=== PATIENT | female | born 1935 | race Caucasian/White ===

== ENCOUNTER 2016-10-21 21:25 | Emergency (ER) | payer MEDICARE, OTHER ==
[~2016-10-21] VITALS: Ht 162.6 cm; Wt 136.1 kg
[~2016-10-21 21:25] MED LIST: ASP81TEC PO; ATEN25TA PO; CALC-80 PO; HYDR1TAB71 PO; MTF500T PO; MULT-608 PO; OMEG1CAP51 PO; SERT50TA PO; SMV10T PO
[2016-10-21] MEDS ORDERED: LOSA50TA36 (21:48)
[2016-10-21] MEDS ORDERED: HYDR-3816 PO (21:48)
[2016-10-21] MEDS ORDERED: APIX5TAB PO (21:48)
[2016-10-21] MEDS ORDERED: AMLO5TAB2 PO (21:48)
[2016-10-21] MEDS ORDERED: DULO60CA58 (21:48)
[2016-10-21] MEDS ORDERED: ATEN50TA (21:48)
--- NOTE | 2016-10-21 21:52 | ED Fall/Injury ---
General Chief Complaint: Trauma-Non Activation Stated Complaint: FALL/RIGHT HIP PAIN Nursing Triage Note: FALL TO FLOOR IN BATHROOM TURNING WITH HER WALKER AND LEGS GAVE OUT. NO LOC. Source: patient, RN notes reviewed, EMS notes reviewed Exam Limitations: no limitations History of Present Illness Time seen by provider: 21:51 Initial Comments Patient presents via EMS p/ apparently falling while attempting to sit down on the commode. History of frequent falls c/ last being a week ago @ which time she sustain a laceration b/w her right 4th and 5th toes. Actually sounds like her little toe was probably dislocated and the patient relocated it herself. Did not seek treatment for that fall. Admits that once she is down, she can't get back up on her own and needs assistance which it sounds like why EMS was originally called [facility]. Patient apparently mentioned her right hip hurt a little and that is why she was ultimately brought in. Denying any hip pain or any other problems @ present. States she didn't hit her head and denies any LOC. Location Injury Occurred: HOME Occurred: just prior to arrival Injuries/Pain Location: no injury Context: lost balance Loss of Consciousness: no loss of consciousness Modifying Factors: Improves With Other (none) Associated Symptoms (Fall): Denies Symptoms Allergies and Home Medications Allergies Coded Allergies: No Known Drug Allergies (Unverified , 02/14/10) Home Medications Amlodipine Besylate 5 Mg Tablet, #30 (Reported) Apixaban 5 Mg Tablet, #180 (Reported) Aspirin 81 Mg Tabec, 81 MG PO DAILY, (Reported) Atenolol 50 Mg Tablet, #90 (Reported) Calcium Carbonate/Vitamin D3 1 Each Tablet, 1 EACH PO BID, (Reported) Duloxetine HCl 60 Mg Capsule.dr, #30 (Reported) Hydrocodone/Acetaminophen 1 Each Tablet, #60 (Reported) Losartan Potassium 50 Mg Tablet, #90 (Reported) Metformin Hcl 500 Mg Tablet, 1 EACH PO BID WITH MEALS, (Reported) Multivitamins 1 Tab Tablet, 1 TAB PO DAILY, (Reported) Mupirocin Calcium 15 Gm Cream..g., 1 APPLIC TP BID, #22 Ref 0 Prescribed by: VIJAY OSUNA on 10/21/163 [place]-3 Fatty Acids/Fish Oil 1 Each Capsule, 1 EACH PO DAILY, (Reported) Sertraline Hcl 50 Mg Tablet, 25 MG PO DAILY, (Reported) Simvastatin 10 Mg Tab, 10 MG PO DAILY, (Reported) Constitutional: see HPI : No All Other Systems Reviewed Negative Unless Noted: Yes (Negative excepted noted.) Past Qdhqlyy-Kzpatk-Ebnxev Hx Patient Social History Alcohol Use: Denies Use Recreational Drug Use: No Smoking Status: Former Smoker Type Used: Cigarettes Recent Foreign Travel: No Contact w/Someone Who Travel: No Recent Infectious Disease Expo: No Recent Hopitalizations: No Seasonal Allergies Seasonal Allergies: No Surgeries HX Surgeries: Yes Surgeries: Appendectomy, Bowel Surgery Respiratory Hx Respiratory Disorders: No Cardiovascular Hx Cardiac Disorders: Yes Cardiac Disorders: High Cholesterol, Hypertension Neurological Hx Neurological Disorders: No Reproductive System Hx Reproductive Disorders: No Sexually Transmitted Disease: No Genitourinary Hx Genitourinary Disorders: No Gastrointestinal Hx Gastrointestinal Disorders: Yes (DIVERTICULITIS) Musculoskeletal Hx Musculoskeletal Disorders: Yes (ARTHRITIS) Musculoskeletal Disorders: Arthritis Endocrine Hx Endocrine Disorders: Yes Endocrine Disorders: Diabetes, Non-Insulin dep HEENT HX ENT Disorders: No HEENT Disorders: Cataract Cancer Hx Cancer: No Psychosocial Hx Psychiatric Problems: Yes Behavioral Health Disorders: Depression Integumentary HX Skin/Integumentary Disorder: No Blood Transfusions Hx Blood Disorders: No Physical Exam Vital Signs Vital Sign - Last 12Hours 10/21/16 21:25 Temp 97.2 Pulse 108 Resp 20 B/P (MAP) 104/53 Pulse Ox 93 O2 Delivery Room Air Capillary Refill : Less Than 3 Seconds General Appearance: WD/WN, no apparent distress, obese HEENT: normal ENT inspection Neck: normal inspection Cardiovascular: regular rate, rhythm Respiratory: no respiratory distress Gastrointestinal: soft, other (obese) Rectal: deferred Back: normal inspection Extremities: normal inspection Neurologic/Psychiatric: no motor/sensory deficits, alert, oriented x 3 Skin: warm/dry, other (clotted blood over laceration b/w her right 4th and 5th toes. Doesn't appear infected, but is overly moist appearing.) Megan Coma Score Best Eye Response: (4) Open Spontaneously Best Verbal Response: (5) Oriented Best Motor Response: (6) Obeys Commands Megan Total: 15 Progress/Results/Core Measures Results/Orders My Orders Orders - VIJAY OSUNA DO Pelvis (10/21/16 21:53) Hip, Right, 2 Views (10/21/16 21:53) Vital Signs/I&O Vital Sign - Last 12Hours 10/21/16 10/21/16 10/21/16 21:25 23:06 23:06 Temp 97.2 97.2 97.2 Pulse 108 93 93 Resp 20 20 20 B/P (MAP) 104/53 116/62 (80) Pulse Ox 93 97 97 O2 Delivery Room Air Room Air Blood Pressure Mean: 70 Progress Note : Progress Note Told the patient to quick soaking her foot/laceration in H2O@ & H2O. To let the wound dry out some. Will have her place some Bactroban on it BID (Rx given) . Diagnostic Imaging Diagonstic Imaging: Xray Plain Films/CT/US/NM/MRI: pelvis, hip Reviewed: Reviewed by Me (nothing acute) Departure Impression Impression: Primary Impression: Fall Additional Impressions: Contusion of right hip region Laceration of foot Disposition: HOME, SELF-CARE Condition: Stable Departure-Patient Inst. Decision time for Depature: 22:41 Referrals: JEFFERSON VILLAGOMEZ DO (PCP/Family) Primary Care Physician Patient Instructions: Wound Care (DC) Scripts Mupirocin Calcium (Bactroban) 15 Gm Cream..g. 1 APPLIC TP BID, #22 TUBE 0 Refills Prov: VIJAY OSUNA DO 10/21/16 VIJAY OSUNA DO Oct 21, 2016 21:52
[2016-10-21] MEDS ORDERED: MUPI15CR TP (22:42)
[2016-10-21 23:06] VITALS: BP 116/62
--- NOTE | 2016-10-22 07:36 | Diagnostic Imaging Report ---
INDICATION: Pain. FINDINGS: There are degenerative changes in the lumbar spine. Bony pelvis is intact. There is no fracture or dislocation. Soft tissues are unremarkable. IMPRESSION: Degenerative change in the lumbar spine. No acute fracture or dislocation. Dictated by: Dictated on workstation # [id number]
--- NOTE | 2016-10-22 07:37 | Diagnostic Imaging Report ---
INDICATION: Back pain. 2 views were obtained. FINDINGS: The alignment is normal. There are mild degenerative changes. There is no fracture or dislocation. Soft tissues are unremarkable. IMPRESSION: Mild degenerative changes in the right hip, otherwise unremarkable. Dictated by: Dictated on workstation # [id number]
--- OUTSIDE RECORDS SUMMARY | 2016-10-24 10:46 | XMS REPORT | Clinical Summary ---
Author Author User, [employer] Organization [facility]ly [facility], [facility] Physician [place] Address Unknown Phone Unavailable Allergies, Adverse Reactions, Alerts Allergy Name Reaction Description Start Date Severity Status Provider No Known Allergies Shakila Wheatley Conditions or Problems Problem Name Problem Code Onset Date Status Entry Date Provider Comment Standard Description Annotate HYPERTENSION 401.1 Active Gita Helton Benign essential hypertension HYPERCHOLESTEROLEMIA 272.0 Active Gita Helton Pure hypercholesterolemia EDEMA LEG 782.3 Active Gita Helton Edema DIVERTICULOSIS, COLON 562.10 Resolved Gita Helton Diverticulosis of colon (without mention of hemorrhage) KNEE PAIN 719.46 Resolved Gita Helton Pain in joint involving lower leg WEIGHT GAIN, ABNORMAL 783.1 Active Gita Helton Abnormal weight gain WHEEZING 786.07 Resolved Gita Helton Wheezing COUGH 786.2 Resolved Gita Helton Cough SINUS CONGESTION 478.1 Resolved Gita Helton Other diseases of nasal cavity and sinuses GRIEF REACTION, ACUTE 309.0 Resolved Gita Helton Adjustment disorder with depressed mood DERMATITIS 692.9 Resolved Gita Helton Contact dermatitis and other eczema, unspecified cause SCREENING MAMMOGRAM NEC V76.12 Resolved Gita Helton Other screening mammogram BREAST MASS, RIGHT 611.72 Resolved Gita Helton Lump or mass in breast SCREENING FOR OSTEOPOROSIS V82.81 Resolved Gita Helton Screening for osteoporosis HYPERGLYCEMIA, MILD 790.6 Resolved Gita Helton Other abnormal blood chemistry ANKLE PAIN, LEFT 719.47 Resolved Gita Helton Pain in joint involving ankle and foot VERTIGO 780.4 Resolved Gita Helton Dizziness and giddiness DVT 453.40 Resolved Gita Helton Acute venous embolism and thrombosis of unspecified deep vessels of lower extremity OSTEOARTHRITIS 715.90 Active Gita Helton Osteoarthrosis, unspecified whether generalized or localized, involving unspecified site MAMMOGRAM, ABNORMAL, RIGHT 793.81 Resolved Gita Helton Mammographic microcalcification 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 Gita Helton Displacement of lumbar intervertebral disc without myelopathy ANXIETY 300.00 Active Gita Helton Anxiety state, unspecified CHEST PAIN, ATYPICAL 786.59 Resolved Gita Helton Other chest pain KNEE PAIN 719.46 Resolved Gita Helton Pain in joint involving lower leg CHEST PAIN, ATYPICAL 786.59 Resolved Gita Helton Other chest pain DIABETES MELLITUS, NONINSULIN DEPENDENT (NIDDM) 250.02 Active Gita Helton Diabetes mellitus without mention of complication, type II or unspecified type, uncontrolled URTICARIA, ACUTE 708.9 Resolved Gita Helton Unspecified urticaria ACNE ROSACEA 695.3 Active Gita Helton Rosacea ABDOMINAL MASS 789.30 Resolved Gita Helton Abdominal or pelvic swelling, mass, or lump, unspecified site KNEE PAIN 719.46 Active Gita Helton Pain in joint involving lower leg ATRIAL FIBRILLATION 427.31 Active Gita Helton Atrial fibrillation Medication List Medication Instructions Start Date Stop Date Generic Name ND Status Provider Patient Instruction AMBIEN 10 MG TAB 1 PO QHS prn ZOLPIDEM TARTRATE 64070392217 Active Gita Helton LASIX 20 MG TAB 1 PO QD prn for swelling FUROSEMIDE 59428571338 No Longer Active Gita Helton VITAMIN D3 5000 UNIT CAPS 1 PO daily CHOLECALCIFEROL 34408140295 Active Gita Helton NAPROXEN 500 MG TAB 1 PO BID NAPROXEN 71493942492 No Longer Active Gitanaseem Helton AMBIEN 10 MG TAB 1 PO QHS prn ZOLPIDEM TARTRATE 66244359587 No Longer Active Gita Helton ATENOLOL 50 MG TABS 1 PO daily ATENOLOL 81127654628 Active Gita Helton COZAAR 50 MG TAB 1 PO daily LOSARTAN POTASSIUM 24459795826 Active Gita Helton ELIQUIS 5 MG TABS 1 PO BID APIXABAN 64264158371 Active Gita Helton HYDROCODONE-ACETAMINOPHEN 7.5-325 MG TABS 1 PO BID prn HYDROCODONE- ACETAMINOPHEN 72467262247 Active Gita Helton TUSSIONEX PENNKINETIC ER 10-8 MG/5ML LQCR 1 tsp PO BID prn HYDROCOD POLST-CHLORPHEN POLST 79519994578 Active Val Luis FLEXERIL 10 MG TAB 1 PO TID prn CYCLOBENZAPRINE HCL 86497165376 No Longer Active Gita Helton ATROVENT 0.06 % SOLN 2 puffs each nostril QHS. IPRATROPIUM BROMIDE 33392450339 No Longer Active Gita Haleigh Helton MOTRIN 600 MG TAB 1 po q 8 hrs prn IBUPROFEN 00917528517 No Longer Active Gita Haleigh Helton TRIAMCINOLONE ACETONIDE 0.1 % CREA apply BID prn TRIAMCINOLONE ACETONIDE (TOP) 39349788235 No Longer Active Gita Haleigh Helton MECLIZINE HCL 25 MG TABS 1 PO Q6hrs prn dizziness MECLIZINE HCL 36890863519 No Longer Active Gita Haleigh Helton TUSSIONEX PENNKINETIC ER 8-10 MG/5ML LQCR 1 tsp BID prn cough CHLORPHENIRAMINE-HYDROCODONE 31184536695 No Longer Active Gitanaseem Helton OSTEO COMPLEX CAPS DIRECTED BID MULTIPLE VITAMINS-MINERALS 79939706364 No Longer Active Gita Haleigh Helton MICHELE 180 MG TABS 1 PO BID for 7 days FEXOFENADINE HCL No Longer Active Gitanaseem Helton PREDNISONE 20 MG TAB 3 pills daily at once for 2 days, 2 pills daily at once for 5 days, 1 once daily for 3 days PREDNISONE 87368035773 No Longer Active Gita Helton NORVASC 5 MG TAB 1 PO QD AMLODIPINE BESYLATE 17564572329 Active Lei De Leon METROGEL 1 % GEL apply daily to affected areas on nose and cheeks METRONIDAZOLE 54678557716 No Longer Active Gitanaseem Helton AURALGAN SOLN 2 drops left ear QID prn ANTIPYRINE- BENZOCAINE-POLYCOS 92417497893 No Longer Active Val Luis PERCOCET 5-325 MG TAB 1 PO Q 6 hours PRN alternating with hydrocodon PRN 2008 OXYCODONE-ACETAMINOPHEN 80276294277 No Longer Active Gita Haleigh Helton XANAX 0.25 MG TABS 1 PO BID prn ALPRAZOLAM 34630336761 Active Samira Casey PREDNISONE 20 MG TAB 3 pills daily at once for 2 days, 2 pills daily at once for 2 days, 1 once daily for 2 days PREDNISONE 09868663639 No Longer Active Gita Haleigh Helton LORTAB 5 5-500 MG TABS 1 to 2 PO Q6hrs prn ACETAMINOPHEN-HYDROCODONE 55457031227 No Longer Active Gita Haleigh Helton XANAX 0.25 MG TABS 1 Po Q6hrs prn ALPRAZOLAM 18629399278 No Longer Active Gita Haleigh Helton AMBIEN 5 MG TABS 1 PO AT HS PRN ZOLPIDEM TARTRATE 77749827556 No Longer Active Gita Haleigh Helton ZOLOFT 50 MG TAB 1 PO Daily SERTRALINE HCL 44598576100 Active Val Luis FISH OIL 1000 MG CAPS 1 PO daily [place]-3 FATTY ACIDS 52297341174 Active Gita Haleigh Helton CALTRATE 600 PLUS-VIT D 600-200 MG-IU TABS 1 PO BID CALCIUM-VITAMIN D 95387542267 Active Gita Haleigh Helton AMBIEN 10 MG TAB 1/2 to 1 po daily at HS prn ZOLPIDEM TARTRATE 26440371316 No Longer Active Gitanaseem Helton CYMBALTA 20 MG CPEP 1 po daily DULOXETINE HCL 89237108868 No Longer Active Harish Cook HISTINEX HC 5-2-2.5 MG/5ML SYRP 5 cc PO Q6hrs. PRN cough [id number] 17290451083 No Longer Active Gita Haleigh Helton METFORMIN HCL 500 MG TABS 1 po BID METFORMIN HCL 67374174921 Active Val Luis NAPROXEN 500 MG TAB 1 PO BID for 7 days NAPROXEN 45866619496 No Longer Active Maura Chong DARVOCET-N 100 100-650 MG TAB 1 PO Q6hrs prn shoulder pain PROPOXYPHENE N-APAP 60281565772 No Longer Active Gita Haleigh Helton GLUCOPHAGE 500 MG TAB 1 PO BID METFORMIN HCL 18182034462 No Longer Active Gita Haleigh Helton CLARINEX 5 MG TABS 1 PO daily DESLORATADINE 68140590030 No Longer Active Gita Haleigh Helton ZOCOR 10 MG TABS 1 PO daily for cholesterol SIMVASTATIN 95559942260 Active Val Lius METFORMIN HCL 500 MG TABS 1 PO BID METFORMIN HCL 79564433087 No Longer Active Gita Haleigh Helton AMBIEN 10 MG TABS 1 PO QHS prn insomnia ZOLPIDEM TARTRATE 48390783776 No Longer Active Gita Haleigh Helton ASPIRIN 81 MG TAB 1 PO daily ASPIRIN 97518140006 Active Gita Haleigh Helton CLARINEX 5 MG TABS 1 po daily DESLORATADINE 96324644143 No Longer Active Gita Haleigh Helton MOBIC 7.5 MG TABS 1 PO BID for knee pain MELOXICAM 56697544518 No Longer Active Gita Haleigh Helton K-DUR 10 MEQ TAB CR 1 PO daily POTASSIUM CHLORIDE 87893468196 No Longer Active Gita Haleigh Helton LASIX 40 MG TABS 1 PO daily prn FUROSEMIDE 50099635664 No Longer Active Gita Haleigh Helton LUNESTA 2 MG TABS 1 PO QHS prn ESZOPICLONE 64046584567 No Longer Active Gita Haleigh Helton VIACTIV 500-100-40 CHEW 1 PO BID CALCIUM-VITAMIN D-VITAMIN K 61858465595 No Longer Active Gita Haleigh Helton HISTINEX HC 5-2-2.5 MG/5ML SYRP 1 tsp PO Q6hrs prn [id number] 48543842137 No Longer Active Gita Haleigh Helton KENALOG 0.1 % CREA Apply to arms daily prn TRIAMCINOLONE ACETONIDE 31857907132 No Longer Active Gita Haleigh Helton PREDNISONE 20 MG TABS 2 PO daily for 2 days and then 1 PO daily for 3 days PREDNISONE 30276083946 No Longer Active Gita Haleigh Helton AMBIEN 10 MG TABS 1/2 to 1 po daily at HS prn ZOLPIDEM TARTRATE 97697624020 No Longer Active Gita Haleigh Helton PREDNISONE 20 MG TAB 1 PO QD for 3 days PREDNISONE 15868589747 No Longer Active Crystal LaGalle NAPROXEN 500 MG TAB 1 PO BID for 7 days NAPROXEN 48578545140 No Longer Active Crystal LaGalle CALTRATE 600 PLUS-VIT D 600-200 MG-IU TABS 1 PO QD CALCIUM- VITAMIN D 17757614220 No Longer Active Gitanaseem Helton ADVAIR DISKUS 100-50 MCG/DOSE MISC 1 puff BID FLUTICASONE-SALMETEROL 66640582061 No Longer Active Gita Haleigh Helton MUCINEX DM 30-600 MG TB12 1 PO Q12 hrs prn cough DEXTROMETHORPHAN-GUAIFENESIN 83583652835 No Longer Active Gita Haleigh Helton NAPROXEN 500 MG TAB 1 PO BID for 5 days NAPROXEN 29476673864 No Longer Active Gita Haleigh Helton PREDNISONE 20 MG TABS 1 PO BID for 3 days PREDNISONE 50686982976 No Longer Active Gita Haleigh Helton ZOLOFT 50 MG TABS 1 po daily SERTRALINE HCL 67726859423 No Longer Active Gita Haleigh Sunitha Immunizations Vaccine Administration Date Value Standard Description Influenza vaccine given declines influenza virus vaccine, unspecified formulation pneumococcal immunization administered declines pneumococcal polysaccharide vaccine, 23 valent Vital Signs Date Name Value Unit Range Description blood pressure, diastolic - 8462-4 88 mm[Hg] BP herrera blood pressure, systolic - 8480-6 130 mm[Hg] BP sys pulse rate E&M - 8867-4 80 /min Heart rate respiratory rate E&M - 9279-1 14 /min Resp rate weight E&M - 3141-9 304 [lb_av] Weight Measured blood pressure, diastolic - 8462-4 80 mm[Hg] BP herrera blood pressure, systolic - 8480-6 143 mm[Hg] BP sys pulse rate E&M - 8867-4 72 /min Heart rate respiratory rate E&M - 9279-1 14 /min Resp rate temperature E&M 98.6 [degF] Body temperature weight E&M - 3141-9 305 [lb_av] Weight Measured blood pressure, diastolic - 8462-4 72 mm[Hg] BP herrera blood pressure, systolic - 8480-6 144 mm[Hg] BP sys pulse rate E&M - 8867-4 76 /min Heart rate respiratory rate E&M - 9279-1 14 /min Resp rate weight E&M - 3141-9 323 [lb_av] Weight Measured Diagnostic Results Date Name Value Unit Range Description Clinical Lists Update: CBC,CMP,FLP,HgA1c - Chemistry Estimated Glomerular Filtration Rate (calc) >60 mL/min/1.73m2 glucose, plasma fasting 104 mg/dL very low density lipoproteins 30 mg/dL sodium, serum 142 mmol/L triglyceride, serum, fasting 152 mg/dL bilirubin, serum, total 0.7 mg/dL alanine aminotransferase (SGPT), serum 26 U/L aspartate aminotransferase (SGOT), serum 27 U/L protein, total, serum 7.3 g/dL potassium, serum 4.0 mmol/L LDL cholesterol, serum 87 mg/dL hemoglobin A1C, blood, as % of total hemoglobin 5.9 % HDL cholesterol, serum 83 mg/dL creatinine, serum 0.72 mg/dL carbon dioxide, venous blood 21 mmol/L cholesterol, serum 195 mg/dL chloride, serum 108 mmol/L calcium, serum 9.3 mg/dL urea nitrogen, blood 10 mg/dL alkaline phosphatase, serum 52 U/L albumin, serum 4.0 g/dL Clinical Lists Update: CBC,CMP,FLP,HgA1c - Hematology erythrocyte (RBC) count 4.59 10*6/mm3 red blood cell distribution width 14.1 % hematocrit, blood 42 % mean corpuscular volume, RBC 92 fL platelet count 241 10*3/mm3 leukocyte count, blood 6.6 10*3/mm3 hemoglobin, blood 14.1 g/dL Clinical Lists Update: CMP,Chol,Trig,HgA1c - Chemistry aspartate aminotransferase (SGOT), serum 23 U/L alanine aminotransferase (SGPT), serum 22 U/L bilirubin, serum, total 0.7 mg/dL triglyceride, serum, fasting 134 mg/dL sodium, serum 140 mmol/L glucose, plasma fasting 106 mg/dL Estimated Glomerular Filtration Rate (calc) >60 mL/min/1.73m2 creatinine, serum 0.72 mg/dL albumin, serum 4.1 g/dL alkaline phosphatase, serum 44 U/L urea nitrogen, blood 13 mg/dL calcium, serum 9.4 mg/dL chloride, serum 105 mmol/L cholesterol, serum 184 mg/dL carbon dioxide, venous blood 23 mmol/L hemoglobin A1C, blood, as % of total hemoglobin 6.1 % potassium, serum 4.0 mmol/L protein, total, serum 7.2 g/dL Clinical Lists Update: CMP,FLP - Chemistry carbon dioxide, venous blood 24 mmol/L aspartate aminotransferase (SGOT), serum 17 U/L cholesterol, serum 179 mg/dL triglyceride, serum, fasting 133 mg/dL chloride, serum 106 mmol/L sodium, serum 142 mmol/L calcium, serum 9.9 mg/dL very low density lipoproteins 27 mg/dL urea nitrogen, blood 14 mg/dL glucose, plasma fasting 98 mg/dL alanine aminotransferase (SGPT), serum 14 U/L creatinine, serum 0.79 mg/dL bilirubin, serum, total 0.8 mg/dL HDL cholesterol, serum 78 mg/dL albumin, serum 4.2 g/dL LDL cholesterol, serum 81 mg/dL potassium, serum 4.0 mmol/L Estimated Glomerular Filtration Rate (calc) >60 mL/min/1.73m2 protein, total, serum 7.1 g/dL alkaline phosphatase, serum 48 U/L Clinical Lists Update: Microalbumin - Urinalysis microalbumin, urine, semiquantitative 35.3 mg/dL Encounters Code Encounter Date Provider Facility CPT-22122 Ofc Vst, Est Level IV 15:18:02 UMA Helton DO, FAC CPT-26578 Ofc Vst, Est Level IV 17:35:51 CDT Gita Haleigh Weems Helton, DO, FACP CPT-15797 Ofc Vst, Est Level III 12:34:20 CDT Gita Haleigh Weems Helton, DO, FACP CPT-57747 Ofc Vst, Est Level III 20:55:26 CDT Gita Haleigh Weems Helton, DO, FACP CPT-85144 Ofc Vst, Est Level IV 10:29:22 CDT Gita Haleigh Weems Helton, DO, FACP CPT-20198 Ofc Vst, Est Level IV 11:05:40 CDT Gita Haleigh Weems Sunitha, DO, FACP CPT-69272 Ofc Vst, Est Level III 11:28:59 CDT Gita Haleigh Weems Sunitha, DO, FACP CPT-10611 Ofc Vst, Est Level IV 11:27:36 CDT Gita Haleigh Weems Sunitha, DO, FACP CPT-66322 Ofc Vst, Est Level IV 10:53:32 [employer] Gita Weems Sunitha, DO, FACP CPT-45657 Ofc Vst, Est Level IV 15:49:54 CDT Gita Haleigh Weems Sunitha, DO, FACP CPT-06963 Ofc Vst, Est Level IV 11:28:10 [employer] Gitanaseem Weems Sunitha, DO, FACP CPT-98323 Ofc Vst, Est Level IV 11:56:10 CDT Gita Haleigh Weems Sunitha, DO, FACP CPT-75223 Ofc Vst, Est Level IV 12:04:06 CDT Gita Haleigh Weems Sunitha, DO, FACP CPT-47214 Ofc Vst, Est Level V 11:23:16 CDT Gita Weems Helton, DO, FACP CPT-94971 Ofc Vst, Est Level IV 11:47:17 [employer] Gita Weems Helton, DO, FACP CPT-33558 Ofc Vst, Est Level V 10:02:16 CDT Gita Weems Helton, DO, FACP CPT-45696 Ofc Vst, Est Level IV 08:43:25 CDT Val Weems Helton, DO, FACP CPT-89076 Ofc Vst, Est Level IV 10:39:12 [employer] Gita Haleigh Weems Helton, DO, FACP CPT-29713 Ofc Vst, Est Level IV 10:59:49 [employer] Gita Weems Sunitha, DO, FACP CPT-27578 Ofc Vst, Est Level V 10:46:55 [employer] Gita Weems Helton, DO, FACP CPT-40998 Ofc Vst, Est Level IV 12:04:42 CDT Gita Weems Helton, DO, FACP CPT-27596 Ofc Vst, Est Level IV 11:14:36 [employer] Gita Weems Sunitha, DO, FACP CPT-46336 Ofc Vst, Est Level IV 10:18:40 CDT Gitanaseem Weems Helton, DO, FACP CPT-36356 Ofc Vst, Est Level IV 16:46:18 CDT Gita Haleigh Weems Sunitha, DO, FACP CPT-61476 Ofc Vst, Est Level III 11:32:07 [employer] Gita Haleigh Sunitha [employer] CPT-27960 Ofc Vst, Est Level IV 14:09:38 [employer] Gita Helton [employer] CPT-52400 Ofc Vst, Est Level IV 10:03:11 [employer] Gita Helton [employer] CPT-44724 Ofc Vst, Est Level IV 12:03:11 CDT Gita Haleighanshu Helton [employer] CPT-37911 Ofc Vst, Est Level III 09:48:20 CDT Gita Haleigh Helton [facility] [employer] CPT-58065 Ofc Vst, Est Level III 16:19:43 CDT Gita Haleihg Helton [employer] CPT-50772 Ofc Vst, Est Level IV 11:04:51 [employer] Gita Helton [employer] CPT-43380 Ofc Vst, Est Level III 10:47:19 [employer] Gita Helton [facility] [employer] CPT-04899 Ofc Vst, Est Level III 14:33:20 [employer] Gita Helton [facility] [employer] CPT-85535 Ofc Vst, New Level III 14:54:02 [employer] Gita Helton [employer] Procedures Code Procedure Name Date Entry Date Standard Description CPT-G0439 Medicare Annual Wellness Visit 16:35:13 CDT CPT-G8445 E-Prescribing Not sent due to no medication given 20:31: 07 [employer] CPT-G0439 Medicare Annual Wellness Visit 20:31:07 [employer] CPT-G8446 E-Prescribing not done due to controlled substance 12:34 :20 CDT CPT-G8443 E-Prescribing Medication Sent 20:55:26 CDT CPT-G8446 E-Prescribing not done due to controlled substance 17:19 :30 [employer] CPT-G0438 Medicare Annual Wellness Visit Initial 17:19:30 [employer] MAN
--- OUTSIDE RECORDS SUMMARY | 2016-10-24 10:47 | XMS REPORT | Clinical Summary ---
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 Active iGta [place] Diabetes mellitus without mention of complication, [...] Generic Name ND Status Provider Patient Instruction NAPROXEN 500 MG TAB 1 PO BID NAPROXEN [id number] No Longer Active Gita Helton AMBIEN 10 MG TAB 1 PO QHS prn ZOLPIDEM TARTRATE 69184784158 No Longer Active Gita Helton ATENOLOL 50 MG TABS 1 PO daily ATENOLOL 92828813689 Active Gita Helton COZAAR 50 MG TAB 1 PO daily LOSARTAN POTASSIUM 00683728044 Active Gita Hleton ELIQUIS 5 MG TABS 1 PO BID APIXABAN 46967668801 Active Gita Helton HYDROCODONE-ACETAMINOPHEN 7.5-325 MG TABS 1 PO BID prn HYDROCODONE- ACETAMINOPHEN 29496655359 Active Val Luis TUSSIONEX PENNKINETIC ER 10-8 MG/5ML LQCR 1 tsp PO BID prn HYDROCOD POLST-CHLORPHEN POLST 25484683818 Active Val Luis FLEXERIL 10 MG TAB 1 PO TID prn CYCLOBENZAPRINE HCL 26349947772 No Longer Active Gita Helton ATROVENT 0.06 % SOLN 2 puffs each nostril QHS. IPRATROPIUM BROMIDE 83039605395 No Longer Active Gita Helton MOTRIN 600 MG TAB 1 po q 8 hrs prn IBUPROFEN 93324992450 No Longer Active Gita Helton TRIAMCINOLONE ACETONIDE 0.1 % CREA apply BID prn TRIAMCINOLONE ACETONIDE (TOP) 16146025588 No Longer Active Gita Helton MECLIZINE HCL 25 MG TABS 1 PO Q6hrs prn dizziness MECLIZINE HCL 27610924837 No Longer Active Gitanaseem Helton TUSSIONEX PENNKINETIC ER 8-10 MG/5ML LQCR 1 tsp BID prn cough CHLORPHENIRAMINE-HYDROCODONE 16688980066 No Longer Active Gitanaseem Helton OSTEO COMPLEX CAPS DIRECTED BID MULTIPLE VITAMINS-MINERALS 08492161470 No Longer Active Gitanaseem Helton MICHELE 180 MG TABS 1 PO BID for 7 days FEXOFENADINE HCL No Longer Active Gita Helton PREDNISONE 20 MG TAB 3 pills daily at once for 2 days, 2 pills daily at once for 5 days, 1 once daily for 3 days PREDNISONE 22151655474 No Longer Active Gita Helton NORVASC 5 MG TAB 1 PO QD AMLODIPINE BESYLATE 38035706206 Active Lei Jacksonnes VITAMIN D 1000 UNIT TABS 1 PO Daily CHOLECALCIFEROL 05741152095 Active Gita Helton METROGEL 1 % GEL apply daily to affected areas on nose and cheeks METRONIDAZOLE 57445552087 No Longer Active Gita Helton AURALGAN SOLN 2 drops left ear QID prn ANTIPYRINE- BENZOCAINE-POLYCOS 68652891159 No Longer Active Val [place] PERCOCET 5-325 MG TAB 1 PO Q 6 hours PRN alternating with hydrocodon PRN 2008 OXYCODONE-ACETAMINOPHEN 61883822234 No Longer Active Gitanaseem Helton XANAX 0.25 MG TABS 1 PO BID prn ALPRAZOLAM 94832704893 Active Samira Casey PREDNISONE 20 MG TAB 3 pills daily at once for 2 days, 2 pills daily at once for 2 days, 1 once daily for 2 days PREDNISONE 49023599052 No Longer Active Gita Haleigh [place] LORTAB 5 5-500 MG TABS 1 to 2 PO Q6hrs prn ACETAMINOPHEN-HYDROCODONE 77447475429 No Longer Active Gita Haleigh [place] XANAX 0.25 MG TABS 1 Po Q6hrs prn ALPRAZOLAM 19937185376 No Longer Active Gita Haleigh [place] AMBIEN 5 MG TABS 1 PO AT HS PRN ZOLPIDEM TARTRATE 19338946711 No Longer Active Gita Haleigh [place] ZOLOFT 50 MG TAB 1 PO Daily SERTRALINE HCL 47013342215 Active Val Luis FISH OIL 1000 MG CAPS 1 PO daily OMEGA-3 FATTY ACIDS 22447861923 Active Gita Haleigh [place] CALTRATE 600 PLUS-VIT D 600-200 MG-IU TABS 1 PO BID CALCIUM-VITAMIN D 36584783850 Active Gita Haleigh [place] AMBIEN 10 MG TAB 1/2 to 1 po daily at HS prn ZOLPIDEM TARTRATE 21019235288 No Longer Active Gitanaseem [place]ton CYMBALTA 20 MG CPEP 1 po daily DULOXETINE HCL 29143249090 No Longer Active Harish Cook HISTINEX HC 5-2-2.5 MG/5ML SYRP 5 cc PO Q6hrs. PRN cough MHZOXLOID-AMYXZEGYH-VEHBPRYG 27106738660 No Longer Active Gita Haleigh [place] METFORMIN HCL 500 MG TABS 1 po BID METFORMIN HCL 77196292009 Active Val Luis NAPROXEN 500 MG TAB 1 PO BID for 7 days NAPROXEN 20562690664 No Longer Active Maura Chong DARVOCET-N 100 100-650 MG TAB 1 PO Q6hrs prn shoulder pain PROPOXYPHENE N-APAP 39304626281 No Longer Active Gita Haleigh [place] LASIX 20 MG TAB 1 PO QD prn for swelling FUROSEMIDE 82088510277 Active Val Luis GLUCOPHAGE 500 MG TAB 1 PO BID METFORMIN HCL 48842192616 No Longer Active Gita Haleigh [place] CLARINEX 5 MG TABS 1 PO daily DESLORATADINE 89968915333 No Longer Active Gita Haleigh [place] ZOCOR 10 MG TABS 1 PO daily for cholesterol SIMVASTATIN 51676262738 Active Val Luis METFORMIN HCL 500 MG TABS 1 PO BID METFORMIN HCL 21396016574 No Longer Active Gita Haleigh [place] AMBIEN 10 MG TABS 1 PO QHS prn insomnia ZOLPIDEM TARTRATE 39317826118 No Longer Active Gita Haleigh [place] ASPIRIN 81 MG TAB 1 PO daily ASPIRIN 94493481223 Active Gita Haleigh [place] CLARINEX 5 MG TABS 1 po daily DESLORATADINE 07279827534 No Longer Active Gita Haleigh [place] MOBIC 7.5 MG TABS 1 PO BID for knee pain MELOXICAM 44885023187 No Longer Active Gita Haleigh [place] K-DUR 10 MEQ TAB CR 1 PO daily POTASSIUM CHLORIDE 04391254581 No Longer Active Gita Haleigh [place] LASIX 40 MG TABS 1 PO daily prn FUROSEMIDE 35779971141 No Longer Active Gita Haleigh [place] LUNESTA 2 MG TABS 1 PO QHS prn ESZOPICLONE 42069131113 No Longer Active Gita Haleigh [place] VIACTIV 500-100-40 CHEW 1 PO BID CALCIUM-VITAMIN D-VITAMIN K 29603869436 No Longer Active Gita Haleigh [place] HISTINEX HC 5-2-2.5 MG/5ML SYRP 1 tsp PO Q6hrs prn PPXEJNCVG-IQCXSRONY-SIDGSBLX 83809539599 No Longer Active Gita Haleigh [place] KENALOG 0.1 % CREA Apply to arms daily prn TRIAMCINOLONE ACETONIDE 54676678706 No Longer Active Gita Haleigh [place] PREDNISONE 20 MG TABS 2 PO daily for 2 days and then 1 PO daily for 3 days PREDNISONE 96398290659 No Longer Active Gita Haleigh [place] AMBIEN 10 MG TABS 1/2 to 1 po daily at HS prn ZOLPIDEM TARTRATE 47636914995 No Longer Active Gita Haleigh [place] PREDNISONE 20 MG TAB 1 PO QD for 3 days PREDNISONE 40868296839 No Longer Active Crystal LaGalle NAPROXEN 500 MG TAB 1 PO BID for 7 days NAPROXEN 12211204836 No Longer Active Crystal LaGalle CALTRATE 600 PLUS-VIT D 600-200 MG-IU TABS 1 PO QD CALCIUM- VITAMIN D 18755594611 No Longer Active Gita Haleigh [place] ADVAIR DISKUS 100-50 MCG/DOSE MISC 1 puff BID FLUTICASONE-SALMETEROL 09977565761 No Longer Active Gita Haleigh [place] MUCINEX DM 30-600 MG TB12 1 PO Q12 hrs prn cough DEXTROMETHORPHAN-GUAIFENESIN 54977009258 No Longer Active Gitanaseem Helton NAPROXEN 500 MG TAB 1 PO BID for 5 days NAPROXEN 93862649448 No Longer Active Gita Haleigh [place] PREDNISONE 20 MG TABS 1 PO BID for 3 days PREDNISONE 00930049097 No Longer Active Gita Haleigh [place] ZOLOFT 50 MG TABS 1 po daily SERTRALINE HCL 94546231225 No Longer Active Gita Haleigh [place] Immunizations Vaccine Administration Date Value Standard Description Influenza vaccine given declines influenza virus vaccine, unspecified formulation pneumococcal immunization administered declines pneumococcal polysaccharide vaccine, 23 valent Vital Signs Date Name Value Unit Range Description blood pressure, diastolic - 8462-4 80 mm[Hg] [...] mg/dL Encounters Code Encounter Date Provider Facility CPT-54632 Ofc Vst, Est Level IV 15:18:02 LEATH[facility] CUTTER Gita Helton DO, FACP CPT-42568 Ofc Vst, Est Level IV 17:35:51 CDT Gita Helton DO, FACP CPT-57081 Ofc Vst, Est Level III 12:34:20 CDT Gita [place] DO, FACP CPT-88919 Ofc Vst, Est Level III 20:55:26 CDT Gita [place] DO, FACP CPT-75255 Ofc Vst, Est Level IV 10:29:22 CDT Gita Haleigh [place] Gita S [place], DO, FACP CPT-30743 Ofc Vst, Est Level IV 11:05:40 CDT Gitanaseem Weems [place], DO, FACP CPT-05173 Ofc Vst, Est Level III 11:28:59 CDT Gita Weems [place], DO, FACP CPT-19325 Ofc Vst, Est Level IV 11:27:36 CDT Gita Haleigh Weems [place], DO, FACP CPT-06051 Ofc Vst, Est Level IV 10:53:32 [facility] Gita Weems [place], DO, FACP CPT-04449 Ofc Vst, Est Level IV 15:49:54 CDT Gita Weems [place], DO, FACP CPT-12091 Ofc Vst, Est Level IV 11:28:10 [facility] C[facility] Gita Weems [place], DO, FACP CPT-03767 Ofc Vst, Est Level IV 11:56:10 CDT Gitanaseem Weems [place], DO, FACP CPT-33473 Ofc Vst, Est Level IV 12:04:06 CDT Gita Weems [place], DO, FACP CPT-93199 Ofc Vst, Est Level V 11:23:16 CDT Gitanaseem Weems [place], DO, FACP CPT-58432 Ofc Vst, Est Level IV 11:47:17 [facility] C[facility] Gita Weems [place], DO, FACP CPT-74540 Ofc Vst, Est Level V 10:02:16 CDT Gita Weems [place], DO, FACP CPT-43020 Ofc Vst, Est Level IV 08:43:25 CDT Val Luis Gita Weems Sunitha, DO, FACP CPT-73591 Ofc Vst, Est Level IV 10:39:12 [facility] C[employer] Gita Haleigh Sunitha Gita S Sunitha, DO, FACP CPT-78279 Ofc Vst, Est Level IV 10:59:49 [facility] C[facility] Gita Haleigh Sunitha Gita S [place], DO, FACP CPT-43919 Ofc Vst, Est Level V 10:46:55 [facility] C[facility] Gita Haleigh Sunitha Humphreyi S [place], DO, FACP CPT-75438 Ofc Vst, Est Level IV 12:04:42 CDT Gita Haleigh Sunitha Gita S Sunitha, DO, FACP CPT-39379 Ofc Vst, Est Level IV 11:14:36 [facility] C[facility]TER Gita Haleigh Sunitha Humphreyi S Sunitha, DO, FACP CPT-84721 Ofc Vst, Est Level IV 10:18:40 CDT Gita Haleighanshu Humphreyi S Sunitha, DO, FACP CPT-87638 Ofc Vst, Est Level IV 16:46:18 CDT Gita Haleigh Sunitha Gita S Sunitha, DO, FACP CPT-98923 Ofc Vst, Est Level III 11:32:07 [facility] CUTTER Gita Hel[facility] [place] CPT-39418 Ofc Vst, Est Level IV 14:09:38 [facility] Gita Helton [facility] [place] CPT-24285 Ofc Vst, Est Level IV 10:03:11 [facility] Gita Helton [facility] [place] CPT-99404 Ofc Vst, Est Level IV 12:03:11 CDT Gita Helton [facility] [place] CPT-05772 Ofc Vst, Est Level III 09:48:20 CDT Gita Haleigh [facility] [place] CPT-80258 Ofc Vst, Est Level III 16:19:43 CDT Gita Hel[facility] [place] CPT-34997 Ofc Vst, Est Level IV 11:04:51 [facility] [employer] Gita Helton [facility] [place] CPT-37197 Ofc Vst, Est Level III 10:47:19 [facility] C[employer]TER Gita Helton [facility] [place] CPT-51786 Ofc Vst, Est Level III 14:33:20 [facility] C[employer]TER Gita Helton [facility] [place] CPT-31588 Ofc Vst, New Level III 14:54:02 [facility] C[employer]TER Gita Helton [facility] [place] Procedures Code Procedure Name Date Entry Date Standard Description CPT-G8445 E-Prescribing Not sent due to no medication given 20:31: 07 [facility] C[facility] CPT-G0439 Medicare Annual Wellness Visit 20:31:07 [facility] C[facility] CPT-G8446 E-Prescribing not done due to controlled substance 12:34 :20 CDT CPT-G8443 E-Prescribing Medication Sent 20:55:26 CDT CPT-G8446 E-Prescribing not done due to controlled substance 17:19 :30 [facility]ATH[facility] C[facility]TER CPT-G0438 Medicare Annual Wellness Visit Initial 17:19:30 [facility]TER
--- OUTSIDE RECORDS SUMMARY | 2016-10-24 10:48 | XMS REPORT | Continuity of Care Document ---
Author Author [facility] Organization [facility] Address Unknown Phone Unavailable Allergies Active Description Code Type Severity Reaction Onset Reported/Identified Relationship to Patient Clinical Status Yes No Known Drug Allergies [id number] Drug Allergy Unknown N/ A 02/14/2010 Medications Problems Date Dx Coded Attending Type Code Diagnosis Diagnosed By 09/22/2009 Ot 272.4 09/22/2009 Ot 401.9 09/22/2009 Ot 786.09 09/22/2009 Ot 786.50 09/22/2009 Ot 794.30 02/14/2010 Ot 250.00 02/14/2010 Ot 716.16 02/14/2010 Ot 717.3 02/14/2010 Ot 717.40 02/14/2010 Ot 727.00 02/14/2010 Ot V57.1 02/14/2010 Ot V58.69 06/13/2010 Ot 250.00 06/13/2010 Ot 311 06/13/2010 Ot 401.9 06/13/2010 Ot 719.46 06/13/2010 Ot V57.1 06/13/2010 Ot V58.43 07/14/2010 Ot 250.00 07/14/2010 Ot 311 07/14/2010 Ot 401.9 07/14/2010 Ot 719.46 07/14/2010 Ot V57.1 07/14/2010 Ot V58.43 04/01/2014 TL JC MD Ot 250.00 DIAB JESUS WO COMPL, TYPE II OR UNSPEC TY 04/01/2014 TL JC MD Ot 272.4 HYPERLIPIDEMIA NEC/NOS 04/01/2014 TL JC MD Ot 401.9 HYPERTENSION NOS 04/01/2014 TL JC MD Ot 414.00 CORON ATHEROSCLER NOS TYPE VESSEL, NATIV 04/04/2014 JEFFERSON VILLAGOMEZ DO Ot 250.02 04/04/2014 JEFFERSON VILLAGOMEZ DO Ot 272.0 04/04/2014 JEFFERSON VILLAGOMEZ DO Ot 401.1 04/04/2014 VILLAGOMEZ DO, JEFFERSON Ot V58.69 04/22/2014 VILLAGOMEZ DO, JEFFERSON Ot 250.02 04/22/2014 VILLAGOMEZ DO, JEFFERSON Ot 272.0 04/22/2014 VILLAGOMEZ DO, JEFFERSON Ot 401.1 04/22/2014 VILLAGOMEZ DO, JEFFERSON Ot V58.69 10/08/2014 VILLAGOMEZ DO, JEFFERSON Ot 250.02 10/08/2014 VILLAGOMEZ DO, JEFFERSON Ot 272.0 10/08/2014 VILLAGOMEZ DO, JEFFERSON Ot 401.1 10/08/2014 VILLAGOMEZ DO, JEFFERSON Ot 427.31 10/08/2014 VILLAGOMEZ DO, JEFFERSON Ot V58.69 10/08/2014 VILLAGOMEZ DO, JEFFERSON Ot V70.0 01/22/2015 Ot 272.0 01/22/2015 Ot 285.9 01/22/2015 Ot 401.1 01/22/2015 Ot 780.79 01/22/2015 Ot 790.6 01/22/2015 Ot 793.80 01/22/2015 Ot 786.09 01/22/2015 Ot 786.50 01/22/2015 Ot 786.09 01/22/2015 Ot 786.50 01/22/2015 Ot 272.4 01/22/2015 Ot 401.9 01/22/2015 Ot 786.50 01/22/2015 Ot 794.39 01/22/2015 Ot V72.63 01/22/2015 Ot V72.81 01/22/2015 Ot V74.8 01/22/2015 Ot 272.0 01/22/2015 Ot 401.1 01/22/2015 Ot 782.3 01/22/2015 Ot 783.1 01/22/2015 Ot 786.59 01/22/2015 Ot 790.29 01/22/2015 Ot 716.16 01/22/2015 Ot 717.3 01/22/2015 Ot V72.83 01/22/2015 Ot V74.8 01/22/2015 Ot 272.0 01/22/2015 Ot 401.1 01/22/2015 Ot 782.3 01/22/2015 Ot 783.1 01/22/2015 Ot 786.59 01/22/2015 Ot 790.29 01/22/2015 Ot 611.89 01/22/2015 Ot V67.9 01/22/2015 Ot 272.0 01/22/2015 Ot 401.1 01/22/2015 Ot 786.59 01/22/2015 Ot 790.29 01/22/2015 Ot 272.0 01/22/2015 Ot 401.1 01/22/2015 Ot 733.90 01/22/2015 Ot 790.29 01/22/2015 Ot 250.02 01/22/2015 Ot 272.0 01/22/2015 Ot 401.1 01/22/2015 Ot V76.12 01/22/2015 Ot 250.00 01/22/2015 Ot 272.0 01/22/2015 Ot 401.1 01/22/2015 Ot 250.00 01/22/2015 Ot 272.0 01/22/2015 ABEBE QUINTANILLA AIRLINE COUNTER AGENT Ot 272.4 01/22/2015 ABEBE QUINTANILLA AIRLINE COUNTER AGENT Ot 401.9 01/22/2015 VILLAGOMEZ DO, JEFFERSON Ot 250.02 01/22/2015 VILLAGOMEZ DO, JEFFERSON Ot 300.00 01/22/2015 VILLAGOMEZ DO, JEFFERSON Ot 695.3 01/22/2015 VILLAGOMEZ DO, JEFFERSON Ot 708.9 01/22/2015 VILLAGOMEZ DO, JEFFERSON Ot 719.46 01/22/2015 VILLAGOMEZ DO, JEFFERSON Ot 722.10 01/22/2015 VILLAGOMEZ DO, JEFFERSON Ot 786.59 01/22/2015 VILLAGOMEZ DO, JEFFERSON Ot 793.81 01/22/2015 VILLAGOMEZ DO, JEFFERSON Ot V72.62 01/22/2015 VILLAGOMEZ DO, JEFFERSON Ot V76.12 01/22/2015 ABEBE QUINTANILLA AIRLINE COUNTER AGENT Ot 397.0 01/22/2015 ABEBE QUINTANILLA AIRLINE COUNTER AGENT Ot 401.9 01/22/2015 ABEBE QUINTANILLA AIRLINE COUNTER AGENT Ot 424.0 01/22/2015 ABEBE QUINTANILLA AIRLINE COUNTER AGENT Ot 428.30 01/22/2015 ABEBE QUINTANILLA AIRLINE COUNTER AGENT Ot 429.3 01/22/2015 VILLAGOMEZ DO, JEFFERSON Ot 250.02 01/22/2015 VILLAGOMEZ DO, JEFFERSON Ot 272.0 01/22/2015 VILLAGOMEZ DO, JEFFERSON Ot 300.00 01/22/2015 VILLAGOMEZ DO, JEFFERSON Ot 401.1 01/22/2015 VILLAGOMEZ DO, JEFFERSON Ot 695.3 01/22/2015 VILLAGOMEZ DO, JEFFERSON Ot 782.3 01/22/2015 VILLAGOMEZ DO, JEFFERSON Ot 783.1 01/22/2015 VILLAGOMEZ DO, JEFFERSON Ot 250.02 01/22/2015 VILLAGOMEZ DO, JEFFERSON Ot 268.9 01/22/2015 VILALGOMEZ DO, JEFFERSON Ot 272.0 01/22/2015 VILLAGOMEZ DO, JEFFERSON Ot 300.00 01/22/2015 VILLAGOMEZ DO, JEFFERSON Ot 401.1 01/22/2015 VILLAGOMEZ DO, JEFFERSON Ot 695.3 01/22/2015 VILLAGOMEZ DO, JEFFERSON Ot 782.3 01/22/2015 VILLAGOMEZ DO, JEFFERSON Ot 783.1 01/22/2015 VILLAGOMEZ DO, JEFFERSON Ot 250.02 01/22/2015 VILLAGOMEZ DO, JEFFERSON Ot 272.0 01/22/2015 VILLAGOMEZ DO, JEFFERSON Ot 401.1 01/22/2015 VILLAGOMEZ DO, JEFFERSON Ot 783.1 01/22/2015 VILLAGOMEZ DO, JEFFERSON Ot V58.69 01/22/2015 VILLAGOMEZ DO, JEFFERSON Ot 250.02 01/22/2015 VILLAGOMEZ DO, JEFFERSON Ot 268.9 01/22/2015 VILLAGOMEZ DO, JEFFERSON Ot 272.0 01/22/2015 VILLAGOMEZ DO, JEFFERSON Ot 401.1 01/22/2015 VILLAGOMEZ DO, JEFFERSON Ot V58.69 01/22/2015 VILLAGOMEZ DO, JEFFERSON Ot V76.12 01/22/2015 VILLAGOMEZ DO, JEFFERSON Ot 250.02 01/22/2015 VILLAGOMEZ DO, JEFFERSON Ot 272.0 01/22/2015 VILLAGOMEZ DO, JEFFERSON Ot 401.1 01/22/2015 VILLAGOMEZ DO, JEFFERSON Ot V58.69 01/22/2015 HOSEA CHAVEZ, TL Mary Ot 250.00 01/22/2015 HOSEA CHAVEZ, TL Mary Ot 272.4 01/22/2015 HOSEA CHAVEZ, TL Mary Ot 401.9 01/22/2015 HOSEA CHAVEZ, TL Mary Ot 414.00 01/22/2015 VILLAGOMEZ DO, JEFFERSON Ot 250.02 01/22/2015 VILLAGOMEZ DO, JEFFERSON Ot 272.0 01/22/2015 VILLAGOMEZ DO, JEFFERSON Ot 401.1 01/22/2015 VILLAGOMEZ DO, JEFFERSON Ot 427.31 01/22/2015 VILLAGOMEZ DO, JEFFERSON Ot V58.69 01/22/2015 VILLAGOMEZ DO, JEFFERSON Ot V70.0 02/11/2015 VILLAGOMEZ DO, JEFFERSON Ot Z12.31 03/24/2015 Ot E11.65 03/24/2015 Ot E55.9 03/24/2015 Ot E78.0 03/24/2015 Ot E78.1 03/24/2015 Ot Z00.00 04/15/2015 TRISH COLLINS Ot E78.5 04/15/2015 TRISH COLLINS Ot I10 04/15/2015 TRISH COLLINS Ot I25.10 04/15/2015 TRISH COLLINS Ot I48.91 04/22/2015 СВЕТЛАНА ROMAN MD Ot S05.12XA CONTUSION OF EYEBALL AND ORBITAL TISSUES 04/22/2015 СВЕТЛАНА ROMAN MD Ot S80.02XA CONTUSION OF LEFT KNEE, INITIAL ENCOUNTE 04/22/2015 СВЕТЛАНА ROMAN MD Ot W01.0XXA FALL SAME LEV FROM SLIP/TRIP W/O STRIKE 04/22/2015 СВЕТЛАНА ROMAN MD Ot Y92.[address] [facility] 04/22/2015 СВЕТЛАНА ROMAN MD Ot Y99.8 OTHER EXTERNAL CAUSE STATUS 04/28/2015 TRISH COLLINS Ot E78.5 04/28/2015 TRISH COLLINS Ot I10 04/28/2015 TRISH COLLINS Ot I25.10 04/28/2015 TRISH COLLINS Ot I48.91 03/17/2016 Ot 272.0 PURE HYPERCHOLESTEROLEM 03/17/2016 Ot 401.1 BENIGN HYPERTENSION 03/17/2016 Ot 786.59 CHEST PAIN NEC 03/17/2016 Ot 790.29 OTHER ABNORMAL GLUCOSE 03/17/2016 Ot 272.0 PURE HYPERCHOLESTEROLEM 03/17/2016 Ot 401.1 BENIGN HYPERTENSION 03/17/2016 Ot 733.90 BONE CARTILAGE DIS NOS 03/17/2016 Ot 790.29 OTHER ABNORMAL GLUCOSE 03/17/2016 Ot 250.02 DIAB JESUS WO COMPL, TYPE II OR UNSPEC TY 03/17/2016 Ot 272.0 PURE HYPERCHOLESTEROLEM 03/17/2016 Ot 401.1 BENIGN HYPERTENSION 03/17/2016 Ot V76.12 OTH SCREEN MAMMO-MALIGN NEOPLASM OF [place] 03/17/2016 Ot 250.00 DIAB JESUS WO COMPL, TYPE II OR UNSPEC TY 03/17/2016 Ot 272.0 PURE HYPERCHOLESTEROLEM 03/17/2016 Ot 401.1 BENIGN HYPERTENSION 03/17/2016 Ot 250.00 DIAB JESUS WO COMPL, TYPE II OR UNSPEC TY 03/17/2016 Ot 272.0 PURE HYPERCHOLESTEROLEM 03/17/2016 QUINTANILLAABEBE COOL AIRLINE COUNTER AGENT Ot 272.4 HYPERLIPIDEMIA NEC/NOS 03/17/2016 QUINTANILLAABEBE COOL AIRLINE COUNTER AGENT Ot 401.9 HYPERTENSION NOS 03/17/2016 DAHLIA MARES JEFFERSON Ot 250.02 DIAB JESUS WO COMPL, TYPE II OR UNSPEC TY 03/17/2016 EFRA VILLAGOMEZ DOI Ot 300.00 ANXIETY STATE NOS 03/17/2016 DAHLIA MARES JEFFERSON Ot 695.3 ROSACEA 03/17/2016 DAHLIA MARES JEFFERSON Ot 708.9 URTICARIA NOS 03/17/2016 DAHLIA MARES JEFFERSON Ot 719.46 JOINT PAIN-L/LEG 03/17/2016 DAHLIA MARES JEFFERSON Ot 722.10 LUMBAR DISC DISPLACEMENT 03/17/2016 DAHLIA MARES JEFFERSON Ot 786.59 CHEST PAIN NEC 03/17/2016 DAHLIA MARES JEFFERSON Ot 793.81 MAMMOGRAPHIC MICROCLACIFICATION 03/17/2016 JEFFERSON VILLAGOMEZ DO Ot V72.62 LAB EXAM ORDERED PART OF A ROUTINE GE 03/17/2016 EFRA VILLAGOMEZ DOI Ot V76.12 OTH SCREEN MAMMO-MALIGN NEOPLASM OF [place] 03/17/2016 QUINTANILLAABEBE COOL AIRLINE COUNTER AGENT Ot 397.0 TRICUSPID VALVE DISEASE 03/17/2016 QUINTANILLAABEBE COOL AIRLINE COUNTER AGENT Ot 401.9 HYPERTENSION NOS 03/17/2016 ABEBE QUINTANILLA AIRLINE COUNTER AGENT Ot 424.0 MITRAL VALVE DISORDER 03/17/2016 QUINTANILLAABEBE COOL AIRLINE COUNTER AGENT Ot 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 03/17/2016 QUINTANILLAABEBE COOL AIRLINE COUNTER AGENT Ot 429.3 CARDIOMEGALY 03/17/2016 VILLAGOMEZ DO, JEFFERSON Ot 250.02 DIAB JESUS WO COMPL, TYPE II OR UNSPEC TY 03/17/2016 VILLAGOMEZ DO, JEFFERSON Ot 272.0 PURE HYPERCHOLESTEROLEM 03/17/2016 VILLAGOMEZ DO, JEFFERSON Ot 300.00 ANXIETY STATE NOS 03/17/2016 VILLAGOMEZ DO, JEFFERSON Ot 401.1 BENIGN HYPERTENSION 03/17/2016 VILLAGOMEZ DO, JEFFERSON Ot 695.3 ROSACEA 03/17/2016 VILLAGOMEZ DO, JEFFERSON Ot 782.3 EDEMA 03/17/2016 VILLAGOMEZ DO, JEFFERSON Ot 783.1 ABNORMAL WEIGHT GAIN 03/17/2016 VILLAGOMEZ DO, JEFFERSON Ot 250.02 DIAB JESUS WO COMPL, TYPE II OR UNSPEC TY 03/17/2016 VILLAGOMEZ DO, JEFFERSON Ot 268.9 VITAMIN D DEFICIENCY NOS 03/17/2016 VILLAGOMEZ DO, JEFFERSON Ot 272.0 PURE HYPERCHOLESTEROLEM 03/17/2016 VILLAGOMEZ DO, JEFFERSON Ot 300.00 ANXIETY STATE NOS 03/17/2016 VILLAGOMEZ DO, JEFFERSON Ot 401.1 BENIGN HYPERTENSION 03/17/2016 VILLAGOMEZ DO, JEFFERSON Ot 695.3 ROSACEA 03/17/2016 VILLAGOMEZ DO, JEFFERSON Ot 782.3 EDEMA 03/17/2016 VILLAGOMEZ DO, JEFFERSON Ot 783.1 ABNORMAL WEIGHT GAIN 03/17/2016 VILLAGOMEZ DO, JEFFERSON Ot 250.02 DIAB JESUS WO COMPL, TYPE II OR UNSPEC TY 03/17/2016 VILLAGOMEZ DO, JEFFERSON Ot 272.0 PURE HYPERCHOLESTEROLEM 03/17/2016 VILLAGOMEZ DO, JEFFERSON Ot 401.1 BENIGN HYPERTENSION 03/17/2016 VILLAGOMEZ DO, JEFFERSON Ot 783.1 ABNORMAL WEIGHT GAIN 03/17/2016 VILLAGOMEZ DO, JEFFERSON Ot V58.69 OTH MED,LT,CURRENT USE 03/17/2016 VILLAGOMEZ DO, JEFFERSON Ot 250.02 DIAB JESUS WO COMPL, TYPE II OR UNSPEC TY 03/17/2016 VILLAGOMEZ DO, JEFFERSON Ot 268.9 VITAMIN D DEFICIENCY NOS 03/17/2016 VILLAGOMEZ DO, JEFFERSON Ot 272.0 PURE HYPERCHOLESTEROLEM 03/17/2016 VILLAGOMEZ DO, JEFFERSON Ot 401.1 BENIGN HYPERTENSION 03/17/2016 VILLAGOMEZ DO, JEFFERSON Ot V58.69 OTH MED,LT,CURRENT USE 03/17/2016 VILLAGOMEZ DO, JEFFERSON Ot V76.12 OTH SCREEN MAMMO-MALIGN NEOPLASM OF [place] 03/17/2016 DAHLIA MARES JEFFERSON Ot 250.02 DIAB JESUS WO COMPL, TYPE II OR UNSPEC TY 03/17/2016 DAHLIA MARES JEFFERSON Ot 272.0 PURE HYPERCHOLESTEROLEM 03/17/2016 DAHLIA DO JEFFERSON Ot 401.1 BENIGN HYPERTENSION 03/17/2016 DAHILA MARES JEFFERSON Ot V58.69 OTH MED,LT,CURRENT USE 03/17/2016 TL JC MD Ot 250.00 DIAB JESUS WO COMPL, TYPE II OR UNSPEC TY 03/17/2016 TL JC MD Ot 272.4 HYPERLIPIDEMIA NEC/NOS 03/17/2016 TL JC MD Ot 401.9 HYPERTENSION NOS 03/17/2016 TL JC MD Ot 414.00 CORON ATHEROSCLER NOS TYPE VESSEL, NATIV 03/17/2016 TRISH COLLINS Ot E78.5 HYPERLIPIDEMIA, UNSPECIFIED 03/17/2016 TRISH COLLINS Ot I10 ESSENTIAL (PRIMARY) HYPERTENSION 03/17/2016 TRISH COLLINS Ot I25.10 ATHSCL HEART DISEASE OF [place] CORONARY 03/17/2016 TRISH COLLINS Ot I48.91 UNSPECIFIED ATRIAL FIBRILLATION 03/17/2016 JEFFERSON VILLAGOMEZ DO Ot 250.02 DIAB JESUS WO COMPL, TYPE II OR UNSPEC TY 03/17/2016 JEFFERSON VILLAGOMEZ DO Ot 272.0 PURE HYPERCHOLESTEROLEM 03/17/2016 JEFFERSON VILLAGOMEZ DO Ot 401.1 BENIGN HYPERTENSION 03/17/2016 JEFFERSON VILLAGOMEZ DO Ot 427.31 ATRIAL FIBRILLATION 03/17/2016 JEFFERSON VILLAGOMEZ DO Ot V58.69 OTH MED,LT,CURRENT USE 03/17/2016 EFRA VILLAGOMEZ DOI Ot V70.0 ROUTINE MEDICAL EXAM 03/17/2016 JEFFERSON VILLAGOMEZ DO Ot Z12.31 ENCNTR SCREEN MAMMOGRAM FOR MALIGNANT NE 03/17/2016 Ot E11.65 TYPE 2 DIABETES MELLITUS WITH HYPERGLYCE 03/17/2016 Ot E55.9 VITAMIN D DEFICIENCY, UNSPECIFIED 03/17/2016 Ot E78.0 PURE HYPERCHOLESTEROLEMIA 03/17/2016 Ot E78.1 PURE HYPERGLYCERIDEMIA 03/17/2016 Ot Z00.00 ENCNTR FOR GENERAL ADULT MEDICAL EXAM W/ 03/17/2016 DAHLIA MARES JEFFERSON Ot 250.02 DIAB JESUS WO COMPL, TYPE II OR UNSPEC TY 03/17/2016 DAHLIA MARES JEFFERSON Ot 272.0 PURE HYPERCHOLESTEROLEM 03/17/2016 DAHLIA DO JEFFERSON Ot 401.1 BENIGN HYPERTENSION 03/17/2016 DAHLIA MARES JEFFERSON Ot V58.69 OT MED,LT,CURRENT USE 03/17/2016 TL JC MD Ot 250.00 DIAB JESUS WO COMPL, TYPE II OR UNSPEC TY 03/17/2016 TL JC MD Ot 272.4 HYPERLIPIDEMIA NEC/NOS 03/17/2016 TL JC MD Ot 401.9 HYPERTENSION NOS 03/17/2016 TL JC MD Ot 414.00 CORON ATHEROSCLER NOS TYPE VESSEL, NATIV 03/17/2016 TRISH COLLINS Ot E78.5 HYPERLIPIDEMIA, UNSPECIFIED 03/17/2016 TRISH COLLINS Ot I10 ESSENTIAL (PRIMARY) HYPERTENSION 03/17/2016 TRISH COLLINS Ot I25.10 ATHSCL HEART DISEASE OF [place] CORONARY 03/17/2016 TRISH COLLINS Ot I48.91 UNSPECIFIED ATRIAL FIBRILLATION 03/17/2016 JEFFERSON VILLAGOMEZ DO Ot 250.02 DIAB JESUS WO COMPL, TYPE II OR UNSPEC TY 03/17/2016 EFRA VILLAGOMEZ DOI Ot 272.0 PURE HYPERCHOLESTEROLEM 03/17/2016 DAHLIA MARES JEFFERSON Ot 401.1 BENIGN HYPERTENSION 03/17/2016 JEFFERSON VILLAGOMEZ DO Ot 427.31 ATRIAL FIBRILLATION 03/17/2016 JEFFERSON VILLAGOMEZ DO Ot V58.69 OT MED,LT,CURRENT USE 03/17/2016 EFRA VILLAGOMEZ DOI Ot V70.0 ROUTINE MEDICAL EXAM 03/17/2016 JEFFERSON VILLAGOMEZ DO Ot Z12.31 ENCNTR SCREEN MAMMOGRAM FOR MALIGNANT NE 03/17/2016 Ot E11.65 TYPE 2 DIABETES MELLITUS WITH HYPERGLYCE 03/17/2016 Ot E55.9 VITAMIN D DEFICIENCY, UNSPECIFIED 03/17/2016 Ot E78.0 PURE HYPERCHOLESTEROLEMIA 03/17/2016 Ot E78.1 PURE HYPERGLYCERIDEMIA 03/17/2016 Ot Z00.00 ENCNTR FOR GENERAL ADULT MEDICAL EXAM W/ 03/17/2016 СВЕТЛАНА ROMAN MD Ot E11.9 TYPE 2 DIABETES MELLITUS WITHOUT COMPLIC 03/17/2016 СВЕТЛАНА ROMAN MD Ot I10 ESSENTIAL (PRIMARY) HYPERTENSION 03/17/2016 СВЕТЛАНА ROMAN MD Ot S40.011A CONTUSION OF RIGHT SHOULDER, INITIAL ENC 03/17/2016 СВЕТЛАНА ROMAN MD Ot S49.91XA UNSP INJURY OF RIGHT SHOULDER AND UPPER 03/17/2016 СВЕТЛАНА ROMAN MD Ot W07.XXXA FALL FROM CHAIR, INITIAL ENCOUNTER 03/17/2016 СВЕТЛАНА ROMAN MD Ot Y92.[address] 03/17/2016 СВЕТЛАНА ROMAN MD Ot Y93.89 ACTIVITY, OTHER SPECIFIED 03/17/2016 СВЕТЛАНА ROMAN MD Ot Y99.8 OTHER EXTERNAL CAUSE STATUS 03/17/2016 СВЕТЛАНА ROMAN MD Ot Z79.82 ASSISTED (CURRENT) USE OF ASPIRIN 03/17/2016 СВЕТЛАНА ROMAN MD Ot Z79.84 INDUSTRIAL ROOFER (CURRENT) USE OF ORAL HYPOGLYC 03/17/2016 СВЕТЛАНА ROMAN MD Ot Z79.899 OTHER ASSISTED (CURRENT) DRUG THERAPY Procedures Results Encounters ACCT No. Visit Date/Time Discharge Status Pt. Type Provider Facility Loc./Unit Complaint [id number] 10/21/2016 21:26:00 2016 23:06:00 DIS Emergency VIJAY OSUNA DO [facility] ER FALL/RIGHT HIP PAIN [id number] 03/17/2016 09:34:00 2015 11:39:00 DIS Emergency СВЕТЛАНА ROMAN MD [facility] ER FALL/RT SHOULDER PAIN [id number] 04/22/2015 08:34:00 2015 10:29:00 DIS Emergency СВЕТЛАНА ROMAN MD [facility] ER FALL/HEAD INJURY [id number] 03/04/2015 12:56:00 2014 23:59:59 CLS Outpatient TRISH COLLINS [facility] CARD AFIB,CAD,HTN,HLP [id number] 01/22/2015 10:17:00 2014 23:59:59 CLS Outpatient VILLAGOMEZ DO, JEFFERSON [facility] RAD SCREENING [id number] 09/08/2014 08:17:00 2014 23:59:59 CLS Outpatient VILLAGOMEZ DO, JEFFERSON [facility] LAB A-FIB,NIDDM,HTN,HYPERCHOLESTEROLEMIA [id number] 04/02/2014 09:00:00 2013 23:59:59 CLS Preadmit TL JC MD [facility] CARD CAD,HTN, [id number] 04/01/2014 07:41:00 2013 23:59:59 CLS Outpatient VILLAGOMEZ DO, JEFFERSON [facility] LAB DM,HTN,HLP [id number] 01/01/2014 08:51:00 2013 00:01:00 DIS Outpatient TL JC MD [facility] CARD CAD,HTN, [id number] 12/09/2013 08:19:00 2013 23:59:59 CLS Outpatient VILLAGOMEZ DO, JEFFERSON [facility] RAD SCREENING,MED MONITORING,VIT D DEF,WT GAIN,EDEMA,H [id number] 06/10/2013 08:35:00 2013 23:59:59 CLS Outpatient VILLAGOMEZ DO, JEFFERSON [facility] LAB DIABETES ,HTN,EDEMA,MED WT GAIN [id number] 12/11/2012 09:16:00 2012 23:59:59 CLS Outpatient VILLAGOMEZ DO, JEFFERSON [facility] LAB HYPERTENSION,HYPERCHOLESTEROL,EDEMA, OSTEOARTHRITIS [id number] 12/10/2012 16:23:00 2012 23:59:59 CLS Outpatient VILLAGOMEZ DO, JEFFERSON [facility] LAB DIABETES MELLITIS NON INSULIN DEPEND, ANXIETY [id number] 08/30/2012 09:32:00 2012 23:59:59 CLS Outpatient ABEBE QUINTANILLA [facility] CARD LVF, HTN [id number] 08/21/2012 11:22:00 2012 23:59:59 CLS Outpatient EFRA VILLAGOMEZ DOI [facility] RAD SCREENING [id number] 08/09/2012 09:25:00 2012 23:59:59 CLS Outpatient DAHLIA DO JEFFERSON [facility] LAB HEALTH SCREENING,MEDICATION MONITORING [id number] 08/09/2012 09:17:00 2012 23:59:59 CLS Outpatient DWIGHTFANYEY Teofilo GERONIMO [facility] LAB HYPERTENSION [id number] 03/04/2015 08:31:00 Document Registration [id number] 01/22/2015 10:18:00 Document Registration [id number] 01/22/2015 10:18:00 Document Registration [id number] 01/22/2015 10:18:00 Document Registration [id number] 01/22/2015 10:18:00 Document Registration [id number] 01/22/2015 10:18:00 Document Registration [id number] 01/22/2015 10:18:00 Document Registration [id number] 01/22/2015 10:18:00 Document Registration [id number] 07/07/2011 08:52:00 Document Registration [id number] 02/27/2011 08:22:00 Document Registration [id number] 10/21/2010 09:14:00 Document Registration [id number] 05/27/2010 08:55:00 Document Registration [id number] 05/03/2010 13:00:00 Document Registration [id number] 02/14/2010 05:46:00 Document Registration [id number] 02/10/2010 09:32:00 Document Registration [id number] 01/18/2010 09:47:00 Document Registration [id number] 09/22/2009 05:35:00 Document Registration [id number] 09/21/2009 07:51:00 Document Registration [id number] 09/06/2009 10:00:00 Document Registration [id number] 08/31/2009 09:20:00 Document Registration
== END 2016-10-21 23:06 | disposition home or self-care (01) ==
LOC: EDUNIT# 21:25 → ER 21:26
DX: M19.90 Unspecified osteoarthritis, unspecified site; E11.9 Type 2 diabetes mellitus without complications; S70.01XA Contusion of right hip, initial encounter; E78.00 Pure hypercholesterolemia, unspecified; Z79.82 Long term (current) use of aspirin; Z90.49 Acquired absence of other specified parts of digestive tract; Z79.84 Long term (current) use of oral hypoglycemic drugs; S91.311A Laceration without foreign body, right foot, initial encounter; W18.30XA Fall on same level, unspecified, initial encounter; F32.9 Major depressive disorder, single episode, unspecified; I10 Essential (primary) hypertension
CPT/HCPCS: 72170; 73502; 99283

== ENCOUNTER 2017-01-05 11:43 | Inpatient (IN) | payer MEDICARE, OTHER ==
[~2017-01-05] VITALS: Ht 162.6 cm; Wt 142.2 kg
[2017-01-05] VITALS (7 sets, daily range): BP systolic 90–134; BP diastolic 57–95
[~2017-01-05 11:43] MED LIST changes: +AMLO5TAB2 PO; +APIX5TAB PO; +ATEN50TA; +DULO60CA58; +HYDR-3816 PO; +LOSA50TA36; +MUPI15CR TP
[2017-01-05] MEDS ORDERED: ONDANSETRON 4 MG/2 ML (SDV) Z0FRAN IVP PRN (12:00)
[2017-01-05] MEDS ORDERED: fentaNYL INJECTION 100 MCG/2 ML AMP IVP PRN (12:00)
--- OUTSIDE RECORDS SUMMARY | 2017-01-05 13:15 | XMS REPORT | Continuity of Care Document ---
Author Author [facility] Organization [facility] Address Unknown Phone Unavailable Allergies Active Description Code Type Severity Reaction Onset Reported/Identified Relationship to Patient Clinical Status Yes No Known Drug Allergies [id number] Drug Allergy Unknown N/ A 02/14/2010 Medications [...] 04/04/2014 JEFFERSON VILLAGOMEZ DO Ot 272.0 04/04/2014 VILLAGOMEZ DO, JEFFERSON Ot 401.1 04/04/2014 VILLAGOMEZ DO, JEFFERSON Ot [...] 250.00 01/22/2015 Ot 272.0 01/22/2015 ABEBE QUINTANILLA RUSSIAN LANGUAGE INSTRUCTOR Ot 272.4 01/22/2015 ABEBE QUINTANILLA RUSSIAN LANGUAGE INSTRUCTOR Ot 401.9 01/22/2015 VILLAGOMEZ DO, JEFFERSON Ot [...] DO, JEFFERSON Ot V76.12 01/22/2015 ABEBE QUINTANILLA RUSSIAN LANGUAGE INSTRUCTOR Ot 397.0 01/22/2015 ABEBE QUINTANILLA RUSSIAN LANGUAGE INSTRUCTOR Ot 401.9 01/22/2015 ABEBE QUINTANILLA RUSSIAN LANGUAGE INSTRUCTOR Ot 424.0 01/22/2015 ABEBE QUINTANILLA RUSSIAN LANGUAGE INSTRUCTOR Ot 428.30 01/22/2015 ABEBE QUINTANILLA RUSSIAN LANGUAGE INSTRUCTOR Ot 429.3 01/22/2015 VILLAGOMEZ DO, JEFFERSON Ot [...] HOSEA CHAVEZ, TL Mary Ot 414.00 01/22/2015 VILLAGOEMZ DO, JEFFERSON Ot 250.02 01/22/2015 VILLAGOMEZ DO, [...] E78.5 04/15/2015 TRISH COLLINS Ot I10 04/15/2015 TIRSH COLLINS Ot I25.10 04/15/2015 TRISH COLLINS Ot I48.91 04/22/2015 СВЕТЛАНА ROMAN MD Ot S05.12XA CONTUSION OF EYEBALL AND ORBITAL TISSUES 04/22/2015 СВЕТЛАНА ROMAN MD Ot S80.02XA CONTUSION OF LEFT KNEE, INITIAL ENCOUNTE 04/22/2015 СВЕТЛАНА ROMAN MD Ot W01.0XXA FALL SAME LEV FROM SLIP/TRIP W/O STRIKE 04/22/2015 СВЕТЛАНА ROMAN MD Ot Y92.[address] [facility] 04/22/2015 СВЕТЛАНА ROMAN MD [...] Ot 272.0 PURE HYPERCHOLESTEROLEM 03/17/2016 QUINTANILLAABEBE COOL RUSSIAN LANGUAGE INSTRUCTOR Ot 272.4 HYPERLIPIDEMIA NEC/NOS 03/17/2016 QUINTANILLAABEBE COOL RUSSIAN LANGUAGE INSTRUCTOR Ot 401.9 HYPERTENSION NOS 03/17/2016 DAHLIA MARES JEFFERSON Ot 250.02 DIAB JESUS WO COMPL, TYPE II OR UNSPEC TY 03/17/2016 DAHLIA MARES JEFFERSON Ot 300.00 ANXIETY STATE NOS 03/17/2016 DAHLIA [...] MAMMO-MALIGN NEOPLASM OF [place] 03/17/2016 QUINTANILLAABEBE COOL RUSSIAN LANGUAGE INSTRUCTOR Ot 397.0 TRICUSPID VALVE DISEASE 03/17/2016 QUINTANILLAABEBE COOL RUSSIAN LANGUAGE INSTRUCTOR Ot 401.9 HYPERTENSION NOS 03/17/2016 ABEBE QUINTANILLA RUSSIAN LANGUAGE INSTRUCTOR Ot 424.0 MITRAL VALVE DISORDER 03/17/2016 QUINTANILLAABEBE COOL RUSSIAN LANGUAGE INSTRUCTOR Ot 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 03/17/2016 QUINTANILLAABEBE COOL RUSSIAN LANGUAGE INSTRUCTOR Ot 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.3 CARDIOMEGALY 03/17/2016 VILLAGOMEZ DO, JEFFERSON [...] HYPERTENSION 03/17/2016 DAHLIA MARES JEFFERSON Ot V58.69 OTH MED,LT,CURRENT USE [...] COLLINS Ot I25.10 ATHSCL HEART DISEASE OF [place] CORONARY 03/17/2016 TRISH COLLINS Ot I48.91 UNSPECIFIED [...] FOR GENERAL ADULT MEDICAL EXAM W/ 03/17/2016 EFRA VILLAGOMEZ DOI Ot 250.02 DIAB JESUS WO COMPL, TYPE II OR UNSPEC TY 03/17/2016 DAHLIA MARES JEFFERSON Ot 272.0 PURE HYPERCHOLESTEROLEM 03/17/2016 DAHLIA MARES JEFFERSON Ot 401.1 BENIGN HYPERTENSION 03/17/2016 EFRA VILLAGOMEZ DOI Ot V58.69 OT MED,LT,CURRENT USE 03/17/2016 TL JC MD Ot 250.00 DIAB JESUS WO COMPL, TYPE II OR UNSPEC TY 03/17/2016 LT JC MD Ot 272.4 HYPERLIPIDEMIA NEC/NOS 03/17/2016 TL JC MD Ot 401.9 HYPERTENSION NOS 03/17/2016 TL JC MD Ot 414.00 CORON ATHEROSCLER NOS TYPE VESSEL, NATIV 03/17/2016 TRISH COLLINS Ot E78.5 HYPERLIPIDEMIA, UNSPECIFIED 03/17/2016 TRISH COLLINS Ot I10 ESSENTIAL (PRIMARY) HYPERTENSION 03/17/2016 TRISH COLLINS Ot I25.10 ATHSCL HEART DISEASE OF [place] CORONARY 03/17/2016 TRISH COLLINS Ot I48.91 UNSPECIFIED ATRIAL FIBRILLATION 03/17/2016 JEFFERSON VILLAGOMEZ DO Ot 250.02 DIAB JESUS WO COMPL, TYPE II OR UNSPEC TY 03/17/2016 JEFFERSON VILLAGOMEZ DO Ot 272.0 PURE HYPERCHOLESTEROLEM 03/17/2016 EFRA VILLAGOMEZ DOI Ot 401.1 BENIGN HYPERTENSION 03/17/2016 JEFFERSON VILLAGOMEZ DO Ot 427.31 ATRIAL FIBRILLATION 03/17/2016 JEFFERSON VILLAGOMEZ DO Ot V58.69 OT MED,LT,CURRENT USE 03/17/2016 JEFFERSON VILLAGOMEZ DO Ot V70.0 ROUTINE MEDICAL EXAM 03/17/2016 JEFFERSON VILLAGOMEZ DO Ot Z12.31 ENCNTR SCREEN MAMMOGRAM FOR MALIGNANT NE 03/17/2016 Ot E11.65 TYPE 2 DIABETES MELLITUS WITH HYPERGLYCE 03/17/2016 Ot E55.9 VITAMIN D DEFICIENCY, UNSPECIFIED 03/17/2016 Ot E78.0 PURE HYPERCHOLESTEROLEMIA 03/17/2016 Ot E78.1 PURE HYPERGLYCERIDEMIA 03/17/2016 Ot Z00.00 ENCNTR FOR GENERAL ADULT MEDICAL EXAM W/ 03/17/2016 СВЕТЛАНА ROMAN MD, Ot E11.9 TYPE 2 DIABETES MELLITUS WITHOUT COMPLIC 03/17/2016 СВЕТЛАНА ROMAN MD, Ot I10 ESSENTIAL (PRIMARY) HYPERTENSION 03/17/2016 СВЕТЛАНА ROMAN MD, Ot S40.011A CONTUSION OF RIGHT SHOULDER, INITIAL ENC 03/17/2016 СВЕТЛАНА ROMAN MD, Ot S49.91XA UNSP INJURY OF RIGHT SHOULDER AND UPPER 03/17/2016 СВЕТЛАНА ROMAN MD, Ot W07.XXXA FALL FROM CHAIR, INITIAL ENCOUNTER 03/17/2016 СВЕТЛАНА ROMAN MD, Ot Y92.[address] 03/17/2016 СВЕТЛАНА ROMAN MD, Ot Y93.89 ACTIVITY, OTHER SPECIFIED 03/17/2016 СВЕТЛАНА ROMAN MD, Ot Y99.8 OTHER EXTERNAL CAUSE STATUS 03/17/2016 СВЕТЛАНА ROMAN MD, Ot Z79.82 USP (CURRENT) USE OF ASPIRIN 03/17/2016 СВЕТЛАНА ROMAN MD, Ot Z79.84 USP (CURRENT) USE OF ORAL HYPOGLYC 03/17/2016 СВЕТЛАНА ROMAN MD, Ot Z79.899 OTHER USP (CURRENT) DRUG THERAPY 10/21/2016 VIJAY OSUNA DO, Ot E11.9 TYPE 2 DIABETES MELLITUS WITHOUT COMPLIC 10/21/2016 VIJAY OSUNA DO, Ot E78.00 PURE HYPERCHOLESTEROLEMIA, UNSPECIFIED 10/21/2016 VIJAY OSUNA DO, Ot F32.9 MAJOR DEPRESSIVE DISORDER, SINGLE EPISOD 10/21/2016 VIJAY OSUNA DO, Ot I10 ESSENTIAL (PRIMARY) HYPERTENSION 10/21/2016 VIJAY OSUNA DO, Ot M19.90 UNSPECIFIED OSTEOARTHRITIS, UNSPECIFIED 10/21/2016 VIJAY OSUNA DO, Ot M25.551 PAIN IN RIGHT HIP 10/21/2016 VIJAY OSUNA DO, Ot S70.01XA CONTUSION OF RIGHT HIP, INITIAL ENCOUNTE 10/21/2016 VIJAY OSUNA DO, Ot S91.311A LACERATION WITHOUT FOREIGN BODY, RIGHT F 10/21/2016 VIJAY OSUNA DO, Ot W18.30XA FALL ON SAME LEVEL, UNSPECIFIED, INITIAL 10/21/2016 VIJAY OSUNA DO, Ot Z79.82 USP (CURRENT) USE OF ASPIRIN 10/21/2016 VIJAY OSUNA DO Ot Z79.84 SET UP MECHANIC STAMPING MACHINES (CURRENT) USE OF ORAL HYPOGLYC 10/21/2016 VIJAY OSUNA DO Ot Z90.49 ACQUIRED ABSENCE OF OTHER SPECIFIED PART 10/22/2016 EFRA VILLAGOMEZ DOI Ot 250.02 DIAB JESUS WO COMPL, TYPE II OR UNSPEC TY 10/22/2016 DAHLIA MARES JEFFERSON Ot 272.0 PURE HYPERCHOLESTEROLEM 10/22/2016 EFRA VILLAGOMEZ DOI Ot 401.1 BENIGN HYPERTENSION 10/22/2016 JEFFERSON VILLAGOMEZ DO Ot V58.69 OT MED,LT,CURRENT USE 10/22/2016 TL JC MD Ot 250.00 DIAB JESUS WO COMPL, TYPE II OR UNSPEC TY 10/22/2016 TL JC MD Ot 272.4 HYPERLIPIDEMIA NEC/NOS 10/22/2016 TL JC MD Ot 401.9 HYPERTENSION NOS 10/22/2016 TL JC MD Ot 414.00 CORON ATHEROSCLER NOS TYPE VESSEL, NATIV 10/22/2016 TRISH COLLINS Ot E78.5 HYPERLIPIDEMIA, UNSPECIFIED 10/22/2016 TRISH COLLINS Ot I10 ESSENTIAL (PRIMARY) HYPERTENSION 10/22/2016 TRISH COLLINS Ot I25.10 ATHSCL HEART DISEASE OF [place] CORONARY 10/22/2016 TRISH COLLINS Ot I48.91 UNSPECIFIED ATRIAL FIBRILLATION 10/22/2016 JEFFERSON VILLAGOMEZ DO Ot 250.02 DIAB JESUS WO COMPL, TYPE II OR UNSPEC TY 10/22/2016 JEFFERSON VILLAGOMEZ DO Ot 272.0 PURE HYPERCHOLESTEROLEM 10/22/2016 DAHLIA MARES JEFFERSON Ot 401.1 BENIGN HYPERTENSION 10/22/2016 JEFFERSON VILLAGOMEZ DO Ot 427.31 ATRIAL FIBRILLATION 10/22/2016 JEFFERSON VILLAGOMEZ DO Ot V58.69 OTH MED,LT,CURRENT USE 10/22/2016 JEFFERSON VILLAGOMEZ DO Ot V70.0 ROUTINE MEDICAL EXAM 10/22/2016 JEFFERSON VILLAGOMEZ DO Ot Z12.31 ENCNTR SCREEN MAMMOGRAM FOR MALIGNANT NE 10/22/2016 Ot E11.65 TYPE 2 DIABETES MELLITUS WITH HYPERGLYCE 10/22/2016 Ot E55.9 VITAMIN D DEFICIENCY, UNSPECIFIED 10/22/2016 Ot E78.0 PURE HYPERCHOLESTEROLEMIA 10/22/2016 Ot E78.1 PURE HYPERGLYCERIDEMIA 10/22/2016 Ot Z00.00 ENCNTR FOR GENERAL ADULT MEDICAL EXAM W/ Procedures Results Encounters ACCT No. Visit Date/Time Discharge Status Pt. Type Provider Facility Loc./Unit Complaint [id number] 10/21/2016 21:26:00 2016 23:06:00 DIS Emergency VIJAY OSUNA DO [facility] ER FALL/RIGHT HIP PAIN [id number] 03/17/2016 09:34:00 2015 11:39:00 DIS Emergency СВЕТЛАНА ROMAN MD [facility] ER FALL/RT SHOULDER PAIN [id number] 04/22/2015 08:34:00 2015 10:29:00 DIS Emergency СВЕТЛАНА ROMAN MD [facility] ER FALL/HEAD INJURY [id number] 03/04/2015 12:56:00 2014 23:59:59 CLS Outpatient TRISH COLLINS Via [facility] CARD AFIB,CAD,HTN,HLP [id number] 01/22/2015 10:17:00 2014 23:59:59 CLS Outpatient JEFFERSON VILLAGOMEZ DO [facility] RAD SCREENING [id number] 09/08/2014 08:17:00 2014 23:59:59 CLS Outpatient JEFFERSON VILLAGOMEZ DO [facility] LAB A-FIB,NIDDM,HTN,HYPERCHOLESTEROLEMIA [id number] 04/02/2014 09:00:00 2013 23:59:59 CLS Preadmit TL JC MD [facility] CARD CAD,HTN, [id number] 04/01/2014 07:41:00 2013 23:59:59 CLS Outpatient JEFFERSON VILLAGOMEZ DO [facility] LAB DM,HTN,HLP [id number] 01/01/2014 08:51:00 2013 00:01:00 DIS Outpatient TL JC MD [facility] CARD CAD,HTN, [id number] 12/09/2013 08:19:00 2013 23:59:59 CLS Outpatient VILLAGOMEZ DO, JEFFERSON [facility] RAD SCREENING,MED MONITORING,VIT D DEF,WT GAIN,EDEMA,H [id number] 06/10/2013 08:35:00 2013 23:59:59 CLS Outpatient VILLAGOMEZ DO, JEFFERSON [facility] LAB DIABETES ,HTN,EDEMA,MED WT GAIN [id number] 12/11/2012 09:16:00 2012 23:59:59 CLS Outpatient VILLAGOMEZ DO, JEFFERSON [facility] LAB HYPERTENSION,HYPERCHOLESTEROL,EDEMA, OSTEOARTHRITIS [id number] 12/10/2012 16:23:00 2012 23:59:59 CLS Outpatient VILLAGOMEZ DO, JEFFERSON [facility] LAB DIABETES MELLITIS NON INSULIN DEPEND, ANXIETY [id number] 08/30/2012 09:32:00 2012 23:59:59 CLS Outpatient ABEBE QUINTANILLAP [facility] CARD LVF, HTN [id number] 08/21/2012 11:22:00 2012 23:59:59 CLS Outpatient VILLAGOMEZ DO, JEFFERSON [facility] RAD SCREENING [id number] 08/09/2012 09:25:00 2012 23:59:59 CLS Outpatient VILLAGOMEZ DO, JEFFERSON [facility] LAB HEALTH SCREENING,MEDICATION MONITORING [id number] 08/09/2012 09:17:00 2012 23:59:59 CLS Outpatient ABEBE QUINTANILLAP [facility] LAB HYPERTENSION [id number] 01/02/2017 15:24:00 LILLIAN JC MD, TL Mary [facility] CARD AFIB I48.0 [id number] 03/04/2015 08:31:00 Document Registration [id number] 01/22/2015 10:18:00 Document Registration [id number] 01/22/2015 10:18:00 Document Registration [id number] 01/22/2015 10:18:00 Document Registration [id number] 01/22/2015 10:18:00 Document Registration [id number] 01/22/2015 10:18:00 Document Registration [id number] 01/22/2015 10:18:00 Document Registration [id number] 01/22/2015 10:18:00 Document Registration [id number] 07/07/2011 08:52:00 Document Registration [id number] 02/27/2011 08:22:00 Document Registration [id number] 10/21/2010 09:14:00 Document Registration [id number] 05/27/2010 08:55:00 Document Registration [id number] 05/03/2010 13:00:00 Document Registration [id number] 02/14/2010 05:46:00 Document Registration [id number] 02/10/2010 09:32:00 Document Registration [id number] 01/18/2010 09:47:00 Document Registration [id number] 09/22/2009 05:35:00 Document Registration [id number] 09/21/2009 07:51:00 Document Registration [id number] 09/06/2009 10:00:00 Document Registration [id number] 08/31/2009 09:20:00 Document Registration
--- NOTE | 2017-01-05 13:47 | History & Physical-Hospitalist ---
HPI History of Present Illness: HPI/Chief Complaint CC: Weakness HPI: Pt is an 81yoCF with a PMH of A-fib on anticoagulation, HTN, Depression, Anxiety who presented as a direct admit from her [facility] with dark stools and presumed GI Bleed. She has been feeling very weak and tired for the past couple of days. Yesterday morning she had a black stool and has continued to have multiple black loose stools throughout yesterday and this morning. Her PCP Dr. Helton was notified and labs were ordered as outpatient and her eliquis was stopped yesterday. Her FOBT was positive her hemoglobin had dropped from her baseline of ~13 ro 8 this morning. She denies any abd pain, CP, palpitations, lightheadedness, or current SOB but has had MULLEN. She denies any history of GI bleed but does have a history of diverticulosis. Source: patient, RN/MD Date Seen 01/05/17 Time Seen by Provider: 13:15 Attending Physician Lesia Pereira MD PCP Gita Helton DO Referring Physician Date of Admission Jan 05, 2017 at 12:45 Home Medications & Allergies Home Medications Reviewed patient Home Medication Reconciliation Form Allergies Allergies Coded Allergies No Known Drug Allergies (Ysvturuxtl95/1/10) Past Jxkbqnr-Fsauau-Kjbeci Hx Patient Social History Marrital Status: Employed/Student: retired Alcohol Use: Denies Use Smoking Status: Former Smoker Former Smoker, Quit: Apr 16, 1986 Type Used: Cigarettes Recent Hopitalizations: No Seasonal Allergies Seasonal Allergies: No Surgeries Yes (BOWEL SURGERY FOR DIVERTICULITIS) Appendectomy, Bowel Surgery (partial colectomy), Orthopedic Respiratory No Cardiovascular Yes High Cholesterol, Hypertension Neurological No Reproductive System Hx Reproductive Disorders: No Sexually Transmitted Disease: No Genitourinary No Gastrointestinal Yes (DIVERTICULITIS) Abdominal Hernia, Diverticulosis Musculoskeletal Yes Arthritis Endocrine History of Endocrine Disorders: Yes (MORBID OBESITY) Endocrine Disorders: Diabetes, Non-Insulin dep HEENT History of HEENT Disorders: Yes (HAD CORRECTIVE CATARACT SURGERY) HEENT Disorders: Cataract Cancer No Psychosocial History of Psychiatric Problem: Yes Behavioral Health Disorders: Depression Integumentary History of Skin or Integumenta: No Blood Transfusions History of Blood Disorders: No Family Medical History Significant Family History: No Pertinent Family Hx Review of Systems Constitutional: No chills, No dizziness, No fever, weakness EENTM: No blurred vision, No double vision Respiratory: No cough, dyspnea on exertion, No short of breath Cardiovascular: No chest pain, No edema, No palpitations Gastrointestinal: No abdominal pain, No constipation, No diarrhea, melena, No nausea, No vomiting Genitourinary: No dysuria, No frequency, nocturia Musculoskeletal: No joint pain, No muscle pain Skin: No lesions, No rash Psychiatric/Neurological: Denies Headache, Denies Numbness, Denies Tingling Physical Exam Physical Exam Vital Signs Capillary Refill : General Appearance: No Apparent Distress, WD/WN HEENT: PERRL/EOMI, Moist Mucous Membranes Neck: Non Tender, Supple Respiratory: Lungs Clear, Normal Breath Sounds, No Accessory Muscle Use, No Respiratory Distress Cardiovascular: No Murmur, Irregularly Irregular Gastrointestinal: Normal Bowel Sounds, Non Tender, Soft Extremity: Normal Capillary Refill, Pedal Edema (bilateral, nonpitting) Neurologic/Psychiatric: Alert, Oriented x3, Other (tearful) Skin: Warm/Dry, Pallor Assessment/Plan Admission Diagnosis GI Bleed Diagnosis/Problems Diagnosis/Problems (1) GI (gastrointestinal hemorrhage) Status: Acute Assessment & Plan: Surgery consulted, appreciate recs NPO T&S ordered Await CBC, INR, and lactic acid here IVF @ 125ml/hr Attempt to obtain 2 large bore IVs, if not made to obtain more definitive access (2) Essential (primary) hypertension Status: Chronic Assessment & Plan: BP soft currently, hold antihypertensives (3) Chronic a-fib Assessment & Plan: taken off eliquis yesterday and ASA on 01/02 Rate controlled currently Cards consulted, appreciate recs (4) Prediabetes Status: Chronic Assessment & Plan: Hold Metformin while inpatient Will add SSI A if needed (5) Depression Assessment & Plan: Hold home meds while NPO (6) Prophylactic measure Assessment & Plan: SCDs only due to acute GI bleed NS at 125ml/hr NPO Clinical Quality Measures DVT/VTE Risk/Contraindication: Contraindications-Pharm: Other *list below* Other: GIB DVT/VTE Prophylaxis Comfirm.Dx Pharmacological not ordered: Other (GIB) LESIA PEREIRA MD Jan 05, 2017 13:47
[2017-01-05 14:27] LABS: BASOPHILS % (AUTO) 1 % (0-10); EOSINOPHILS # (AUTO) 0.1 10^3/uL (0.0-0.3); EOSINOPHILS % (AUTO) 2 % (0-10); LYMPHOCYTES % (AUTO) 36 % (12-44); MEAN CORPUSCULAR HEMOGLOBIN 28 PG (25-34); MEAN CORPUSCULAR HGB CONC 31 G/DL (32-36); MEAN CORPUSCULAR VOLUME 92 FL (80-99); MEAN PLATELET VOLUME 10.6 FL (7.4-10.4); MONOCYTES # (AUTO) 1.1 X 10^3 (0.0-1.0); MONOCYTES % (AUTO) 13 % (0-12); NEUTROPHILS # (AUTO) 4.1 X 10^3 (1.8-7.8); NEUTROPHILS % (AUTO) 49 % (42-75); PLATELET COUNT 298 10^3/uL (130-400); RED CELL DISTRIBUTION WIDTH 15.7 % (10.0-14.5); WHITE BLOOD COUNT 8.3 10^3/uL (4.3-11.0)
[2017-01-05 14:38] LABS: INR 1.1 (0.8-1.4); PROTHROMBIN TIME PATIENT 13.9 SEC (12.2-14.7)
[2017-01-05] MEDS: PANTOPRAZOLE 40 MG/10 ML (PROTONIX) VIAL IV SCH ×2 (14:43→21:42)
[2017-01-05] MEDS: NS IV 1000 ML 1,000 ML IV SCH ×2 (14:43→19:45)
[2017-01-05 14:47] LABS: ALANINE AMINOTRANSFERASE 15 U/L (0-55); ALBUMIN 3.6 GM/DL (3.2-4.5); ANION GAP 9 MMOL/L (5-14); ASPARTATE AMINO TRANSFERASE 15 U/L (5-34); BILIRUBIN,TOTAL 0.4 MG/DL (0.1-1.0); BLOOD UREA NITROGEN 22 MG/DL (7-18); BUN/CREATININE RATIO 27; CARBON DIOXIDE 26 MMOL/L (21-32); CHLORIDE 104 MMOL/L (98-107); CREATININE SERUM 0.81 MG/DL (0.60-1.30); GFR ESTIMATED > 60; GLUCOSE 104 MG/DL (70-105); SODIUM 139 MMOL/L (135-145); TOTAL PROTEIN 6.2 GM/DL (6.4-8.2)
[2017-01-05] MEDS ORDERED: SIMV10TA3 PO (14:48)
[2017-01-05] MEDS ORDERED: PHEN-826 PO (14:48)
[2017-01-05] MEDS ORDERED: TR1C15 TOP (14:48)
[2017-01-05] MEDS ORDERED: METF500T4 PO (14:48)
[2017-01-05] MEDS ORDERED: MELA3TAB PO (14:48)
[2017-01-05] MEDS ORDERED: RIVA1PAT11 TOP (14:48)
[2017-01-05] MEDS ORDERED: DULO30CA48 PO (14:48)
[2017-01-05] MEDS ORDERED: CHOL5000 PO (14:48)
[2017-01-05] MEDS ORDERED: TOLT2TAB5 PO (14:48)
[2017-01-05] MEDS ORDERED: CALC500T34 PO (14:48)
[2017-01-05] MEDS ORDERED: FA/M1TAB28 PO (14:48)
[2017-01-05] MEDS ORDERED: LOSA100T28 PO (14:48)
[2017-01-05] MEDS ORDERED: POLY255P PO (14:48)
[2017-01-05 14:53] LABS: TROPONIN I < 0.30 NG/ML (<0.30)
[2017-01-05] MEDS ORDERED: TRAZ-28 PO (14:58)
[2017-01-05] MEDS ORDERED: OMEG-77 PO (14:58)
[2017-01-05] MEDS ORDERED: HYDR-3816 PO (14:58)
[2017-01-05] MEDS ORDERED: MUPI22OI2 TP (14:58)
[2017-01-05] MEDS ORDERED: IBUP-1773 PO (14:58)
[2017-01-05] MEDS ORDERED: ATEN50TA PO (14:58)
--- NOTE | 2017-01-05 15:06 | Diagnostic Imaging Report ---
INDICATION: Shortness of air, gastrointestinal bleed. TECHNIQUE: Single view chest at 1:21 PM. CORRELATION STUDY: 09/21/2009. FINDINGS: The heart size is enlarged and the mediastinum is prominent. The findings appear to be relatively stable. The vasculature overall is generally stable. Increased density at the right lung base may be owing to an area of atelectasis, particularly over the right middle lobe. A ha infiltrate does not appear to be present. IMPRESSION: 1. Overall relatively stable cardiac enlargement with evidence for overt failure. The mediastinum is prominent and widened. This appears to be unchanged given differences in imaging technique. 2. Likely atelectasis about the right lung base. Dictated by: Dictated on workstation # [id number]
[2017-01-05 15:24] LABS: BILIRUBIN,URINE NEGATIVE (NEGATIVE); KETONES,URINE NEGATIVE (NEGATIVE); LEUKOCYTE ESTERASE ,URINE NEGATIVE (NEGATIVE); NITRITE,URINE POSITIVE (NEGATIVE); PH,URINE 7 (5-9); PROTEIN,URINE NEGATIVE (NEGATIVE); UROBILINOGEN,URINE NORMAL (NORMAL)
[2017-01-05 15:48] LABS: WBC,URINE 0-2 /HPF
[2017-01-05] MEDS: SUCRALFATE 1 GM (CARAFATE) TAB PO SCH ×2 (16:00→21:42)
--- NOTE | 2017-01-05 16:36 | Diagnostic Imaging Report ---
INDICATION: Line placement. TECHNIQUE: Single view chest 4:23 p.m. CORRELATION STUDY: 01/05/2017. FINDINGS: Since prior imaging, right-sided central line has been placed. Tip projects over the expected location of the cavoatrial junction. Remainder of the examination is generally stable. Density of the right lung base may be reflective of atelectasis or infiltrate in the region of the right middle lobe. Vasculature overall is slightly prominent. IMPRESSION: Right-sided central line has been places with tip projected over the cavoatrial junction. Dictated by: Dictated on workstation # [id number]
--- NOTE | 2017-01-05 16:56 | CONSULTATION REPORT ---
DATE OF SERVICE: 01/05/17 Consulting physician: Jah Emerson MD ATTENDING PRIMARY CARE PHYSICIAN: Dr. Paige Helton. The patient is an 81-year-old female who is a [facility] She reports noticing dark stools starting yesterday, as well as feeling weak, lightheaded, as well as short of breath. She had notified her physician and underwent laboratory work and instructed to stop her Eliquis, which was stopped yesterday. Her blood showed a hemoglobin around 8 and her baseline is around 13. She reported that she had another episode of dark stools this morning. She states that she did have a colonoscopy approximately what she believes to be 5-6 years ago. This was done in [place], [place], where her family is from. She states that she has lived in this area for the past 10 years. She reports that the colonoscopy that was done was normal and that she does not remember any abnormalities. She also does not report any family history of colon cancer. She does state that she has had some issues with acid indigestion as well as gastroesophageal reflux disease. She also states that she drinks orange juice every morning. She does not drink alcohol or smoke cigarettes. PAST MEDICAL HISTORY: Hypertension, hypercholesterolemia, diverticulosis, yav-vkedfuv-mlnoswrzz diabetes, cataracts, and depression. PAST SURGICAL HISTORY: Appendectomy, partial colectomy, knee arthroscopy, cataract surgery. ALLERGIES: No known drug allergies. MEDICATIONS: Amlodipine 5 mg daily, Eliquis 5 mg daily, atenolol 5 mg daily, duloxetine 60 mg daily, hydrocodone 1 tab each day at bedtime, losartan 50 mg daily, metformin 500 mg b.i.d., fish oil daily, sertraline 50 mg daily, simvastatin 10 mg daily. SOCIAL HISTORY: Negative smoke, negative alcohol. FAMILY HISTORY: Noncontributory. VITAL SIGNS: Stable. Systolic blood pressure in the 120s. REVIEW OF SYSTEMS: This is a well-nourished female currently in no acute distress. She answers all questions appropriately. She is not experiencing shortness of breath at rest, however, does upon exertion. No cough or sputum production. No chest pain, palpitations, diaphoresis. No nausea, vomiting. No hematemesis or coffee-ground emesis. Dark tarry stools for the past 2 days with approximately 3 total episodes. No red blood per rectum. No fever, chills. No recent inadvertent weight loss. All other review of systems negative. PHYSICAL EXAMINATION: CHEST: A few scattered rales bilaterally. Good breath sounds bilaterally. HEART: Regular. No murmurs. EXTREMITIES: +2/3 bilateral lower extremity edema. Negative Homans sign. HEENT: No scleral icterus. No cervical lymphadenopathy. ABDOMEN: Soft, nontender, nondistended. SKIN: Warm and dry. ASSESSMENT AND PLAN: An 81-year-old female with dark tarry stools as well as exertional shortness of breath, weakness, fatigue, consistent with blood loss anemia from an upper gastrointestinal source. We will proceed with resuscitation with IV fluids as well as possible blood products, hold the Eliquis. Once adequately resuscitated, we will then proceed with a diagnostic, as well as possible therapeutic EGD, as well as biopsies appropriate for possible H. pylori. She will also be on Protonix 40 mg IV b.i.d. as well. Job ID: [id number] DocumentID: [id number] Dictated Date: 01/05/2017 14:50:21 Heel Layer Date: 01/05/2017 16:55:40 Dictated By: Jah Emerson MD [facility] SYSTEM[facility]rist[facility]
[2017-01-05] MEDS ORDERED: NS IV 500 ML 500 ML IV ONE (17:00)
[2017-01-05] MEDS: ACETAMINOPHEN 500 MG TAB (TYLENOL) PO PRN (21:42)
[2017-01-06] VITALS (8 sets, daily range): BP systolic 125–169; BP diastolic 65–98
[2017-01-06] MEDS: NS IV 1000 ML 1,000 ML IV SCH (03:11)
[2017-01-06] MEDS ORDERED: RT-ALBUTEROL SULF 2.5 MG/3 ML PRE-MIX VIAL IH PRN (03:30)
[2017-01-06 05:22] LABS: BASOPHILS % (AUTO) 0 % (0-10); EOSINOPHILS # (AUTO) 0.1 10^3/uL (0.0-0.3); EOSINOPHILS % (AUTO) 2 % (0-10); LYMPHOCYTES # (AUTO) 2.1 X 10^3 (1.0-4.0); LYMPHOCYTES % (AUTO) 32 % (12-44); MEAN CORPUSCULAR HEMOGLOBIN 28 PG (25-34); MEAN CORPUSCULAR HGB CONC 31 G/DL (32-36); MEAN CORPUSCULAR VOLUME 92 FL (80-99); MEAN PLATELET VOLUME 10.3 FL (7.4-10.4); MONOCYTES # (AUTO) 0.9 X 10^3 (0.0-1.0); MONOCYTES % (AUTO) 14 % (0-12); NEUTROPHILS # (AUTO) 3.3 X 10^3 (1.8-7.8); NEUTROPHILS % (AUTO) 52 % (42-75); PLATELET COUNT 273 10^3/uL (130-400); RED BLOOD COUNT 2.69 10^6/uL (4.35-5.85); RED CELL DISTRIBUTION WIDTH 15.8 % (10.0-14.5); WHITE BLOOD COUNT 6.5 10^3/uL (4.3-11.0)
[2017-01-06 05:40] LABS: ALANINE AMINOTRANSFERASE 14 U/L (0-55); ALBUMIN 3.3 GM/DL (3.2-4.5); ANION GAP 7 MMOL/L (5-14); ASPARTATE AMINO TRANSFERASE 17 U/L (5-34); BILIRUBIN,TOTAL 0.5 MG/DL (0.1-1.0); BLOOD UREA NITROGEN 17 MG/DL (7-18); BUN/CREATININE RATIO 23; CALCIUM 8.1 MG/DL (8.5-10.1); CARBON DIOXIDE 26 MMOL/L (21-32); CHLORIDE 109 MMOL/L (98-107); CREATININE SERUM 0.74 MG/DL (0.60-1.30); GFR ESTIMATED > 60; GLUCOSE 102 MG/DL (70-105); POTASSIUM 3.7 MMOL/L (3.6-5.0); SODIUM 142 MMOL/L (135-145); TOTAL PROTEIN 5.8 GM/DL (6.4-8.2)
[2017-01-06] MEDS: SUCRALFATE 1 GM (CARAFATE) TAB PO SCH ×4 (07:29→21:33)
--- NOTE | 2017-01-06 08:41 | Progress Note-Hospitalist ---
Subjective HPI/CC On Admission Date Seen by Provider: Jan 06, 2017 Time Seen by Provider: 07:40 CC: Weakness HPI: Pt is an 81yoCF with a PMH of A-fib on anticoagulation, HTN, Depression, Anxiety who presented as a direct admit from her [facility] with dark stools and presumed GI Bleed. She has been feeling very weak and tired for the past couple of days. Yesterday morning she had a black stool and has continued to have multiple black loose stools throughout yesterday and this morning. Her PCP Dr. Helton was notified and labs were ordered as outpatient and her eliquis was stopped yesterday. Her FOBT was positive her hemoglobin had dropped from her baseline of ~13 ro 8 this morning. She denies any abd pain, CP, palpitations, lightheadedness, or current SOB but has had MULLEN. She denies any history of GI bleed but does have a history of diverticulosis. Subjective/Events-last exam Reports feeling slightly better than yesterday. She reports sleeping poorly due to frequent urination. She denies any further stools since admission. Objective Exam Vital Signs Vital Sign - Last 12Hours 01/05/17 01/06/17 12:30 03:20 Temp 97.8 Pulse 75 Resp 16 B/P (MAP) 90/57 Pulse Ox 92 O2 Delivery Room Air FiO2 21 Capillary Refill : General Appearance: No Apparent Distress, WD/WN Respiratory: Lungs Clear, No Respiratory Distress Cardiovascular: No Murmur, Irregularly Irregular Gastrointestinal: Normal Bowel Sounds, Non Tender, Soft Extremity: Non Tender, No Calf Tenderness Neurologic/Psychiatric: Alert, Oriented x3 Skin: Pallor Results/Procedures Lab Laboratory Tests 01/05/17 14:10 01/05/17 19:30 01/06/17 05:15 Assessment/Plan Assessment and Plan Assess & Plan/Chief Complaint GI Bleed Diagnosis/Problems Diagnosis/Problems (1) GI (gastrointestinal hemorrhage) Status: Acute Assessment & Plan: Surgery consulted, appreciate recs Plan for EGD tomorrow AM CLD IV Protonix Hemoglobin up this AM without intervention Hold transfusion at this time Will start iron infusion with QOD Venofer given large iron deficit (2) Essential (primary) hypertension Status: Chronic Assessment & Plan: Improved this AM with fluids Will hold home antihypertensives as goal for age (3) Chronic a-fib Assessment & Plan: taken off eliquis 01/04 and ASA on 01/02 Rate controlled currently Cards consulted, appreciate recs (4) Prediabetes Status: Chronic Assessment & Plan: Hold Metformin while inpatient Will add SSI A if needed (5) Depression Assessment & Plan: Hold home meds while NPO (6) Insomnia Status: Chronic Assessment & Plan: Resumed trazodone if needed tonight (7) Prophylactic measure Assessment & Plan: SCDs only due to GI bleed 1/2 NS at 100ml/hr CLD, NPO after midnight LESIA MOLINA MD Jan 06, 2017 08:41
[2017-01-06] MEDS: CATHETER FLUSH 10 ML SYR IV PRN ×2 (08:43→12:51)
[2017-01-06] MEDS: PANTOPRAZOLE 40 MG/10 ML (PROTONIX) VIAL IV SCH ×2 (08:43→21:32)
[2017-01-06] MEDS ORDERED: traZODone 50 MG (DESYREL) TAB PO PRN (08:45)
[2017-01-06] MEDS: 1/2 NS IV SOLUTION 1,000 ML IV SCH ×3 (09:18→21:31)
[2017-01-06] MEDS: RT-ALBUTEROL SULF 2.5 MG/3 ML PRE-MIX VIAL IH SCH ×3 (10:18→19:30)
--- NOTE | 2017-01-06 10:34 | Progress Note-Pre Operative ---
Pre-Operative Progress Note H&P Reviewed The H&P was reviewed, patient examined and no changes noted. Date Seen by Provider: Jan 06, 2017 Time Seen by Provider: 10:30 Date H&P Reviewed: Jan 06, 2017 Time H&P Reviewed: :30 Pre-Operative Diagnosis: upper GI bleed DUSTIN MENDEZ MD Jan 06, 2017 10:34
--- NOTE | 2017-01-06 10:37 | Progress Note (SOAP) ---
Subjective Date Seen by Provider: Jan 06, 2017 Time Seen by Provider: 10:34 Subjective/Events-last exam doing better. no signs of clinical bleed. tolerating clears. no abdominal pain. positive UTI. Objective Exam Vital Signs Date Time Temp Pulse Resp B/P (MAP) Pulse Ox O2 Delivery O2 Flow Rate FiO2 01/06/17 10:24 95 Room Air 01/06/17 09:00 Room Air 01/06/17 08:00 96 Room Air 01/06/17 08:00 96.2 71 20 133/68 97 Room Air 01/06/17 07:00 75 01/06/17 04:00 97.5 71 15 125/78 96 Room Air 01/06/17 04:00 95 Room Air 01/06/17 03:20 85 95 21 01/06/17 01:00 85 01/06/17 00:00 98.7 70 15 133/85 96 Room Air 01/06/17 00:00 95 Room Air 01/05/17 21:00 Room Air 01/05/17 20:00 95 Room Air 01/05/17 20:00 98.7 70 17 134/78 96 Room Air 01/05/17 19:00 85 01/05/17 16:00 95 Room Air 01/05/17 16:00 97.0 68 17 107/82 98 Room Air 01/05/17 13:30 68 15 123/67 94 Room Air 01/05/17 13:15 71 18 106/95 92 Room Air 01/05/17 13:00 Room Air 01/05/17 13:00 71 18 103/59 92 Room Air 01/05/17 12:45 80 18 105/60 94 Room Air 01/05/17 12:30 97.8 75 16 90/57 92 Room Air I & O 01/07/17 07:00 Intake Total 600 ml Balance 600 ml Capillary Refill : General Appearance: No Apparent Distress HEENT: PERRL/EOMI Neck: Full Range of Motion Respiratory: Normal Breath Sounds, Rales Cardiovascular: Regular Rate, Rhythm Gastrointestinal: normal bowel sounds, non tender, soft Extremity: Normal Capillary Refill Neurologic/Psychiatric: Alert, Oriented x3 Skin: Normal Color Lymphatic: No Adenopathy Results Lab Laboratory Tests 01/05/17 14:10: White Blood Count 8.3, Red Blood Count 2.90L, Hemoglobin 8.2L, Hematocrit 27L, Mean Corpuscular Volume 92, Mean Corpuscular Hemoglobin 28, Mean Corpuscular Hemoglobin Concent 31L, Red Cell Distribution Width 15.7H, Platelet Count 298, Mean Platelet Volume 10.6H, Neutrophils (%) (Auto) 49, Lymphocytes (%) (Auto) 36 , Monocytes (%) (Auto) 13H, Eosinophils (%) (Auto) 2, Basophils (%) (Auto) 1, Neutrophils # (Auto) 4.1, Lymphocytes # (Auto) 3.0, Monocytes # (Auto) 1.1H, Eosinophils # (Auto) 0.1, Basophils # (Auto) 0.0, Prothrombin Time 13.9, INR Comment 1.1, Sodium Level 139, Potassium Level 4.0, Chloride Level 104, Carbon Dioxide Level 26, Anion Gap 9, Blood Urea Nitrogen 22H, Creatinine 0.81, Estimat Glomerular Filtration Rate > 60, BUN/Creatinine Ratio 27, Glucose Level 104, Lactic Acid Level 2.26*H, Calcium Level 9.0, Total Bilirubin 0.4, Aspartate Amino Transf (AST/SGOT) 15, Alanine Aminotransferase (ALT/SGPT) 15, Alkaline Phosphatase 43, Troponin I < 0.30, B-Type Natriuretic Peptide 251.2H, Total Protein 6.2L, Albumin 3.6 01/05/17 15:00: Urine Color YELLOW, Urine Clarity CLEAR, Urine pH 7, Urine Specific [place] 1.010L, Urine Protein NEGATIVE, Urine Glucose (UA) NEGATIVE, Urine Ketones NEGATIVE, Urine Nitrite POSITIVEH, Urine Bilirubin NEGATIVE, Urine Urobilinogen NORMAL, Urine Leukocyte Esterase NEGATIVE, Urine RBC (Auto) 1+H, Urine RBC NONE , Urine WBC 0-2, Urine Squamous Epithelial Cells 5-10, Urine Crystals PRESENTH, Urine Amorphous Sediment MOD DIAZ PHOSPHATEH, Urine Bacteria FEWH, Urine Casts NONE, Urine Mucus NEGATIVE, Urine Culture Indicated YES 01/05/17 17:20: Lactic Acid Level 1.15 01/05/17 19:30: Hemoglobin 6.9*L 01/06/17 05:15: White Blood Count 6.5, Red Blood Count 2.69L, Hemoglobin 7.6L, Hematocrit 25L, Mean Corpuscular Volume 92, Mean Corpuscular Hemoglobin 28, Mean Corpuscular Hemoglobin Concent 31L, Red Cell Distribution Width 15.8H, Platelet Count 273, Mean Platelet Volume 10.3, Neutrophils (%) (Auto) 52, Lymphocytes (%) (Auto) 32 , Monocytes (%) (Auto) 14H, Eosinophils (%) (Auto) 2, Basophils (%) (Auto) 0, Neutrophils # (Auto) 3.3, Lymphocytes # (Auto) 2.1, Monocytes # (Auto) 0.9, Eosinophils # (Auto) 0.1, Basophils # (Auto) 0.0, Sodium Level 142, Potassium Level 3.7, Chloride Level 109H, Carbon Dioxide Level 26, Anion Gap 7, Blood Urea Nitrogen 17, Creatinine 0.74, Estimat Glomerular Filtration Rate > 60, BUN/ Creatinine Ratio 23, Glucose Level 102, Calcium Level 8.1L, Total Bilirubin 0.5 , Aspartate Amino Transf (AST/SGOT) 17, Alanine Aminotransferase (ALT/SGPT) 14, Alkaline Phosphatase 45, Total Protein 5.8L, Albumin 3.3 Microbiology 01/05/17 Urine Culture - Preliminary, Resulted Gram Negative Thomas Assessment/Plan Assessment/Plan Assess & Plan/Chief Complaint Upper GI bleed most likely secondary PUD combined with anticoagulation. stable. hx PUD and GERD. on protonix BID and cararfate. will plan for EGD and bx to r/o h. pylori in am. Clinical Quality Measures DVT/VTE Risk/Contraindication: Risk Factor Score Per Nursin RFS Level Per Nursing on Admit: 4+=Very High Contraindications-Pharm: Other *list below* Other: GIB DVT/VTE Prophylaxis Comfirm.Dx Pharmacological not ordered: Other (GIB) DUSTIN MENDEZ MD Jan 06, 2017 10:37
--- NOTE | 2017-01-06 12:22 | Consultation-Cardiology ---
HPI-Cardiology Cardiology Consultation: Date of Consultation 01/06/17 Date of Admission Attending Physician Madeleine Pereira MD Admitting Physician Gita Helton DO Consulting Physician Betty EVERETT MD HPI: Time Seen by Provider: 12:20 Chief Complaint: GI bleeding this is a 81-year-old lady with history of chronic atrial fibrillation, hypertension. She was on rate control and oral anticoagulation. She presented with tarry black stools and significant drop in hemoglobin. No significant other cardiac symptoms. Eliquis has been stopped. Review of Systems-Cardiology Review of Systems Constitutional: No As described under HPI, No no symptoms reported, No chills, No fever, No lightheadedness, No malaise, No tiredness, No weight loss, No weight gain, No other Eyes: No As described under HPI, No no symptoms reported, No blindness, No blurred vision, No contact lenses, No drainage, No decreased acuity, No foreign body sensation, No glasses, No inflammation, No pain, No photophobia, No previous injury, No shadows, No tunnel vision, No other, No vision change Ears/Nose/Throat: No As described under HPI, No no symptoms reported, No chronic hearing loss, No epistaxis, No ear discharge, No ear pain, No loose teeth, No mouth pain, No mouth swelling, No nasal drainage, No nose pain, No recent hearing loss, No throat pain, No throat swelling, No ulcerations, No other Respiratory: No no symptoms reported, No As described under HPI, No cough, No orthopnea, No shortness of breath, No SOB with excertion, No SOB at rest, No stridor, No wheezing, No other Cardiovascular: No no symptoms reported, No As described under HPI, No chest pain, No edema, No irregular heart rate, No lightheadedness, No palpitations, No syncope, No other Gastrointestinal: As described under HPI Genitourinary: No no symptoms reported, No As described under HPI, No burning, No dysuria, No discharge, No frequency, No flank pain, No hematuria, No incontinence, No pain, No urgency, No other, No urine frequency changes, No urine coloration changes Musculoskeletal: No no symptoms reported, No As describe under HPI, No back pain, No gout, No joint pain, No joint swelling, No muscle pain, No muscle stiffness, No neck pain, No other Skin: No no symptoms reported, No As described under HPI, No change in color, No change in hair/nails, No dryness, No lesions, No lumps, No rash, No other, No skin related problems, No ulcerations, No rash on exposed areas, No ulcerations on exposed areas Psychiatric/Neurological: No no symptoms reported, No As described under HPI, No anxiety, No depression, No emotional problems, No headache, No numbness, No pre-existing deficit, No seizure, No tingling, No tremors, No weakness, No other , No focal weakness, No syncope AHE-Kpohtx-Vfilpp Hx Patient Social History Marrital Status: Employed/Student: retired Alcohol Use: Denies Use Recreational Drug Use: No Smoking Status: Former Smoker Type Used: Cigarettes Recent Foreign Travel: No Recent Infectious Disease Expo: No Physical Abuse Screen: No Sexual Abuse: No Past Medical History PMH As described under Assessment. Allergies and Home Medications Allergies Coded Allergies: No Known Drug Allergies (Unverified , 02/14/10) Home Medications Amlodipine Besylate 5 Mg Tablet, 5 MG PO DAILY, (Reported) Apixaban 5 Mg Tablet, 5 MG PO BID, (Reported) Atenolol 50 Mg Tablet, 50 MG PO DAILY, (Reported) HOLD FOR SBP<120 Calcium Carbonate 500 Mg Tablet, 500 MG PO BID, (Reported) Cholecalciferol (Vitamin D3) 5,000 Unit Capsule, 5,000 UNITS PO DAILY, (Reported ) Duloxetine HCl 30 Mg Capsule.dr, 30 MG PO BID, (Reported) Hydrocodone/Acetaminophen 1 Each Tablet, 0.5 TAB PO HS, (Reported) Hydrocodone/Acetaminophen 1 Each Tablet, 1 TAB PO TID PRN for PAIN-MODERATE, ( Reported) Ibuprofen 600 Mg Tablet, 600 MG PO Q6H PRN for PAIN-MILD, (Reported) Losartan Potassium 100 Mg Tablet, 100 MG PO DAILY, (Reported) HOLD FOR SBP<120 Melatonin 3 Mg Tablet, 3 MG PO HS, (Reported) Metformin HCl 500 Mg Tablet, 500 MG PO BID, (Reported) Multivit-Min/FA/Lycopene/Lut 1 Each Tablet, 1 TAB PO DAILY, (Reported) Mupirocin 22 Gm Oint...g., TP BID, (Reported) APPLY SMALL AMOUNT TOPICALLY TO 4TH WEB SPACE OF RT FOOT [place]-3 Fatty Acids/Fish Oil 1 Each Capsule, 1,000 MG PO DAILY, (Reported) Phenazopyridine HCl 100 Mg Tablet, 100 MG PO HS, (Reported) Polyethylene Glycol 3350 255 Gm Powder, 17 GM PO DAILY PRN for CONSTIPATION-2ND LINE, (Reported) Rivastigmine 1 Each Patch.td24, 4.6 MG TOP DAILY, (Reported) Simvastatin 10 Mg Tablet, 10 MG PO 2000, (Reported) Tolterodine Tartrate 2 Mg Tablet, 2 MG PO BID, (Reported) Trazodone HCl 50 Mg Tablet, 50 MG PO HS PRN for INSOMNIA, (Reported) Triamcinolone Acet 15 Gm Cr, TOP BID, (Reported) Physical Exam-Cardiology Physical Exam Vital Signs/I&O Vital Sign - Last 12Hours 01/06/17 01/06/17 01/06/17 01/06/17 01:00 03:20 04:00 04:00 Temp 97.5 Pulse 85 85 71 Resp 15 B/P (MAP) 125/78 Pulse Ox 95 95 96 O2 Delivery Room Air Room Air FiO2 21 01/06/17 01/06/17 01/06/17 01/06/17 07:00 08:00 08:00 09:00 Temp 96.2 Pulse 75 71 Resp 20 B/P (MAP) 133/68 Pulse Ox 97 96 O2 Delivery Room Air Room Air Room Air 01/06/17 10:24 Pulse Ox 95 O2 Delivery Room Air Capillary Refill : Constitutional: No appears stated age, No AAO x 3, No apparent distress, No PERRL, No well-developed, No well-nourished, No other HEENT: No PERRL, No normal ENT inspection, No TMs normal, No pharynx normal, No scleral icterus (R), No scleral icterus (L), No pale conjunctivae (R), No pale conjunctivae (L), No photophobia, No TM abnormal (R), No TM abnormal (L), No pharyngeal erythema, No tonsillar exudate, No other, No discharge, No EOMI, No hearing is well preserved, No hard of hearing, No oral hygience is good, No ulceration, No xanthelasmas are seen Neck: No non-tender, No full range of motion, No supple, No normal inspection, No carotid bruit, No limited range of motion, No lymphadenopathy (R), No lymphadenopathy (L), No tender lateral, No tender midline, No thyromegaly, No other, No carotid pulses are 2 + bilaterally, No with good upstrokes Respiratory: No accessory muscle use, No respiratory distress, No chest tender , No chest expansion is symmetric, No chest is bilaterally symmetric, No lungs clear to percussion, No lungs clear to auscultation, No crackles, No rhonchi, No rales, No stridor, No wheezing, No pleural rub, No other Cardiovascular: irregularly irregular Gastrointestinal: No tender, No soft, No round, No distended, No pulsatile mass , No organomegaly, No guarding, No rebound, No tenderness, No hernia, No mass, No audible bowel sounds, No abnormal bowel sounds, No abdominal bruits, No spleenomegaly, No other Rectal: deferred Extremities: No normal range of motion, No non-tender, No normal inspection, No pedal edema, No calf tenderness, No normal capillary refill, No pelvis stable , No calf tenderness, No inflammation, No pedal edema, No slow capillary refill , No swelling, No other, No abrasion, No clubbing, No cyanosis, No ecchymosis, No laceration, No no lower extremity edema bilateral, No significant edema, No tenderness, No wound Neurologic/Psychiatric: No store standards associate II-XII nml as tested, No no motor/sensory deficits, No alert, No normal mood/affect, No oriented x 3, No abnormal cerebellar tests, No abnormal store standards associate II-XII, No abnormal gait, No aphasia, No EOM palsy, No facial droop, No motor weakness, No sensory deficit, No depressed affect, No disoriented x 3, No other, No grossly intact, No power is 5/5 both on sides Data Review Labs Laboratory Tests 01/05/17 14:10: White Blood Count 8.3, Red Blood Count 2.90L, Hemoglobin 8.2L, Hematocrit 27L, Mean Corpuscular Volume 92, Mean Corpuscular Hemoglobin 28, Mean Corpuscular Hemoglobin Concent 31L, Red Cell Distribution Width 15.7H, Platelet Count 298, Mean Platelet Volume 10.6H, Neutrophils (%) (Auto) 49, Lymphocytes (%) (Auto) 36 , Monocytes (%) (Auto) 13H, Eosinophils (%) (Auto) 2, Basophils (%) (Auto) 1, Neutrophils # (Auto) 4.1, Lymphocytes # (Auto) 3.0, Monocytes # (Auto) 1.1H, Eosinophils # (Auto) 0.1, Basophils # (Auto) 0.0, Prothrombin Time 13.9, INR Comment 1.1, Sodium Level 139, Potassium Level 4.0, Chloride Level 104, Carbon Dioxide Level 26, Anion Gap 9, Blood Urea Nitrogen 22H, Creatinine 0.81, Estimat Glomerular Filtration Rate > 60, BUN/Creatinine Ratio 27, Glucose Level 104, Lactic Acid Level 2.26*H, Calcium Level 9.0, Total Bilirubin 0.4, Aspartate Amino Transf (AST/SGOT) 15, Alanine Aminotransferase (ALT/SGPT) 15, Alkaline Phosphatase 43, Troponin I < 0.30, B-Type Natriuretic Peptide 251.2H, Total Protein 6.2L, Albumin 3.6 01/05/17 15:00: Urine Color YELLOW, Urine Clarity CLEAR, Urine pH 7, Urine Specific [place] 1.010L, Urine Protein NEGATIVE, Urine Glucose (UA) NEGATIVE, Urine Ketones NEGATIVE, Urine Nitrite POSITIVEH, Urine Bilirubin NEGATIVE, Urine Urobilinogen NORMAL, Urine Leukocyte Esterase NEGATIVE, Urine RBC (Auto) 1+H, Urine RBC NONE , Urine WBC 0-2, Urine Squamous Epithelial Cells 5-10, Urine Crystals PRESENTH, Urine Amorphous Sediment MOD DIAZ PHOSPHATEH, Urine Bacteria FEWH, Urine Casts NONE, Urine Mucus NEGATIVE, Urine Culture Indicated YES 01/05/17 17:20: Lactic Acid Level 1.15 01/05/17 19:30: Hemoglobin 6.9*L 01/06/17 05:15: White Blood Count 6.5, Red Blood Count 2.69L, Hemoglobin 7.6L, Hematocrit 25L, Mean Corpuscular Volume 92, Mean Corpuscular Hemoglobin 28, Mean Corpuscular Hemoglobin Concent 31L, Red Cell Distribution Width 15.8H, Platelet Count 273, Mean Platelet Volume 10.3, Neutrophils (%) (Auto) 52, Lymphocytes (%) (Auto) 32 , Monocytes (%) (Auto) 14H, Eosinophils (%) (Auto) 2, Basophils (%) (Auto) 0, Neutrophils # (Auto) 3.3, Lymphocytes # (Auto) 2.1, Monocytes # (Auto) 0.9, Eosinophils # (Auto) 0.1, Basophils # (Auto) 0.0, Sodium Level 142, Potassium Level 3.7, Chloride Level 109H, Carbon Dioxide Level 26, Anion Gap 7, Blood Urea Nitrogen 17, Creatinine 0.74, Estimat Glomerular Filtration Rate > 60, BUN/ Creatinine Ratio 23, Glucose Level 102, Calcium Level 8.1L, Total Bilirubin 0.5 , Aspartate Amino Transf (AST/SGOT) 17, Alanine Aminotransferase (ALT/SGPT) 14, Alkaline Phosphatase 45, Total Protein 5.8L, Albumin 3.3 Microbiology 01/05/17 Urine Culture - Preliminary, Resulted Gram Negative Thomas ECG Impression ECG Initial ECG Impression: Atrial Fibrillation A/P-Cardiology Assessment/Admission Diagnosis GI bleeding, Atrial fibrillation, Hypertension Plan deferred treatment of anemia and possible GI bleeding to the primary team and Dr. MENDEZ. Endoscopy scheduled tomorrow. No further oral anticoagulation. Continue rate control. Elevated blood pressure with systolic blood pressure of 160 mmHg. Will recommend gradually starting outpatient antihypertensives. Thank you for your consultation. Please call me if you have any questions. Sean Everett MD, FACP, FACC, FSCAI, FHRS, CCDS Interventional Cardiology Cardiac Electrophysiology Vascular Medicine and Endovascular Interventions Clinical Quality Measures DVT/VTE Risk/Contraindication: Risk Factor Score Per Nursin RFS Level Per Nursing on Admit: 4+=Very High Contraindications-Pharm: Other *list below* Other: GIB DVT/VTE Prophylaxis Comfirm.Dx Pharmacological not ordered: Other (GIB) Betty EVERETT MD Jan 06, 2017 12:22
[2017-01-06] MEDS: IRON SUCROSE INJECTION 300 MG in NS (IVPB) 250 ML IV SCH (12:51)
--- NOTE | 2017-01-06 18:52 | Conscious Sedation/ASA ---
Conscious Sedation Pre-Proced Time Reviewed: 10:30 ASA Class: 2 Airway Mallampati Classification: ([place] appropriate class) I. II. III, IV Lungs Heart ASA score ASA 1: a normal healthy patient ASA 2: a patient with a mild systemic disease (mid diabetes, controlled hypertension, obesity ASA 3: a patient with a severe systemic disease that limits activity (angina , COPD, prior Myocardial infarction) ASA 4: a patient with an incapacitating disease that is a constant threat to life (CHF, renal failure) ASA 5: a moribund patient not expected to survive 24 hrs. (ruptured aneurysm) ASA 6: a declared brain patient whose organs are being harvested. For emergent operations, add the letter E after the classification Grade 3 Sedation Plan: Analgesia, Amnesia, Plan communicated to team members, Discussed options with patient/fam, Discussed risks with patient/fam Note The patient is an appropriate candidate to undergo the planned procedure, sedation, and anesthesia. The patient immediately re-assessed prior to indication. DUSTIN MENDEZ MD Jan 06, 2017 6:52 pm
[2017-01-06] MEDS: CIPROFLOXACIN IV 400MG/200ML 200 ML IV SCH (21:31)
[2017-01-06] MEDS: ACETAMINOPHEN 500 MG TAB (TYLENOL) PO PRN (21:33)
[2017-01-07] VITALS (7 sets, daily range): BP systolic 121–178; BP diastolic 56–80
[2017-01-07] MEDS: RT-ALBUTEROL SULF 2.5 MG/3 ML PRE-MIX VIAL IH SCH ×4 (02:16→20:36)
[2017-01-07 04:31] LABS: BASOPHILS % (AUTO) 1 % (0-10); EOSINOPHILS # (AUTO) 0.1 10^3/uL (0.0-0.3); EOSINOPHILS % (AUTO) 2 % (0-10); LYMPHOCYTES # (AUTO) 1.5 X 10^3 (1.0-4.0); LYMPHOCYTES % (AUTO) 24 % (12-44); MEAN CORPUSCULAR HEMOGLOBIN 28 PG (25-34); MEAN CORPUSCULAR HGB CONC 31 G/DL (32-36); MEAN CORPUSCULAR VOLUME 91 FL (80-99); MEAN PLATELET VOLUME 10.3 FL (7.4-10.4); MONOCYTES # (AUTO) 0.8 X 10^3 (0.0-1.0); MONOCYTES % (AUTO) 13 % (0-12); NEUTROPHILS % (AUTO) 61 % (42-75); PLATELET COUNT 296 10^3/uL (130-400); RED BLOOD COUNT 2.78 10^6/uL (4.35-5.85); RED CELL DISTRIBUTION WIDTH 15.9 % (10.0-14.5); WHITE BLOOD COUNT 6.6 10^3/uL (4.3-11.0)
[2017-01-07 04:44] LABS: ANION GAP 11 MMOL/L (5-14); BLOOD UREA NITROGEN 10 MG/DL (7-18); BUN/CREATININE RATIO 14; CALCIUM 7.9 MG/DL (8.5-10.1); CARBON DIOXIDE 22 MMOL/L (21-32); CHLORIDE 110 MMOL/L (98-107); CREATININE SERUM 0.74 MG/DL (0.60-1.30); GFR ESTIMATED > 60; GLUCOSE 113 MG/DL (70-105); POTASSIUM 3.3 MMOL/L (3.6-5.0); SODIUM 143 MMOL/L (135-145)
[2017-01-07] MEDS: SUCRALFATE 1 GM (CARAFATE) TAB PO SCH ×4 (06:00→20:08)
[2017-01-07] MEDS: CIPROFLOXACIN IV 400MG/200ML 200 ML IV SCH (08:18)
[2017-01-07] MEDS: PANTOPRAZOLE 40 MG/10 ML (PROTONIX) VIAL IV SCH ×2 (08:18→20:08)
[2017-01-07] MEDS: 1/2 NS IV SOLUTION 1,000 ML IV SCH (08:18)
--- NOTE | 2017-01-07 09:35 | Progress Note-Hospitalist ---
Subjective HPI/CC On Admission Date Seen by Provider: Jan 07, 2017 Time Seen by Provider: 08:20 CC: Weakness HPI: Pt is an 81yoCF with a PMH of A-fib on anticoagulation, HTN, Depression, Anxiety who presented as a direct admit from her [facility] with dark stools and presumed GI Bleed. She has been feeling very weak and tired for the past couple of days. Yesterday morning she had a black stool and has continued to have multiple black loose stools throughout yesterday and this morning. Her PCP Dr. Helton was notified and labs were ordered as outpatient and her eliquis was stopped yesterday. Her FOBT was positive her hemoglobin had dropped from her baseline of ~13 ro 8 this morning. She denies any abd pain, CP, palpitations, lightheadedness, or current SOB but has had MULLEN. She denies any history of GI bleed but does have a history of diverticulosis. Subjective/Events-last exam Reports feeling about the same as last night. Ready for her EGD today. Objective Exam Vital Signs Vital Sign - Last 12Hours 01/05/17 01/06/17 12:30 03:20 Temp 97.8 Pulse 75 Resp 16 B/P (MAP) 90/57 Pulse Ox 92 O2 Delivery Room Air FiO2 21 Capillary Refill : General Appearance: No Apparent Distress, WD/WN Respiratory: Lungs Clear, No Respiratory Distress Cardiovascular: No Murmur, Irregularly Irregular Gastrointestinal: Normal Bowel Sounds, Non Tender, Soft Extremity: Non Tender, No Calf Tenderness, Pedal Edema Neurologic/Psychiatric: Alert, Oriented x3 Skin: Pallor Results/Procedures Lab Laboratory Tests 01/07/17 04:20 Assessment/Plan Assessment and Plan Assess & Plan/Chief Complaint GI Bleed Diagnosis/Problems Diagnosis/Problems (1) GI (gastrointestinal hemorrhage) Status: Acute Assessment & Plan: Surgery consulted, appreciate recs Plan for EGD this AM NPO IV Protonix, PO Carafate Hemoglobin up this AM, continue IV iron (2) Essential (primary) hypertension Status: Chronic Assessment & Plan: Relatively well controlled but trending up, will likely need to restart BP meds after scope (3) Chronic a-fib Assessment & Plan: taken off eliquis 01/04 and ASA on 01/02 Rate controlled Cards consulted, appreciate recs (4) Weakness generalized Assessment & Plan: PT/OT consulted Will consult Cm for discharge planning as well [place] (5) Prediabetes Status: Chronic Assessment & Plan: Hold Metformin while inpatient Will add SSI A if needed (6) Depression Assessment & Plan: Hold home meds while NPO (7) Insomnia Status: Chronic Assessment & Plan: trazodone (8) Prophylactic measure Assessment & Plan: SCDs only due to GI bleed 1/2 NS at 100ml/hr NPO for procedure transfer to floor after scope LESIA MOLINA MD Jan 07, 2017 09:34
[2017-01-07] MEDS ORDERED: MIDAZOLAM 2 MG/2 ML (VERSED) VIAL ONE (10:22)
[2017-01-07] MEDS: fentaNYL INJECTION 100 MCG/2 ML AMP IVP PRN ×2 (10:55→10:58)
[2017-01-07] MEDS: MIDAZOLAM 2 MG/2 ML (VERSED) VIAL IVP PRN ×2 (10:56→10:59)
[2017-01-07] MEDS ORDERED: HURRICAINE EXT TUBE (BENZOCAINE) XX ONE (12:00)
--- NOTE | 2017-01-07 12:15 | Progress Note-Post Operative ---
Post-Operative Progess Note Surgeon (s)/Rooming House Inspector (s) Surgeon DUSTIN MENDEZ MD Rooming House Inspector: none Pre-Operative Diagnosis upper GI bleed Post-Operative Diagnosis reflux esophagitis(class B), small HH(1cm), moderate gastritis with antral ulcer(1cm) with overlying fibrin clot. Procedure & Operative Findings Date of Procedure 01/07/17 Procedure Performed/Findings EGD with bx. Anesthesia Type CS Estimated Blood Loss Estimated blood loss (mL): minimal Specimens/Packing Specimens Removed antral ulcer, antrum, GE keithxDUSTIN Reyes MD Jan 07, 2017 12:15 pm
--- NOTE | 2017-01-07 12:19 | Cardiology Progress Note ---
Cardiology SOAP Progress Note Subjective: No cardiac symptoms Objective: I&O/Vital Signs Vital Sign - Last 12Hours 01/07/17 01/07/17 01/07/17 01/07/17 01:00 04:00 04:00 07:00 Temp 98.2 Pulse 67 79 100 Resp 15 B/P (MAP) 145/77 Pulse Ox 98 96 O2 Delivery Room Air Room Air 01/07/17 01/07/17 01/07/17 01/07/17 08:00 08:00 09:00 12:00 Temp 98.7 Pulse 80 Resp 15 B/P (MAP) 135/80 Pulse Ox 98 98 98 O2 Delivery Room Air Room Air Room Air Room Air Weight (Pounds): 311 Weight (Ounces): 7.0 Weight (Calculated Kilograms): 141.604323 Constitutional: No appears stated age, No AAO x 3, No apparent distress, No PERRL, No well-developed, No well-nourished, No other Respiratory: No accessory muscle use, No respiratory distress, No chest tender , No chest expansion is symmetric, No chest is bilaterally symmetric, No lungs clear to percussion, No lungs clear to auscultation, No crackles, No rhonchi, No rales, No stridor, No wheezing, No pleural rub, No other Cardiovascular: irregularly irregular Gastrointestional: No tender, No soft, No round, No distended, No pulsatile mass, No organomegaly, No guarding, No rebound, No tenderness, No hernia, No mass, No audible bowel sounds, No abnormal bowel sounds, No abdominal bruits, No spleenomegaly, No other Extremities: No normal range of motion, No non-tender, No normal inspection, No pedal edema, No calf tenderness, No normal capillary refill, No pelvis stable , No calf tenderness, No inflammation, No pedal edema, No slow capillary refill , No swelling, No other, No abrasion, No clubbing, No cyanosis, No ecchymosis, No laceration, No no lower extremity edema bilateral, No significant edema, No tenderness, No wound Neurologic/Psychiatric: No oxyacetylene welder II-XII nml as tested, No no motor/sensory deficits, No alert, No normal mood/affect, No oriented x 3, No abnormal cerebellar tests, No abnormal oxyacetylene welder II-XII, No abnormal gait, No aphasia, No EOM palsy, No facial droop, No motor weakness, No sensory deficit, No depressed affect, No disoriented x 3, No other, No grossly intact, No power is 5/5 both on sides Results/Procedures: Labs Laboratory Tests 01/07/17 04:20: White Blood Count 6.6, Red Blood Count 2.78L, Hemoglobin 7.8L, Hematocrit 25L, Mean Corpuscular Volume 91, Mean Corpuscular Hemoglobin 28, Mean Corpuscular Hemoglobin Concent 31L, Red Cell Distribution Width 15.9H, Platelet Count 296, Mean Platelet Volume 10.3, Neutrophils (%) (Auto) 61, Lymphocytes (%) (Auto) 24 , Monocytes (%) (Auto) 13H, Eosinophils (%) (Auto) 2, Basophils (%) (Auto) 1, Neutrophils # (Auto) 4.0, Lymphocytes # (Auto) 1.5, Monocytes # (Auto) 0.8, Eosinophils # (Auto) 0.1, Basophils # (Auto) 0.0, Sodium Level 143, Potassium Level 3.3L, Chloride Level 110H, Carbon Dioxide Level 22, Anion Gap 11, Blood Urea Nitrogen 10, Creatinine 0.74, Estimat Glomerular Filtration Rate > 60, BUN/ Creatinine Ratio 14, Glucose Level 113H, Calcium Level 7.9L Microbiology 01/05/17 Urine Culture - Final, Complete Escherichia Coli A/P: Assessment/Dx: GI bleeding, peptic ulcer disease Atrial fibrillation, Hypertension Plan: deferred treatment of anemia and possible GI bleeding to the primary team and Dr. MENDEZ. Endoscopy showed peptic ulcer disease. No further oral anticoagulation. Continue rate control. Hypertension: Continue home medications. Dr. Salas to follow from tomorrow. Thank you for your consultation. Please call me if you have any questions. Sean Everett MD, FACP, FACC, FSCAI, FHRS, CCDS Interventional Cardiology Cardiac Electrophysiology Vascular Medicine and Endovascular Interventions Diagnosis/Problems Diagnosis/Problems (1) GI (gastrointestinal hemorrhage) Status: Acute Assessment & Plan: Surgery consulted, appreciate recs Plan for EGD this AM NPO IV Protonix, PO Carafate Hemoglobin up this AM, continue IV iron (2) Essential (primary) hypertension Status: Chronic Assessment & Plan: Relatively well controlled but trending up, will likely need to restart BP meds after scope (3) Chronic a-fib Assessment & Plan: taken off eliquis 01/04 and ASA on 01/02 Rate controlled Cards consulted, appreciate recs (4) Weakness generalized Assessment & Plan: PT/OT consulted Will consult Cm for discharge planning as well Came from [facility] (5) Prediabetes Status: Chronic Assessment & Plan: Hold Metformin while inpatient Will add SSI A if needed (6) Depression Assessment & Plan: Hold home meds while NPO (7) Insomnia Status: Chronic Assessment & Plan: trazodone (8) Prophylactic measure Assessment & Plan: SCDs only due to GI bleed 1/2 NS at 100ml/hr NPO for procedure transfer to floor after scope Betty EVERETT MD Jan 07, 2017 12:19 pm
[2017-01-07] MEDS ORDERED: HURRICAINE EXT TUBE (BENZOCAINE) ONE (12:42)
[2017-01-07] MEDS: ATENOLOL 50 MG (TENORMIN) TAB PO SCH (18:16)
--- NOTE | 2017-01-07 22:02 | OPERATIVE REPORT ---
DATE OF SERVICE: 01/07/2017 ATTENDING PRIMARY CARE PHYSICIAN: Dr. Helton. PREOPERATIVE DIAGNOSIS: Dark tarry stools, exertional shortness of breath, anemia. POSTOPERATIVE DIAGNOSIS: Reflux esophagitis class B, moderate severity gastritis with a moderate sized antral ulcer with an overlying fibrin clot approximately 1 cm in size. No active bleeding. PROCEDURE: EGD with biopsy. SURGEON: Dr. Mendez. ANESTHESIA: Conscious sedation. ESTIMATED BLOOD LOSS: Minimal. FINDINGS: Reflux esophagitis class B, small hiatal hernia approximately 1 cm in size. There was a moderate severity gastritis with an ulcer identified at the antrum which appeared to be healing with an overlying fibrin clot. There were no identifiable masses. Pylorus and duodenum appeared normal. DISPOSITION: The patient tolerated the procedure well. INDICATIONS: The patient is an 81-year-old female, resident of [facility], [facility] She reports noticing dark stool starting the day before admission and then feeling weak and lightheaded as well as short of breath while upon exertion. She notified her physician and underwent laboratory work and was instructed to stop her Eliquis. Her hemoglobin was 8 and her baseline was around 13. She had also reported another episode of dark stools the morning of admission. She believes she had a colonoscopy approximately 5 to 6 years ago done in [facility] where her family is from. She thinks that this was normal and that there were no lesions identified. She does have a history of indigestion as well as gastroesophageal reflux disease. She also states drinking orange juice every morning. DESCRIPTION OF PROCEDURE: The patient remained in the ICU under monitor and after adequate IV pain and sedative medication were given, the mouthpiece was applied. Endoscope was placed in the mouth, visualizing the pharynx and hypopharyngeal region. Vocal cords, epiglottis and vallecula identified and appeared to be normal. The endoscope was then gently intubated to the esophageal opening and esophagus insufflated. The endoscope was then advanced through the first, second and third portions of the esophagus. At the level of the GE junction, a reflux esophagitis class B identified. There were no ulcers or strictures identified in this region. A biopsy was taken with forceps and electrocautery with visualization of good hemostasis. The endoscope was then easily advanced in the stomach and then endoscope retroflexed, visualizing a small hiatal hernia approximately 1 cm in size. There was a moderate severity gastritis noted, more focused towards the lower part of the stomach. At the antrum, an antral ulcer approximately 1 cm in size was identified. There was an overlying fibrin clot as well as heaped up edges. There were no neoplasms that were identified. A biopsy was taken of the ulcer edge using forceps and electrocautery with visualization of good hemostasis. A biopsy was taken of the antrum as well for H. pylori. The endoscope was then advanced to the pylorus and the first and second portions of the duodenum, which appeared normal with no distal obstructions. The endoscope was then slowly withdrawn while taking a second look and suctioning of residual air with no additional findings. The patient tolerated the procedure well. We will continue her on Protonix 40 mg IV b.i.d. as well as start Carafate 1 gram q.i.d. for the next two weeks and also on a p.r.n. basis. We will also await the biopsy results. We will also start a peptic ulcer disease bland diet and transfer her to the floor. Job ID: [id number] DocumentID: [id number] Dictated Date: 01/07/2017 12:22:24 Anesthesia Tech Date: 01/07/2017 22:01:41 Dictated By: DUSTIN MENDEZ MD
[2017-01-08 00:29] VITALS: BP 136/83
[2017-01-08] MEDS: RT-ALBUTEROL SULF 2.5 MG/3 ML PRE-MIX VIAL IH SCH ×4 (02:44→18:42)
[2017-01-08 04:25] VITALS: BP 133/77
[2017-01-08] MEDS: SUCRALFATE 1 GM (CARAFATE) TAB PO SCH ×4 (06:20→20:51)
[2017-01-08 08:25] VITALS: BP 122/69
[2017-01-08] MEDS: PANTOPRAZOLE 40 MG/10 ML (PROTONIX) VIAL IV SCH (08:45)
--- NOTE | 2017-01-08 09:23 | Cardiology Progress Note ---
Subjective Date Seen by Provider: Jan 08, 2017 Time Seen by Provider: 08:50 Subjective/Events-last exam Patient sitting up in chair, denies any CP or dyspnea. Review of Systems General: No Night Sweats, No Fatigue, No Malaise HEENT: No Visual Changes, No Dysphasia Pulmonary: No Dyspnea, No Cough Cardiovascular: No: Chest Pain, Palpitations, Orthopnea Gastrointestinal: No: Nausea, Vomiting, Abdominal Pain Genitourinary: No Dysuria, No Frequency Musculoskeletal: No: neck pain, back pain Neurological: No: Weakness, Numbness Objective-Cardiology Exam Last Set of Vital Signs Vital Signs 01/06/17 01/08/17 03:20 08:25 Temp 97.3 Pulse 97 Resp 20 B/P (MAP) 122/69 Pulse Ox 99 O2 Delivery Room Air FiO2 21 Capillary Refill : I&O Intake and Output 01/09/17 00:00 Intake Total 250 ml Output Total 275 ml Balance -25 ml Intake Oral 250 ml Output Urine Total 275 ml # Voids 1 General: Alert, Oriented X3, Cooperative HEENT: Atraumatic, PERRLA Neck: Supple, No JVD, No Thyromegaly Lungs: Clear to Auscultation, Normal Air Movement Heart: Normal S1, Normal S2, Other (irregularly irregular) Abdomen: Normal Bowel Sounds, Soft Skin: No Rashes, No Significant Lesion Neuro: Normal Gait, Normal Speech Psych/Mental Status: Mental Status NL, Mood NL A/P-Cardiology Admission Diagnosis GI Bleed Persistent atrial fibrillation HTN UTI Assessment/Plan GI Bleed, PUD- unable to tolerate OAC at this time. Continue Protonix and Carafate, continue to monitor. Paroxysmal atrial fibrillation, appear to be persistent at this time, rate is controlled. Maintained on beta jameel. Eliquis was discontinued secondary to GI bleed. Continue to monitor. [id number] score is 5, yearly risk of stroke without oral anticoagulation is 6.7 percent. Unable to tolerate OAC at this time. Will need to restart at a later time once she is able to tolerate it. UTI- management per hospitalist services. Chronic pedal edema, Venous study showed mild valvular insufficiency in the small saphenous vein on the left side. No other abnormality on the right side. Continue with compression therapy at this point. Hypertension, controlled, continue to monitor blood pressure. Hyperlipidemia, controlled, continue to monitor. Coronary artery disease, cardiac catheterization was carried out in September 2009 showing tortuous left anterior descending artery system with mainly nonobstructive disease and normal left ventricular function. Continue on current medications and monitor Diabetes mellitus, followed and managed by primary care physician. History of left ventricular hypertrophy with mild diastolic dysfunction, asymptomatic at this time, continue to monitor Depression, anxiety. Obesity, BMI is 53. We discussed weight loss and exercise program. History of hysterectomy, diverticular surgery Nonobstructive carotid artery stenosis-last carotid duplex July 2015. Continue to monitor. Clinical Quality Measures DVT/VTE Risk/Contraindication: Risk Factor Score Per Nursin RFS Level Per Nursing on Admit: 4+=Very High Contraindications-Pharm: Other *list below* Other: GIB DVT/VTE Prophylaxis Comfirm.Dx Pharmacological not ordered: Other (GIB) TRISH BRAMBILA Jan 08, 2017 09:23
[2017-01-08 09:45] LABS: MEAN PLATELET VOLUME 10.4 FL (7.4-10.4); RED BLOOD COUNT 3.03 10^6/uL (4.35-5.85); RED CELL DISTRIBUTION WIDTH 16.8 % (10.0-14.5); WHITE BLOOD COUNT 8.4 10^3/uL (4.3-11.0)
[2017-01-08] MEDS ORDERED: HYDROcodone/APAP 7.5 MG/325 MG (LORTAB, LORCET PLUS) TABLET PO PRN (10:00)
--- NOTE | 2017-01-08 10:00 | Progress Note-Hospitalist ---
Progress Note HPI/CC on Admission CC: Weakness HPI: Pt is an 81yoCF with a PMH of A-fib on anticoagulation, HTN, Depression, Anxiety who presented as a direct admit from her NURSING HOME with dark stools and presumed GI Bleed. She has been feeling very weak and tired for the past couple of days. Yesterday morning she had a black stool and has continued to have multiple black loose stools throughout yesterday and this morning. Her PCP Dr. Helton was notified and labs were ordered as outpatient and her eliquis was stopped yesterday. Her FOBT was positive her hemoglobin had dropped from her baseline of ~13 ro 8 this morning. She denies any abd pain, CP, palpitations, lightheadedness, or current SOB but has had MULLEN. She denies any history of GI bleed but does have a history of diverticulosis. Progress Notes/Assess & Plan Date Seen 01/08/17 Time Seen by Provider: 09:45 Diagonsis/Assessment & Plan Patient doing well overall Unmotivated to work with PT and this is a chronic issue Restarted all of her home meds today No BM x 3 days so ordered meds today Needs disposition option for DC tomorrow either back to [place] with PT or NHP AFVSS, Pleasant, flat affect Irr Irr, CTAB No edema Laboratory Tests 01/08/17 09:27 (1) GI (gastrointestinal hemorrhage) Status: Acute Assessment & Plan: Surgery appreciated s/p EGD yesterday which revealed ulcer as source of bleed on anti-coagulation Advance diet Protonix, PO Carafate Hemoglobin up this AM 8.4, continue IV iron (2) Essential (primary) hypertension Status: Chronic Assessment & Plan: Relatively well controlled but trending up so restarted BP meds today (3) Chronic a-fib Assessment & Plan: Taken off eliquis 01/04 and ASA on 01/02 and will continue to hold until f/u outpt but high risk for CVA from PAF Rate controlled Cards consulted, appreciate recs (4) Weakness generalized Assessment & Plan: PT/OT consulted Will consult for discharge planning as well Came from [facility] and possibly needs NHP? (5) Prediabetes Status: Chronic Assessment & Plan: Restart Metformin today Will add SSI A if needed (6) Depression Assessment & Plan: Restarted home meds today (7) Insomnia Status: Chronic Assessment & Plan: Trazodone (8) Prophylactic measure Assessment & Plan: SCDs only due to GI bleed Plan: PT/OT DC tomorrow to [place] or NHP Diagnosis/Problems Diagnosis/Problems (1) GI (gastrointestinal hemorrhage) Status: Acute Assessment & Plan: Surgery consulted, appreciate recs Plan for EGD this AM NPO IV Protonix, PO Carafate Hemoglobin up this AM, continue IV iron (2) Essential (primary) hypertension Status: Chronic Assessment & Plan: Relatively well controlled but trending up, will likely need to restart BP meds after scope (3) Chronic a-fib Assessment & Plan: taken off eliquis 01/04 and ASA on 01/02 Rate controlled Cards consulted, appreciate recs (4) Weakness generalized Assessment & Plan: PT/OT consulted Will consult Cm for discharge planning as well Came from [facility] (5) Prediabetes Status: Chronic Assessment & Plan: Hold Metformin while inpatient Will add SSI A if needed (6) Depression Assessment & Plan: Hold home meds while NPO (7) Insomnia Status: Chronic Assessment & Plan: trazodone (8) Prophylactic measure Assessment & Plan: SCDs only due to GI bleed 1/2 NS at 100ml/hr NPO for procedure transfer to floor after scope JEFFERSON HELTON DO Jan 08, 2017 10:00
[2017-01-08] MEDS ORDERED: POLYETHYLENE GLYCOL 17 GM (MIRALAX) PACK PO PRN (10:06)
--- NOTE | 2017-01-08 10:07 | Cardiology Progress Note ---
Subjective Date Seen by Provider: Jan 08, 2017 Time Seen by Provider: 08:20 Subjective/Events-last exam patient is sitting in a chair, apprehensive about her condition, denied any chest pain. No palpitation but feeling lightheaded and dizzy. No syncope Review of Systems General: No Chills, No Night Sweats, Fatigue, Malaise, No Appetite, No Other HEENT: No Head Aches, No Visual Changes, No Eye Pain, No Ear Pain, No Dysphasia , No Sinus Congestion, No Post Nasal Drip, No Sore Throat, No Other Pulmonary: No Dyspnea, No Cough, No Pleuritic Chest Pain, No Other Cardiovascular: Lt Headedness, No: Chest Pain, Palpitations, Orthopnea, Paroxysmal Noc. Dyspnea, Edema, Other Objective-Cardiology Exam Last Set of Vital Signs Vital Signs 01/06/17 01/08/17 01/08/17 03:20 08:25 09:00 Temp 97.3 Pulse 97 Resp 20 B/P (MAP) 122/69 Pulse Ox 99 O2 Delivery Room Air FiO2 21 Capillary Refill : I&O Intake and Output 01/09/17 00:00 Intake Total 250 ml Output Total 275 ml Balance -25 ml Intake Oral 250 ml Output Urine Total 275 ml # Voids 1 General: Alert, Oriented X3, Cooperative HEENT: Atraumatic, PERRLA Neck: Supple, No JVD, No Thyromegaly Lungs: Clear to Auscultation, Normal Air Movement Heart: Normal S1, Normal S2, Other (irregularly irregular) Abdomen: Normal Bowel Sounds, Soft Skin: No Rashes, No Significant Lesion Neuro: Normal Gait, Normal Speech Psych/Mental Status: Mental Status NL, Mood NL Results Lab Laboratory Tests 01/08/17 09:27 A/P-Cardiology Admission Diagnosis GI Bleed Persistent atrial fibrillation HTN UTI Assessment/Plan GI Bleed, PUD- unable to tolerate OAC at this time. Continue Protonix and Carafate, continue to monitor. Paroxysmal atrial fibrillation, appear to be persistent at this time, rate is controlled. Maintained on beta jameel. Eliquis was discontinued secondary to GI bleed. Continue to monitor. [id number] score is 5, yearly risk of stroke without oral anticoagulation is 6.7 percent. Unable to tolerate OAC at this time. Will need to restart at a later time once she is able to tolerate it. UTI- management per hospitalist services. Chronic pedal edema, Venous study showed mild valvular insufficiency in the small saphenous vein on the left side. No other abnormality on the right side. Continue with compression therapy at this point. Hypertension, controlled, continue to monitor blood pressure. Hyperlipidemia, controlled, continue to monitor. Coronary artery disease, cardiac catheterization was carried out in September 2009 showing tortuous left anterior descending artery system with mainly nonobstructive disease and normal left ventricular function. Continue on current medications and monitor Diabetes mellitus, followed and managed by primary care physician. History of left ventricular hypertrophy with mild diastolic dysfunction, asymptomatic at this time, continue to monitor Depression, anxiety. Obesity, BMI is 53. We discussed weight loss and exercise program. History of hysterectomy, diverticular surgery Nonobstructive carotid artery stenosis-last carotid duplex July 2015. Continue to monitor. Clinical Quality Measures DVT/VTE Risk/Contraindication: Risk Factor Score Per Nursin RFS Level Per Nursing on Admit: 4+=Very High Contraindications-Pharm: Other *list below* Other: GIB DVT/VTE Prophylaxis Comfirm.Dx Pharmacological not ordered: Other (GIB) TL JC MD Jan 08, 2017 10:07
[2017-01-08] MEDS: PANTOPRAZOLE 40 MG (PROTONIX) TAB PO SCH ×2 (10:11→20:51)
[2017-01-08 10:15] LABS: ALANINE AMINOTRANSFERASE 16 U/L (0-55); ALBUMIN 3.8 GM/DL (3.2-4.5); ANION GAP 9 MMOL/L (5-14); ASPARTATE AMINO TRANSFERASE 19 U/L (5-34); BILIRUBIN,TOTAL 0.5 MG/DL (0.1-1.0); BLOOD UREA NITROGEN 10 MG/DL (7-18); BUN/CREATININE RATIO 12; CALCIUM 8.2 MG/DL (8.5-10.1); CARBON DIOXIDE 24 MMOL/L (21-32); CHLORIDE 109 MMOL/L (98-107); CREATININE SERUM 0.82 MG/DL (0.60-1.30); GFR ESTIMATED > 60; GLUCOSE 186 MG/DL (70-105); POTASSIUM 3.1 MMOL/L (3.6-5.0); SODIUM 142 MMOL/L (135-145); TOTAL PROTEIN 6.6 GM/DL (6.4-8.2)
[2017-01-08] MEDS: OMEGA 3 (FISH OIL) 1000 MG CAP PO SCH (10:23)
[2017-01-08] MEDS: LACTULOSE SYRUP 10GM/15ML (ENULOSE) 30ML UDC PO SCH ×2 (10:24→20:50)
[2017-01-08] MEDS: RIVASTIGMINE 4.6 MG PATCH (EXELON) TD SCH (10:24)
[2017-01-08] MEDS: TOLTERODINE LA 2 MG (DETROL LA) CAP PO SCH (10:24)
[2017-01-08] MEDS: LOSARTAN 50 MG (COZAAR) TAB PO SCH (10:24)
[2017-01-08] MEDS: SENNA W/DOCUSATE (SENOKOT S) TABLET PO SCH ×2 (10:24→20:51)
[2017-01-08] MEDS: ATENOLOL 50 MG (TENORMIN) TAB PO SCH (10:28)
[2017-01-08] MEDS: TRIAMCINOLONE 0.1% CR (KENALOG) 15 GM TUBE TOP SCH ×2 (10:53→20:51)
[2017-01-08] MEDS: IRON SUCROSE INJECTION 300 MG in NS (IVPB) 250 ML IV SCH (10:54)
[2017-01-08] MEDS: MUPIROCIN 2% OINT 22 GM (BACTROBAN) TUBE TP SCH ×2 (10:54→20:52)
--- NOTE | 2017-01-08 11:29 | Physical Therapy Evaluation ---
PT Evaluation-General Medical Diagnosis Admission Date Jan 05, 2017 at 12:45 Medical Diagnosis: GI Bleed Onset Date: Jan 05, 2017 Therapy Diagnosis Therapy Diagnosis: generalized weakness/debility Height/Weight Height (Feet): 5 Height (Inches): 4.00 Weight (Pounds): 310 Weight (Ounces): 2.0 Precautions Precautions/Isolations: Fall Prevention, Standard Precautions Referral Physician: Randall Reason for Referral: Evaluation/Treatment Medical History Pertinent Medical History: Atrial Fib, DM, HTN Additional Medical History morbid obesity Current History very weak and tired Dark stool Reviewed History: Yes Social History Home: Assisted Living Prior/Core FIM Prior Level of Function Functional [place] Measure 0=Not Assessed/NA 4=Minimal Assistance 1=Total Assistance 5=Supervision or Setup 2=Maximal Assistance 6=Modified [place] 3=Moderate Assistance 7=Complete [place] Bed Mobility: 6 Transfers (B,C,W/C) (FIM): 6 Gait: 6 PT Evaluation-Current Subjective Patient agrees to PT. She states she is very tired. Pain Numeric Pain Scale: 0-No Pain Location: No Pain Reported Objective Patient Orientation: Normal For Age Problem Solving: Fair ROM/Strength ROM Lower Extremities bilateral LE WNL Strenght Lower Extremities 4/5 grossly bilateral LE Integumentary/Posture Integumentary refer to nursing notes Bowel Incontinence: No Bladder Incontinence: No Posture slight trunk flexed posture Neuromuscular (Tone, Coordination, Reflexes) grossly intact Sensory Vision: Functional Hearing: Functional Sensation Right Lower Extremit: Impaired Sensation Left Lower Extremity: Impaired Transfers Functional [place] Measure 0=Not Assessed/NA 4=Minimal Assistance 1=Total Assistance 5=Supervision or Setup 2=Maximal Assistance 6=Modified [place] 3=Moderate Assistance 7=Complete [place] Transfers (B, C, W/C) (FIM): 5 Scootin Rollin Supine to/from Sit: 5 Sit to/from Stand: 5 Gait Mode of Locomotion: Walk Anticipated Mode of Locomotion: Walk (5) Gait (FIM): 5 Distance (FIM): 3=150 ft Distance: 150' Gait Level of Assist: 5 Gait Persons Needed: 1 Gait Assistive Device: FWW Comments/Gait Description functional gait sequence/noted increase in SOA with minimal activity Balance Sitting Static: Normal Sitting Dynamic: Normal Standing Static: Normal Standing Dynamic: Normal Assessment/Needs 81 y.o. 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 Rehab Potential: Fair Post Rehab Potential-Barriers: compliance with exercise PT Long-Term Goals Long-Term Goals PT Labor Commissioner Goals Time Frame: Jan 12, 2017 Transfers (B,C,W/C) (FIM): 6 Gait (FIM): 6 Gait distance (FIM): 3=150 ft Gait Level of Assist: 6 Gait Assistive Device: FWW PT Plan Problem List Problem List: Activity Tolerance, Safety, Gait Treatment/Plan Treatment Plan: Continue Plan of Care Treatment Plan: Bed Mobility, Education, Functional Activity Maru, Functional Strength, Gait, Safety, Therapeutic Exercise, Transfers Treatment Duration: Jan 12, 2017 Frequency: 5 times per week Estimated Hrs Per Day: .25 hour per day Patient and/or Family Agrees t: Yes Safety Risks/Education Patient Education: Gait Training Teaching Recipient: Patient Teaching Methods: Demonstration, Discussion Response to Teaching: Return Demonstration, Reinforcement Needed Discharge Recommendations Therapy D/C Recommendations: Assisted Living, Physical Therapy Home Care Time/GCodes Time In: 1025 Time Out: 1040 Total Billed Treatment Time: 15 Total Billed Treatment 1 visit EVLowC 15 min G Codes Necessary: CORAL Sheehan PT Jan 08, 2017 11:29
[2017-01-08 12:00] VITALS: BP 104/64
--- NOTE | 2017-01-08 14:27 | Occupational Therapy Eval ---
OT Evaluation-General/PLF Medical Diagnosis Admission Date Jan 05, 2017 at 12:45 Medical Diagnosis: GI Bleed Onset Date: Jan 05, 2017 Therapy Diagnosis Therapy Diagnosis: decreased self care skills Height/Weight Height (Feet): 5 Height (Inches): 4.00 Weight (Pounds): 310 Weight (Ounces): 2.0 Precautions Precautions/Isolations: Fall Prevention, Standard Precautions Safety Interventions: None Referral Physician: Randall Medical History Pertinent Medical History: Atrial Fib, DM, HTN Additional Medical History depression, anxiety, partial colectomy, high cholesterol, diverticulitis, abdominal hernia, cataracts Reviewed History: Yes Social History Home: Assisted Living ADL-Prior Level of Function ADL PLOF Comments Pt states she receives assistance with bathing, but is able to complete other ADLs and transfers without assistance. Pt states she has been at [facility] for about 2 months. Ambulates with FWW. DME/Equipment: Grab Bars, Shower, Tall Toilet OT Current Status Subjective Pt sitting in chair, agrees to therapy. No c/o pain. Mental Status/Objective Patient Orientation: Person, Place Attachments: IV Current Glasses/Contacts: Yes Hearing Aids: No Dentures/Partials: Yes Hand Dominance: Left Upper Extremity ROM Grossly WFL Upper Extremity Coordination Intact Upper Extremity Strength Grossly 4/5 ADL-Treatment ADL-Current Pt participated in UE assessment while seated in chair. Assisted pt to don socks. Pt sit to stand with SBA. Pt demonstrates ability to perform transfers with CGA. Pt states she has been feeding self without difficulty and no assistance required. Pt declined grooming tasks, states she will complete at a later time. Pt sitting in chair with needs met and visitor present after session. Functional [place] Measure 0=Not Assessed/NA 4=Minimal Assistance 1=Total Assistance 5=Supervision or Setup 2=Maximal Assistance 6=Modified [place] 3=Moderate Assistance 7=Complete IndependenceIRFPAI Quality Coding Scale 6 Independent with activity with or without an assistive device 5 Patient requires set up or clean up by helper. Patient completes activity by themselves 4 Supervision or touching assist (CGA). [place] provide cues , steadying assist 3 The helper provides less than half the effort to complete the activity 2 The helper provides more than half the effort to complete the activity 1 Dependent. The helper does all the effort to complete an activity 7 Patient refused to complete or attempt activity 9 The patient did not perform the activity before the current illness or injury 88 Not attempted due to Medical conditions or safety concerns Eating (FIM): 6 (Pt reports feeding self and managing containers without assistance) OT Short Term Goals Short Term Goals 1=Demonstrate adherence to instructed precautions during ADL tasks. 2=Patient will verbalize/demonstrate understanding of assistive devices/ modifications for ADL. 3=Patient will improve strength/tolerance for activity to enable patient to perform ADL's. OT Audio Visual Collections Coordinator Goals Long-Term Goals Time Frame: Jan 15, 2017 Grooming(FIM): 6 Bathing(FIM): 4 Upper Body Dressing(FIM): 5 Lower Body Dressing(FIM): 5 Toileting(FIM): 6 Toilet/Commode Transfer(FIM): 6 Additional Goals: 2-Verbalize Understanding, 3-ImproveStrength/Maru 1=Demonstrate adherence to instructed precautions during ADL tasks. 2=Patient will verbalize/demonstrate understanding of assistive devices/ modifications for ADL. 3=Patient will improve strength/tolerance for activity to enable patient to perform ADL's. OT Education/Plan Problem List/Assessment Assessment: Decreased Activ Tolerance, Decreased UE Strength, Dependent Transfers, Impaired Self-Care Skills Pt to benefit from skilled OT intervention for ADL training, transfers, strengthening, and safety education to improve level of independence and allow safe discharge plan. Discharge Recommendations Plan/Recommendations: Continue POC Treatment Plan/Plan of Care Treatment,Training & Education: Yes Patient would benefit from OT for education, treatment and training to promote independence in ADL's, mobility, safety and/or upper extremity function for ADL' s. Plan of Care: ADL Retraining, Functional Mobility, UE Funct Exercise/Act Treatment Duration: Jan 15, 2017 Frequency: 5 times per week Estimated Hrs Per Day: .25 hour per day Rehab Potential: Fair Time/GCodes Start Time: 11:25 Stop Time: 11:40 Total Time Billed (hr/min): 15 Billed Treatment Time 1 visit, ELVIN(15minutes) BERYL OLSON OT Jan 08, 2017 14:27
[2017-01-08 15:10] VITALS: BP 103/68
[2017-01-08] MEDS: metFORMIN 500 MG (GLUCOPHAGE) TAB PO SCH (16:08)
[2017-01-08 19:13] VITALS: BP 103/63
[2017-01-08] MEDS ORDERED: SIMvastatin 10 MG (ZOCOR) TAB PO SCH (20:00)
[2017-01-08] MEDS: DULoxetine 30 MG (CYMBALTA) CAP PO SCH (20:51)
[2017-01-08] MEDS ORDERED: MELATONIN 3 MG TABLET PO SCH (21:00)
[2017-01-08] MEDS ORDERED: PHENAZOPYRIDINE 100 MG (PYRIDIUM) TABLET PO SCH (21:00)
[2017-01-08] MEDS ORDERED: HYDROcodone/APAP 7.5 MG/325 MG (LORTAB, LORCET PLUS) TABLET PO SCH (21:00)
[2017-01-09 00:25] VITALS: BP 120/59
[2017-01-09] MEDS: RT-ALBUTEROL SULF 2.5 MG/3 ML PRE-MIX VIAL IH SCH ×2 (02:18→09:43)
[2017-01-09 04:10] VITALS: BP 136/81
[2017-01-09] MEDS: SUCRALFATE 1 GM (CARAFATE) TAB PO SCH ×2 (06:01→11:39)
[2017-01-09] MEDS: metFORMIN 500 MG (GLUCOPHAGE) TAB PO SCH (06:01)
[2017-01-09] MEDS: OMEGA 3 (FISH OIL) 1000 MG CAP PO SCH (06:01)
[2017-01-09 06:11] LABS: BASOPHILS % (AUTO) 1 % (0-10); EOSINOPHILS # (AUTO) 0.1 10^3/uL (0.0-0.3); EOSINOPHILS % (AUTO) 2 % (0-10); LYMPHOCYTES # (AUTO) 2.4 X 10^3 (1.0-4.0); LYMPHOCYTES % (AUTO) 32 % (12-44); MEAN CORPUSCULAR HEMOGLOBIN 28 PG (25-34); MEAN CORPUSCULAR HGB CONC 30 G/DL (32-36); MEAN CORPUSCULAR VOLUME 94 FL (80-99); MEAN PLATELET VOLUME 10.2 FL (7.4-10.4); MONOCYTES % (AUTO) 13 % (0-12); NEUTROPHILS # (AUTO) 3.8 X 10^3 (1.8-7.8); NEUTROPHILS % (AUTO) 52 % (42-75); PLATELET COUNT 324 10^3/uL (130-400); RED BLOOD COUNT 2.68 10^6/uL (4.35-5.85); WHITE BLOOD COUNT 7.3 10^3/uL (4.3-11.0)
[2017-01-09 06:22] LABS: ALBUMIN 3.4 GM/DL (3.2-4.5); BILIRUBIN,TOTAL 0.5 MG/DL (0.1-1.0); CALCIUM 8.1 MG/DL (8.5-10.1); CREATININE SERUM 1.19 MG/DL (0.60-1.30); POTASSIUM 3.2 MMOL/L (3.6-5.0); TOTAL PROTEIN 5.9 GM/DL (6.4-8.2)
[2017-01-09 08:00] VITALS: BP 127/58
--- NOTE | 2017-01-09 08:31 | Cardiology Progress Note ---
Subjective Date Seen by Provider: Jan 09, 2017 Time Seen by Provider: 08:27 Subjective/Events-last exam Patient sitting up in bed. No new complaints. Denies any CP or dyspnea. Objective-Cardiology Exam Last Set of Vital Signs Vital Signs 01/06/17 01/09/17 01/09/17 03:20 04:10 08:00 Temp 98.4 Pulse 70 Resp 18 B/P (MAP) 136/81 Pulse Ox 97 O2 Delivery Room Air FiO2 21 Capillary Refill : I&O Intake and Output 01/10/17 00:00 Intake Total 100 ml Output Total 200 ml Balance -100 ml Intake Oral 100 ml Output Urine Total 200 ml General: Alert, Oriented X3, Cooperative HEENT: Atraumatic, PERRLA Neck: Supple, No JVD, No Thyromegaly Lungs: Clear to Auscultation, Normal Air Movement Heart: Normal S1, Normal S2, Other (irregularly irregular) Abdomen: Normal Bowel Sounds, Soft Skin: No Rashes, No Significant Lesion Neuro: Normal Gait, Normal Speech Psych/Mental Status: Mental Status NL, Mood NL Results Lab Laboratory Tests 01/08/17 09:27 01/09/17 06:00 A/P-Cardiology Admission Diagnosis GI Bleed Persistent atrial fibrillation HTN UTI Assessment/Plan GI Bleed, PUD- unable to tolerate OAC at this time. Continue Protonix and Carafate, continue to monitor. Paroxysmal atrial fibrillation, appear to be persistent at this time, rate is controlled. Maintained on beta jameel. Eliquis was discontinued secondary to GI bleed. Continue to monitor. [id number] score is 5, yearly risk of stroke without oral anticoagulation is 6.7 percent. Unable to tolerate OAC at this time. Will need to restart at a later time once she is able to tolerate it. UTI- management per hospitalist services. Chronic pedal edema, Venous study showed mild valvular insufficiency in the small saphenous vein on the left side. No other abnormality on the right side. Continue with compression therapy at this point. Hypertension, controlled, continue to monitor blood pressure. Hyperlipidemia, controlled, continue to monitor. Hypokalemia- replace and continue to monitor. Coronary artery disease, cardiac catheterization was carried out in September 2009 showing tortuous left anterior descending artery system with mainly nonobstructive disease and normal left ventricular function. Continue on current medications and monitor Diabetes mellitus, followed and managed by primary care physician. History of left ventricular hypertrophy with mild diastolic dysfunction, asymptomatic at this time, continue to monitor Depression, anxiety. Obesity, BMI is 53. We discussed weight loss and exercise program. History of hysterectomy, diverticular surgery Nonobstructive carotid artery stenosis-last carotid duplex July 2015. Continue to monitor. Clinical Quality Measures DVT/VTE Risk/Contraindication: Risk Factor Score Per Nursin RFS Level Per Nursing on Admit: 4+=Very High Contraindications-Pharm: Other *list below* Other: GIB DVT/VTE Prophylaxis Comfirm.Dx Pharmacological not ordered: Other (GIB) TRISH BRAMBILA Jan 09, 2017 08:30
--- NOTE | 2017-01-09 08:44 | Cardiology Progress Note ---
Subjective Date Seen by Provider: Jan 09, 2017 Time Seen by Provider: 08:43 Subjective/Events-last exam Patient is laying down in bed, feeling better. Denied any chest pain or shortness of breath. Review of Systems General: No Chills, No Night Sweats, No Fatigue, No Malaise, No Appetite, No Other HEENT: No Head Aches, No Visual Changes, No Eye Pain, No Ear Pain, No Dysphasia , No Sinus Congestion, No Post Nasal Drip, No Sore Throat, No Other Pulmonary: No Dyspnea, No Cough, No Pleuritic Chest Pain, No Other Cardiovascular: No: Chest Pain, Palpitations, Orthopnea, Paroxysmal Noc. Dyspnea, Edema, Lt Headedness, Other Objective-Cardiology Exam Last Set of Vital Signs Vital Signs 01/06/17 03:20 FiO2 21 Capillary Refill : I&O Intake and Output 01/10/17 00:00 Intake Total 100 ml Output Total 200 ml Balance -100 ml Intake Oral 100 ml Output Urine Total 200 ml General: Alert, Oriented X3, Cooperative HEENT: Atraumatic, PERRLA Neck: Supple, No JVD, No Thyromegaly Lungs: Clear to Auscultation, Normal Air Movement Heart: Normal S1, Normal S2, Other (irregularly irregular) Abdomen: Normal Bowel Sounds, Soft Skin: No Rashes, No Significant Lesion Neuro: Normal Gait, Normal Speech Psych/Mental Status: Mental Status NL, Mood NL Results Lab Laboratory Tests 01/08/17 09:27 01/09/17 06:00 A/P-Cardiology Admission Diagnosis GI Bleed Persistent atrial fibrillation HTN UTI Assessment/Plan GI Bleed, PUD- unable to tolerate OAC at this time. Continue Protonix and Carafate, continue to monitor. Paroxysmal atrial fibrillation, appear to be persistent at this time, rate is controlled. Maintained on beta jameel. Eliquis was discontinued secondary to GI bleed. Continue to monitor. [id number]-SXXh score is 5, yearly risk of stroke without oral anticoagulation is 6.7 percent. Unable to tolerate OAC at this time. Will need to restart at a later time once she is able to tolerate it. UTI- management per hospitalist services. Chronic pedal edema, Venous study showed mild valvular insufficiency in the small saphenous vein on the left side. No other abnormality on the right side. Continue with compression therapy at this point. Hypertension, controlled, continue to monitor blood pressure. Hyperlipidemia, controlled, continue to monitor. Hypokalemia- replace and continue to monitor. Coronary artery disease, cardiac catheterization was carried out in September 2009 showing tortuous left anterior descending artery system with mainly nonobstructive disease and normal left ventricular function. Continue on current medications and monitor Diabetes mellitus, followed and managed by primary care physician. History of left ventricular hypertrophy with mild diastolic dysfunction, asymptomatic at this time, continue to monitor Depression, anxiety. Obesity, BMI is 53. We discussed weight loss and exercise program. History of hysterectomy, diverticular surgery Nonobstructive carotid artery stenosis-last carotid duplex July 2015. Continue to monitor. Clinical Quality Measures DVT/VTE Risk/Contraindication: Risk Factor Score Per Nursin RFS Level Per Nursing on Admit: 4+=Very High Contraindications-Pharm: Other *list below* Other: GIB DVT/VTE Prophylaxis Comfirm.Dx Pharmacological not ordered: Other (GIB) TL JC MD Jan 09, 2017 08:44
[2017-01-09] MEDS ORDERED: RIVASTIGMINE PATCH REMOVAL TP SCH (08:59)
[2017-01-09] MEDS ORDERED: ATENOLOL 50 MG (TENORMIN) TAB PO SCH (09:00)
[2017-01-09] MEDS ORDERED: amLODIPine 5 MG (NORVASC) TAB PO SCH (09:00)
[2017-01-09] MEDS: LACTULOSE SYRUP 10GM/15ML (ENULOSE) 30ML UDC PO SCH (09:03)
[2017-01-09] MEDS: RIVASTIGMINE 4.6 MG PATCH (EXELON) TD SCH (09:03)
[2017-01-09] MEDS: LOSARTAN 50 MG (COZAAR) TAB PO SCH (09:04)
[2017-01-09] MEDS: DULoxetine 30 MG (CYMBALTA) CAP PO SCH (09:04)
[2017-01-09] MEDS: TOLTERODINE LA 2 MG (DETROL LA) CAP PO SCH (09:04)
[2017-01-09] MEDS: SENNA W/DOCUSATE (SENOKOT S) TABLET PO SCH (09:04)
[2017-01-09] MEDS: TRIAMCINOLONE 0.1% CR (KENALOG) 15 GM TUBE TOP SCH (09:05)
[2017-01-09] MEDS ORDERED: FERR324T PO (09:06)
[2017-01-09] MEDS ORDERED: SENN-20 PO (09:06)
[2017-01-09] MEDS ORDERED: SUCR1TAB PO (09:06)
[2017-01-09] MEDS ORDERED: PANT40TA3 PO (09:06)
[2017-01-09] MEDS: MUPIROCIN 2% OINT 22 GM (BACTROBAN) TUBE TP SCH (09:06)
[2017-01-09] MEDS ORDERED: LACT20SO2 PO (09:06)
[2017-01-09] MEDS: PANTOPRAZOLE 40 MG (PROTONIX) TAB PO SCH (09:07)
--- NOTE | 2017-01-09 09:08 | D/C HH Face to Face Order ---
D/C Face to Face Orders Instructions for Patient Patient Instructions/FollowUp: Dr Helton 01/15/17 at 1:15pm [place] office Physician to follow Patient: Dr Gita Helton Discharge Diet for Home: ADA Diet, Cardiac Diet Patient Problems: Ulcer bleed Severe anemia of iron def AF DM HTN Patient Data-Allergies,Ht & Wt Patient Allergies: Coded Allergies: No Known Drug Allergies (Unverified , 02/14/10) Height (Feet): 5 Height (Inches): 4.00 Weight (Pounds): 313 Weight (Ounces): 7.0 Home Health Need/Face to Face Date of Face to Face: Jan 09, 2017 Clinical Findings: Generalized weakness and fatigue, Shortness of breath I have seen Pt [id number]-xsif: Yes Discharged To: Home Diagnosis/Conditions: Ulcer bleed Severe anemia of iron def AF DM HTN Problems/Diagnosis/Condition: Patient is Homebound due to: Sarah fall risk due to instabilty, Muscle weakness Homebound Status Due to the above stated illness, injury or surgical procedure (medical condition or diagnosis) and associated clinical findings, the patient is homebound because of his/her inability to leave home except with aid of a supportive device and/or person AND leaving the home requires a considerable and taxing effort or is medically contraindicated. Pt req the following assistanc: [facility] Nursing Orders Home Health Services Order: Nursing Services, [place] Operator-Evaluate & Treat, Physical Therapy-Evaluate & Treat Home Health Infusion Therapy Line Type: PICC Site Location: Arm-Upper Certify Stmt I certify that this patient is under my care and that I, a nurse practitioner or a physician; a graduate assistant working with me, had a face to face encounter that - meets the physician face to face encounter requirements with this patient as dated. GITA HELTON DO Jan 09, 2017 09:08
--- NOTE | 2017-01-09 09:09 | Discharge Summary-Hospitalist ---
Diagnosis/Chief Complaint Date of Admission Jan 05, 2017 at 12:45 Date of Discharge Discharge Date: Jan 09, 2017 Admission Diagnosis GI Bleed Discharge Diagnosis Patient doing well overall Unmotivated to work with PT and this is a chronic issue Restarted all of her home meds today No BM x 3 days so ordered meds today Needs disposition option for DC tomorrow either back to [place] with PT or NHP AFVSS, [place], flat affect Irr Irr, CTAB No edema Laboratory Tests 01/08/17 09:27 (1) GI (gastrointestinal hemorrhage) Status: Acute Assessment & Plan: Surgery appreciated s/p EGD yesterday which revealed ulcer as source of bleed on anti-coagulation Advance diet Protonix, PO Carafate Hemoglobin up this AM 8.4, continue IV iron (2) Essential (primary) hypertension Status: Chronic Assessment & Plan: Relatively well controlled but trending up so restarted BP meds today (3) Chronic a-fib Assessment & Plan: Taken off eliquis 01/04 and ASA on 01/02 and will continue to hold until f/u outpt but high risk for CVA from PAF Rate controlled Cards consulted, appreciate recs (4) Weakness generalized Assessment & Plan: PT/OT consulted Will consult for discharge planning as well [facility]? (5) Prediabetes Status: Chronic Assessment & Plan: Restart Metformin today Will add SSI A if needed (6) Depression Assessment & Plan: Restarted home meds today (7) Insomnia Status: Chronic Assessment & Plan: Trazodone (8) Prophylactic measure Assessment & Plan: SCDs only due to GI bleed Plan: PT/OT DC tomorrow to AL or IDP (1) GI (gastrointestinal hemorrhage) Onset Date: ~ 01/05/2017 Status: Resolved Assessment & Plan: Surgery consulted, appreciate recs Plan for EGD this AM NPO IV Protonix, PO Carafate Hemoglobin up this AM, continue IV iron (2) Essential (primary) hypertension Status: Chronic Assessment & Plan: Relatively well controlled but trending up, will likely need to restart BP meds after scope (3) Chronic a-fib Status: Chronic Assessment & Plan: taken off eliquis 01/04 and ASA on 01/02 Rate controlled Cards consulted, appreciate recs (4) Weakness generalized Status: Acute Assessment & Plan: PT/OT consulted Will consult Cm for discharge planning as well Came from [facility] (5) Prediabetes Status: Chronic Assessment & Plan: Hold Metformin while inpatient Will add SSI A if needed (6) Depression Status: Chronic Assessment & Plan: Hold home meds while NPO (7) Insomnia Status: Chronic Assessment & Plan: trazodone (8) Prophylactic measure Status: Resolved Assessment & Plan: SCDs only due to GI bleed 1/2 NS at 100ml/hr NPO for procedure transfer to floor after scope Discharge Summary Discharge Physical Examination Allergies: Coded Allergies: No Known Drug Allergies (Unverified , 02/14/10) Vitals & I&Os Vital Signs Date Time Temp Pulse Resp B/P (MAP) Pulse Ox O2 Delivery O2 Flow Rate FiO2 01/09/17 14:26 63 18 113/58 98 Room Air 01/09/17 12:00 96.0 01/06/17 03:20 21 Hospital Course Hospital course: patient had a standard hospital course. She was directly admitted to [facility] due to presumed UGIB w/anemia of 8.0 down from nl 13.5 while living at [facility] and began having report of melena. Eliquis and ASA were both stopped along with NSAID therapy during in-pt stay and although she is very high risk for CVA from AF per Dr Salas we will hold it for now until f/ u outpt and decide if benefits outweigh the risks to resume it in the future. Hgb was maintained at 7.8 without blood transfusions by which she was supportive of only IV iron administration and replenish naturally instead of transfusions. Severe constipation was resolved at time of DC but bowel regimen was maintained at time of DC. Overall prognosis guarded since she is so debilitated chronically and morbid obesity that cannot be improved. All DC meds rechecked. Labs (last 24 hrs) Microbiology 01/05/17 Urine Culture - Final, Complete Escherichia Coli Pending Labs Discharge Home Medications: Active Scripts Active Senna-Time S Tablet (Sennosides/Docusate Sodium) 1 Each Tablet 2 Ea PO BID Ferrous Gluconate 324 Mg Tablet 324 Mg PO DAILY Pantoprazole Sodium 40 Mg Tablet.dr 40 Mg PO BID Sucralfate 1 Gm Tablet 1 Gm PO ACHS Lactulose 20 Gm/30 Ml Solution 10 Gm PO BID Reported Hydrocodon-Acetaminoph 7.5-325 (Hydrocodone/Acetaminophen) 1 Each Tablet 1 Tab PO TID PRN Trazodone HCl 50 Mg Tablet 50 Mg PO HS PRN Atenolol 50 Mg Tablet 50 Mg PO DAILY HOLD FOR SBP<120 Mupirocin 22 Gm Oint...g. TP BID APPLY SMALL AMOUNT TOPICALLY TO 4TH WEB SPACE OF RT FOOT Fish Oil 1,000 mg Softgel (Harwood-3 Fatty Acids/Fish Oil) 1 Each Capsule 1,000 Mg PO DAILY Polyethylene Glycol 3350 255 Gm Powder 17 Gm PO DAILY PRN Tolterodine Tartrate 2 Mg Tablet 2 Mg PO BID Vitamin D3 (Cholecalciferol (Vitamin D3)) 5,000 Unit Capsule 5,000 Units PO DAILY Duloxetine HCl 30 Mg Capsule.dr 30 Mg PO BID Phenazopyridine HCl 100 Mg Tablet 100 Mg PO HS Rivastigmine 1 Each Patch.td24 4.6 Mg TOP DAILY Simvastatin 10 Mg Tablet 10 Mg PO 1999 [facility] Multivitamin Tab (Multivit-Min/FA/Lycopene/Lut) 1 Each Tablet 1 Tab PO DAILY Melatonin 3 Mg Tablet 3 Mg PO HS Losartan Potassium 100 Mg Tablet 100 Mg PO DAILY HOLD FOR SBP<120 Metformin HCl 500 Mg Tablet 500 Mg PO BID Oyster Shell Calcium (Calcium Carbonate) 500 Mg Tablet 500 Mg PO BID Triamcinolone Acetonide 0.1% Cream (Triamcinolone Acet) 15 Gm Cr TOP BID Amlodipine Besylate 5 Mg Tablet 5 Mg PO DAILY Hydrocodon-Acetaminoph 7.5-325 (Hydrocodone/Acetaminophen) 1 Each Tablet 0.5 Tab PO HS Instructions to patient/family Please see electronic discharge instructions given to patient. Clinical Quality Measures DVT/VTE Risk/Contraindication: Risk Factor Score Per Nursin RFS Level Per Nursing on Admit: 4+=Very High Contraindications-Pharm: Other *list below* Other: GIB DVT/VTE Prophylaxis Comfirm.Dx Pharmacological not ordered: Other (GIB) Problem Qualifiers (1) GI (gastrointestinal hemorrhage): GI bleed type/associated pathology: gastric ulcer Qualified Codes: K25.4 - Chronic or unspecified gastric ulcer with hemorrhage (2) Depression: Depression Type: reactive depression Qualified Codes: F32.9 - Major depressive disorder, single episode, unspecified JEFFERSON VILLAGOMEZ DO Jan 09, 2017 09:09
[2017-01-09] MEDS ORDERED: FLEET ENEMA ADULT 1 EA BTL PR NR (09:15)
[2017-01-09] MEDS: BISACODYL 10 MG SUPP (DULCOLAX) PR NR ×2 (09:49→10:10)
[2017-01-09] MEDS ORDERED: KCL 20 MEQ TAB (K-DUR) PO NR (11:15)
--- NOTE | 2017-01-09 11:55 | Physical Therapy Daily Note ---
PT Daily Note-Current Subjective Patient is in better spirits and agrees to PT. She reports she is going home on this date. Pain Numeric Pain Scale: 0-No Pain Location: No Pain Reported Mental Status Patient Orientation: Normal For Age Transfers Functional [place] Measure 0=Not Assessed/NA 4=Minimal Assistance 1=Total Assistance 5=Supervision or Setup 2=Maximal Assistance 6=Modified [place] 3=Moderate Assistance 7=Complete IndependenceIRFPAI Quality Coding Scale 6 Independent with activity with or without an assistive device 5 Patient requires set up or clean up by helper. Patient completes activity by themselves 4 Supervision or touching assist (CGA). [place] provide cues , steadying assist 3 The helper provides less than half the effort to complete the activity 2 The helper provides more than half the effort to complete the activity 1 Dependent. The helper does all the effort to complete an activity 7 Patient refused to complete or attempt activity 9 The patient did not perform the activity before the current illness or injury 88 Not attempted due to Medical conditions or safety concerns Transfers (B, C, W/C) (FIM): 6 Scootin Rollin Supine to/from Sit: 6 Sit to/from Stand: 6 Gait Training Gait (FIM): 6 Distance (FIM): 3=150 ft Distance: 150' Gait Level of Assist: 6 Gait Assistive Device: FWW safe and functional with FWW Assessment Current Status: Excellent Progress PT Field Health Officer Goals Field Health Officer Goals PT Mcc Goals Time Frame: Jan 12, 2017 Transfers (B,C,W/C) (FIM): 6 Gait (FIM): 6 Gait distance (FIM): 3=150 ft Gait Level of Assist: 6 Gait Assistive Device: FWW PT Plan Treatment/Plan Treatment Plan: Discontinue PT, goals met Treatment Plan: Bed Mobility, Education, Functional Activity Maru, Functional Strength, Gait, Safety, Therapeutic Exercise, Transfers Treatment Duration: Jan 12, 2017 Frequency: 5 times per week Estimated Hrs Per Day: .25 hour per day Patient and/or Family Agrees t: Yes Time/GCodes Time In: 1026 Time Out: 1041 Total Billed Treatment Time: 15 Total Billed Treatment 1 visit GT 15 min CORAL WOLF PT Jan 09, 2017 11:55
[2017-01-09 12:00] VITALS: BP 113/58
[2017-01-09 14:26] VITALS: BP 113/58
== END 2017-01-09 14:26 | disposition home health service (06) | DRG 378 ==
LOC: ICU 12:45 → 4TH 01-07 11:47
PROVIDERS: ADMIT Family Medicine; ATTEND Family Medicine
PROC: 0DB78ZX Excision of Stomach, Pylorus, Via Natural or Artificial Opening Endoscopic, Diagnostic (ICD-10-PCS; 2017-01-07)
PROC: 0DB48ZX Excision of Esophagogastric Junction, Via Natural or Artificial Opening Endoscopic, Diagnostic (ICD-10-PCS; principal; 2017-01-07 10:35)
DX: K25.4 Chronic or unspecified gastric ulcer with hemorrhage (principal); K29.70 Gastritis, unspecified, without bleeding; K21.0 Gastro-esophageal reflux disease with esophagitis; K44.9 Diaphragmatic hernia without obstruction or gangrene; I48.1 Persistent atrial fibrillation; N39.0 Urinary tract infection, site not specified; E66.9 Obesity, unspecified; Z68.43 Body mass index [BMI] 50.0-59.9, adult; Z66 Do not resuscitate; I10 Essential (primary) hypertension; E78.00 Pure hypercholesterolemia, unspecified; R60.0 Localized edema; I87.2 Venous insufficiency (chronic) (peripheral); R73.03 Prediabetes; G47.00 Insomnia, unspecified; F41.9 Anxiety disorder, unspecified; F32.9 Major depressive disorder, single episode, unspecified; K57.90 Diverticulosis of intestine, part unspecified, without perforation or abscess without bleeding; E87.6 Hypokalemia; M19.91 Primary osteoarthritis, unspecified site; Z79.01 Long term (current) use of anticoagulants; Z90.49 Acquired absence of other specified parts of digestive tract; Z79.84 Long term (current) use of oral hypoglycemic drugs; Z87.891 Personal history of nicotine dependence
CPT/HCPCS: 36415; 36569; 71010; 76937; 80048; 80053; 81000; 83605; 83880; 84484; 85018; 85025; 85027; 85610; 86850; 86900; 86901; 87077; 87088; 87186; 93005; 94640; 94760

== ENCOUNTER → 2017-01-22 | Outpatient (CLI) | payer MEDICARE, OTHER ==
[~2017-01-22] MED LIST changes: +ATEN50TA PO; +CALC500T34 PO; +CHOL5000 PO; +DULO30CA48 PO; +FA/M1TAB28 PO; +FERR324T PO; +IBUP-1773 PO; +LACT20SO2 PO; +LOSA100T28 PO; +MELA3TAB PO; +METF500T4 PO; +MUPI22OI2 TP; +OMEG-77 PO; +PANT40TA3 PO; +PHEN-826 PO; +POLY255P PO; +RIVA1PAT11 TOP; +SENN-20 PO; +SIMV10TA3 PO; +SUCR1TAB PO; +TOLT2TAB5 PO; +TR1C15 TOP; +TRAZ-28 PO
== END ==
LOC: CARD 08:44
PROVIDERS: ATTEND Internal Medicine Cardiovascular Disease
DX: I48.0 Paroxysmal atrial fibrillation (principal); I25.10 Atherosclerotic heart disease of native coronary artery without angina pectoris; I11.9 Hypertensive heart disease without heart failure; E78.2 Mixed hyperlipidemia
CPT/HCPCS: 93306

== ENCOUNTER → 2017-01-29 | Outpatient (CLI) | payer MEDICARE, OTHER ==
--- NOTE | 2017-01-29 12:21 | Diagnostic Imaging Report ---
EXAMINATION: Bilateral lower extremity duplex venous ultrasound. TECHNIQUE: DVT protocol. Multiple sonographic images with color Doppler and waveform interrogation were performed of the lower extremity veins, bilaterally, with compression and augmentation maneuvers. INDICATION: Bilateral leg swelling. FINDINGS: The lower extremity veins from the common femoral veins to below the knee veins were examined with normal color-flow, compressibility and normal waveform demonstrated. The great saphenous vein bilaterally is patent. Please note that this is a somewhat difficult exam due to the large size of the patient. The distal superficial femoral vein could not be evaluated with compression. Also, there is very limited evaluation of the infrapopliteal veins. IMPRESSION: No definite evidence of DVT in either lower extremity. The study is somewhat difficult due to the large patient body habitus. Dictated by: Dictated on workstation # [id number]
== END ==
LOC: RAD 11:37
PROVIDERS: ATTEND Internal Medicine Critical Care Medicine
DX: R22.43 Localized swelling, mass and lump, lower limb, bilateral (principal); R09.02 Hypoxemia; R06.00 Dyspnea, unspecified; I48.0 Paroxysmal atrial fibrillation
CPT/HCPCS: 93970

== ENCOUNTER → 2017-02-01 | Outpatient (CLI) | payer MEDICARE, OTHER ==
[2017-02-01 12:21] LABS: ABG BASE EXCESS 3.1 MMOL/L (-2.5-2.5); ABG HCO3 26 MMOL/L (23-27); ABG OXYGEN SATURATION 99 % (94-100); ABG PCO2 32 MMHG (35-45); ABG PH 7.52 (7.37-7.43); ABG PO2 114 MMHG (79-93); ABG TCO2 27.2 MMOL/L (21.0-31.0)
[2017-02-01 12:22] LABS: ALLENS TEST YES-POS; PATIENT TEMP 96.8
[2017-02-01 12:24] LABS: MEAN PLATELET VOLUME 9.7 FL (7.4-10.4); RED BLOOD COUNT 3.25 10^6/uL (4.35-5.85); RED CELL DISTRIBUTION WIDTH 16.5 % (10.0-14.5); WHITE BLOOD COUNT 7.1 10^3/uL (4.3-11.0)
[2017-02-01 12:49] LABS: CALCIUM 9.3 MG/DL (8.5-10.1); CREATININE SERUM 0.9 MG/DL (0.60-1.30); POTASSIUM 3.4 MMOL/L (3.6-5.0)
== END ==
LOC: LAB 12:04
PROVIDERS: ATTEND Nurse Practitioner Family
DX: R09.02 Hypoxemia (principal)
CPT/HCPCS: 36415; 80048; 82805; 83880; 85027

== ENCOUNTER 2018-07-08 06:14 | Outpatient (CLI) | payer MEDICARE, OTHER ==
[~2018-07-08] VITALS: Ht 162.6 cm; Wt 142.2 kg
[~2018-07-08 06:14] MED LIST changes: -AMLO5TAB2 PO; +AMLO5TAB9 PO; +HYDR-34 PO; -HYDR-3816 PO; -LOSA100T28 PO; +LOSA100T57 PO; -LOSA50TA36; +LOSA50TA63; +METF-397 PO; -METF500T4 PO; -POLY255P PO; +POLY255P16 PO; +TRAZ-189 PO; -TRAZ-28 PO
[2018-07-08] MEDS ORDERED: POTA-51 PO (13:02)
[2018-07-08] MEDS ORDERED: FURO40TA4 PO (13:02)
[2018-07-08] MEDS ORDERED: APIX5TAB PO (13:02)
[2018-07-08] MEDS ORDERED: SENN-181 PO (13:02)
== END 2018-07-08 13:11 | disposition home or self-care (01) ==
LOC: PREOP 06:14
PROVIDERS: ATTEND Surgery
DX: Z01.818 Encounter for other preprocedural examination (principal)

== ENCOUNTER 2018-07-12 12:32 | Day surgery (SDC) | payer MEDICARE, OTHER ==
[~2018-07-12] VITALS: Ht 162.6 cm; Wt 142.2 kg
[~2018-07-12 12:32] MED LIST changes: +FURO40TA4 PO; +POTA-51 PO; +SENN-181 PO
--- OUTSIDE RECORDS SUMMARY | 2018-07-12 12:41 | XMS REPORT | Continuity of Care Document ---
Author Author [facility] Organization [facility] Address Unknown Phone Unavailable Allergies Active Description Code Type Severity Reaction Onset Reported/Identified Relationship to Patient Clinical Status Yes NO KNOWN DRUG ALLERGIES UNKNOWN NO KNOWN DRUG ALLERG Yes No Known Drug Allergies [id number] Drug Allergy Unknown N/A 02/14/2010 Medications Medication Packaging Start Date Stop Date Route Dosage Sig LOSARTAN TAB 25 MG (COZAAR) MG 01/201710/23/2016 ONCE&1755 NORMAL SALINE 1000CC IV BAG INJ 0.9 % (NS 1000CC IV BAG) ml 10/23/2016 11/07/2016 CONTINUOUSEVERY 0 Hour MUPIROCIN OINT 2 % (BACTROBAN) jenifer 10/23/2016 11/02/2016 BID&0800,2000 HYDROCODONE/APAP 7.5/325 TAB (COLIN-TAB 7.5/325) Dose(s) 10/23/2016 11/02/2016 PRN TID ALPRAZOLAM TAB 0.25 MG (XANAX) Dose(s) 10/23/2016 11/02/2016 PRN BID SIMVASTATIN TAB 10 MG (ZOCOR) Dose(s) 10/23/2016 10/29/2016 QPM&2000 LOSARTAN TAB 25 MG (COZAAR) Dose(s) 10/23/2016 10/29/2016 QHS&2000 METFORMIN TAB 500 MG (GLUCOPHAGE) Dose(s) 10/23/2016 10/30/2016 BID&0800,2000 ATENOLOL TAB 50 MG (TENORMIN) Dose(s) 10/23/2016 11/21/2016 QPM&2000 FAMOTIDINE IV PREMIX BAG INJ 20 MG/50CC (PEPCID IV PREMIX BAG) MG 10/23/2016 10/30/2016 BID&0800,2000 CEFTRIAXONE PREMIX IV BAG IV 1 GM/50CC (ROCEPHIN PREMIX IV BAG) GM 10/23/2016 10/30/2016 Daily&0900 APIXABAN TAB 5 MG (ELIQUIS) MG 01/201710/30/2016 BID&08,1999 ZOLPIDEM TAB 5 MG (AMBIEN) Dose(s) 10/23/2016 10/30/2016 PRN QHS INSULIN ASPART PEN INJ 100 UNITS/CC (NOVOLOG FLEXPEN) 10/23/2016 11/22/2016 ACHS&0630,1130,1630,2100 LOSARTAN TAB 25 MG (COZAAR) Dose(s) 10/24/2016 10/30/2016 Daily&0900 ASA 81MG ENTERIC COATED TAB 81 MG (BABY ASPIRIN EC) MG 10/24/2016 10/30/2016 Daily&0900 AMLODIPINE TAB 5 MG (NORVASC) Dose(s) 10/24/2016 10/30/2016 Daily&0900 DULOXETINE CAP 30 MG (CYMBALTA) Dose(s) 10/24/2016 10/30/2016 Daily&0900 ATENOLOL TAB 50 MG (TENORMIN) Dose(s) 10/24/2016 11/22/2016 Daily&0900 FISH OIL CAP CAP 1000 MG (OMEGA 3) Dose(s) 10/24/2016 10/30/2016 Daily&0900 IBUPROFEN TAB 600 MG (MOTRIN) MG 11/23/2016 PRN Q6H CALMOSEPTINE OINT TUBE (RISAMINE OINT) jenifer 10/24/2016 10/31/2016 PRN QID POLYETHYLENE GLYCOL POWDER UD PWD (MIRALAX 17GM UNIT DOSE PAKS) gm 10/24/2016 11/23/2016 PRN Q3H HYDROCODONE/APAP 7.5/325 TAB (COLIN-TAB 7.5/325) TAB 10/24/2016 11/23/2016 PRN TID ALUM/MAG/SIMETH 30CC LIQ (MYLANTA PLUS) cc 10/24/2016 11/03/2016 PRN Q4H MUPIROCIN OINT 2 % (BACTROBAN) jenifer 10/24/2016 11/23/2016 BID&0800,1999 SIMVASTATIN TAB 10 MG (ZOCOR) MG 11/22/2016 QPM&2000 LOSARTAN TAB 25 MG (COZAAR) Dose(s) 10/24/2016 10/30/2016 QHS&2000 METFORMIN TAB 500 MG (GLUCOPHAGE) MG 10/24/2016 11/23/2016 BID&08,1999 ATENOLOL TAB 50 MG (TENORMIN) MG 11/22/2016 QPM&1999 CALCIUM 500MG TAB 500 MG (OSCAL) MG 10/24/2016 10/31/2016 BID&08,1999 MILK OF RANJITH NEUMANNQ ml 10/24/2016 10/31/2016 PRN BID APIXABAN TAB 5 MG (ELIQUIS) MG 02/201711/23/2016 BID&0800,1999 LOSARTAN TAB 25 MG (COZAAR) MG 02/201711/22/2016 QHS&2100 MELATONIN TAB 3 MG (MELATONIN) MG 10/24/2016 11/22/2016 QHS&2099 TRAZODONE TAB 50 MG (DESYREL) MG 11/23/2016 PRN QHS AMOX-CLAV 875/125 TAB 875 MG-125MG (AUGMENTIN) TAB 10/25/2016 10/31/2016 BID&08,1999 CALMOSEPTINE OINT TUBE (RISAMINE OINT) jenifer 10/25/2016 11/23/2016 BID&0800,1999 DULOXETINE CAP 30 MG (CYMBALTA) MG 10/25/2016 11/23/2016 BID&08,1999 ASA 81MG ENTERIC COATED TAB 81 MG (BABY ASPIRIN EC) MG 10/25/2016 11/23/2016 Daily&0900 AMLODIPINE TAB 5 MG (NORVASC) MG 11/23/2016 Daily&0900 Vitamin D-3 5,000 units oral capsule UNITS 10/25/2016 11/23/2016 Daily&0900 FISH OIL CAP CAP 1000 MG (OMEGA 3) MG 10/25/2016 11/23/2016 Daily&0900 Rivastigmine TD Patch 24 hour 4.6mg (EXELON) MG 10/25/2016 11/03/2016 Daily&0900 MULTIVITAMIN CHEWS TAB (POLY VITAMIN CHEWS) tab 10/25/2016 11/23/2016 Daily&0900 LOSARTAN TAB 25 MG (COZAAR) MG 03/201710/31/2016 QPM&1900 ATENOLOL TAB 50 MG (TENORMIN) MG 11/23/2016 QPM&1900 CALMOSEPTINE OINT TUBE (RISAMINE OINT) jenifer 10/25/2016 11/24/2016 BID&0800,1999 DULOXETINE CAP 30 MG (CYMBALTA) MG 10/26/2016 11/24/2016 BID&0800,1999 PHENAZOPYRIDINE TAB 100 MG (PYRIDIUM) MG 10/29/2016 11/05/2016 PRN QHS TRIAMCINOLONE CRM CRM 0.1 % (ARISTOCORT CRM) jenifer 10/31/2016 11/09/2016 BID&0800,1999 CALCIUM 500MG TAB 500 MG (OSCAL) Dose(s) 10/31/2016 11/30/2016 BID&0800,1999 LOSARTAN TAB 25 MG (COZAAR) MG 11/30/2016 QPM&1900 CALMOSEPTINE OINT TUBE (RISAMINE OINT) jenifer 11/05/2016 12/05/2016 PRN QID PHENAZOPYRIDINE TAB 100 MG (PYRIDIUM) MG 11/06/2016 11/12/2016 QHS&2100 Problems Date Dx Coded Attending Type Code [...] JC MD Ot 272.4 HYPERLIPIDEMIA NEC/NOS 04/01/2014 HOSEA CHAVEZ, TL Mary Ot 401.9 HYPERTENSION NOS 04/01/2014 TL JC MD Ot 414.00 CORON ATHEROSCLER NOS TYPE VESSEL, NATIV 04/04/2014 HELTON DO, JEFFERSON Ot 250.02 04/04/2014 HELTON DO, JEFFERSON Ot 272.0 04/04/2014 HELTON DO, JEFFERSON Ot 401.1 04/04/2014 HELTON DO, JEFFERSON Ot V58.69 04/22/2014 HELTON DO, JEFFERSON Ot 250.02 04/22/2014 HELTON DO, JEFFERSON Ot 272.0 04/22/2014 HELTON DO, JEFFERSON Ot 401.1 04/22/2014 HELTON DO, JEFFERSON Ot V58.69 10/08/2014 HELTON DO, JEFFERSON Ot 250.02 10/08/2014 HELTON DO, JEFFERSON Ot 272.0 10/08/2014 HELTON DO, JEFFERSON Ot 401.1 10/08/2014 HELTON DO, JEFFERSON Ot 427.31 10/08/2014 HELTON DO, JEFFERSON Ot V58.69 10/08/2014 HELTON DO, JEFFERSON Ot V70.0 01/22/2015 Ot 272.0 [...] Ot 250.00 01/22/2015 Ot 272.0 01/22/2015 ABEBE QUINTANILLAP Ot 272.4 01/22/2015 ABEBE QUINTANILLA DUPLICATE MAKER Ot 401.9 01/22/2015 HELTON DO, JEFFERSON Ot 250.02 01/22/2015 HELTON DO, JEFFERSON Ot 300.00 01/22/2015 HELTON DO, JEFFERSON Ot 695.3 01/22/2015 HELTON DO, JEFFERSON Ot 708.9 01/22/2015 HELTON DO, JEFFERSON Ot 719.46 01/22/2015 HELTON DO, JEFFERSON Ot 722.10 01/22/2015 HELTON DO, JEFFERSON Ot 786.59 01/22/2015 HELTON DO, JEFFERSON Ot 793.81 01/22/2015 HELTON DO, JEFFERSON Ot V72.62 01/22/2015 HELTON DO, JEFFERSON Ot V76.12 01/22/2015 ABEBE QUINTANILLA DUPLICATE MAKER Ot 397.0 01/22/2015 ABEBE QUINTANILLAP Ot 401.9 01/22/2015 ABEBE QUINTANILLAP Ot 424.0 01/22/2015 QUINTANILLA ABEBE Teofilo DUPLICATE MAKER Ot 428.30 01/22/2015 ABEBE QUINTANILLA DUPLICATE MAKER Ot 429.3 01/22/2015 HELTON DO, JEFFERSON Ot 250.02 01/22/2015 HELTON DO, JEFFERSON Ot 272.0 01/22/2015 HELTON DO, JEFFERSON Ot 300.00 01/22/2015 HELTON DO, JEFFERSON Ot 401.1 01/22/2015 HELTON DO, JEFFERSON Ot 695.3 01/22/2015 HELTON DO, JEFFERSON Ot 782.3 01/22/2015 HELTON DO, JEFFERSON Ot 783.1 01/22/2015 HELTON DO, JEFFERSON Ot 250.02 01/22/2015 HELTON DO, JEFFERSON Ot 268.9 01/22/2015 HELTON DO, JEFFERSON Ot 272.0 01/22/2015 HELTON DO, JEFFERSON Ot 300.00 01/22/2015 HELTON DO, JEFFERSON Ot 401.1 01/22/2015 HELTON DO, JEFFERSON Ot 695.3 01/22/2015 HELTON DO, JEFFERSON Ot 782.3 01/22/2015 HELTON DO, JEFFERSON Ot 783.1 01/22/2015 HELTON DO, JEFFERSON Ot 250.02 01/22/2015 HELTON DO, JEFFERSON Ot 272.0 01/22/2015 HELTON DO, JEFFERSON Ot 401.1 01/22/2015 HELTON DO, JEFFERSON Ot 783.1 01/22/2015 HELTON DO, JEFFERSON Ot V58.69 01/22/2015 HELTON DO, JEFFERSON Ot 250.02 01/22/2015 HELTON DO, JEFFERSON Ot 268.9 01/22/2015 HELTON DO, JEFFERSON Ot 272.0 01/22/2015 HELTON DO, JEFFERSON Ot 401.1 01/22/2015 HELTON DO, JEFFERSON Ot V58.69 01/22/2015 HELTON DO, JEFFERSON Ot V76.12 01/22/2015 HELTON DO, JEFFERSON Ot 250.02 01/22/2015 HELTON DO, JEFFERSON Ot 272.0 01/22/2015 HELTON DO, JEFFERSON Ot 401.1 01/22/2015 HELTON DO, JEFFERSON Ot V58.69 01/22/2015 HOSEA CHAVEZ, TL Mary Ot 250.00 01/22/2015 HOSEA CHAVEZ, TL Mary Ot 272.4 01/22/2015 HOSEA CHAVEZ, TL Mary Ot 401.9 01/22/2015 HOSEA CHAVEZ, TL Mary Ot 414.00 01/22/2015 HELTON DO, JEFFERSON Ot 250.02 01/22/2015 HELTON DO, JEFFERSON Ot 272.0 01/22/2015 HELTON DO, JEFFERSON Ot 401.1 01/22/2015 HELTON DO, JEFFERSON Ot 427.31 01/22/2015 HELTON DO, JEFFERSON Ot V58.69 01/22/2015 HELTON DO, JEFFERSON Ot V70.0 02/11/2015 HELTON DO, JEFFERSON Ot Z12.31 03/24/2015 Ot E11.65 [...] ROMAN MD Ot Y92.[address] IN UNSP NON-INSTITUT (PRIVATE 04/22/2015 СВЕТЛАНА ROMAN MD Ot Y99.8 OTHER [...] TY 03/17/2016 Ot 272.0 PURE HYPERCHOLESTEROLEM 03/17/2016 ABEBE QUINTANILLA DUPLICATE MAKER Ot 272.4 HYPERLIPIDEMIA NEC/NOS 03/17/2016 QUINTANILLAABEBE COOL DUPLICATE MAKER Ot 401.9 HYPERTENSION NOS 03/17/2016 SUNITHA MARES JEFFERSON Ot 250.02 DIAB JESUS WO COMPL, TYPE II OR UNSPEC TY 03/17/2016 SUNITHA MARES JEFFERSON Ot 300.00 ANXIETY STATE NOS 03/17/2016 SUNITHA MARES JEFFERSON Ot 695.3 ROSACEA 03/17/2016 SUNITHA MARES JEFFERSON Ot 708.9 URTICARIA NOS 03/17/2016 SUNITHA MARES JEFFERSON Ot 719.46 JOINT PAIN-L/LEG 03/17/2016 SUNITHA MARES JEFFERSON Ot 722.10 LUMBAR DISC DISPLACEMENT 03/17/2016 JEFFERSON HELTON DO Ot 786.59 CHEST PAIN NEC 03/17/2016 KAM HELTON DOI Ot 793.81 MAMMOGRAPHIC MICROCLACIFICATION 03/17/2016 JEFFERSON HELTON DO Ot V72.62 LAB EXAM ORDERED PART OF A ROUTINE GE 03/17/2016 JEFFERSON HELTON DO Ot V76.12 OTH SCREEN MAMMO-MALIGN NEOPLASM OF [place] 03/17/2016 ABEBE QUINTANILLA DUPLICATE MAKER Ot 397.0 TRICUSPID VALVE DISEASE 03/17/2016 ABEBE QUINTANILLA DUPLICATE MAKER Ot 401.9 HYPERTENSION NOS 03/17/2016 ABEBE QUINTANILLA DUPLICATE MAKER Ot 424.0 MITRAL VALVE DISORDER 03/17/2016 ABEBE QUINTANILLA DUPLICATE MAKER Ot 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 03/17/2016 ABEBE QUINTANILLA DUPLICATE MAKER Ot 429.3 CARDIOMEGALY 03/17/2016 HELTON DO, JEFFERSON Ot 250.02 DIAB JESUS WO COMPL, TYPE II OR UNSPEC TY 03/17/2016 HELTON DO, JEFFERSON Ot 272.0 PURE HYPERCHOLESTEROLEM 03/17/2016 HELTON DO, JEFFERSON Ot 300.00 ANXIETY STATE NOS 03/17/2016 HELTON DO, JEFFERSON Ot 401.1 BENIGN HYPERTENSION 03/17/2016 HELTON DO, JEFFERSON Ot 695.3 ROSACEA 03/17/2016 HELTON DO, JEFFERSON Ot 782.3 EDEMA 03/17/2016 HELTON DO, JEFFERSON Ot 783.1 ABNORMAL WEIGHT GAIN 03/17/2016 HELTON DO, JEFFERSON Ot 250.02 DIAB JESUS WO COMPL, TYPE II OR UNSPEC TY 03/17/2016 HELTON DO, JEFFERSON Ot 268.9 VITAMIN D DEFICIENCY NOS 03/17/2016 HELTON DO, JEFFERSON Ot 272.0 PURE HYPERCHOLESTEROLEM 03/17/2016 HELTON DO, JEFFERSON Ot 300.00 ANXIETY STATE NOS 03/17/2016 HELTON DO, JEFFERSON Ot 401.1 BENIGN HYPERTENSION 03/17/2016 HELTON DO, JEFFERSON Ot 695.3 ROSACEA 03/17/2016 HELTON DO, JEFFERSON Ot 782.3 EDEMA 03/17/2016 HELTON DO, JEFFERSON Ot 783.1 ABNORMAL WEIGHT GAIN 03/17/2016 HELTON DO, JEFFERSON Ot 250.02 DIAB JESUS WO COMPL, TYPE II OR UNSPEC TY 03/17/2016 HELTON DO, JEFFERSON Ot 272.0 PURE HYPERCHOLESTEROLEM 03/17/2016 HELTON DO, JEFFERSON Ot 401.1 BENIGN HYPERTENSION 03/17/2016 HELTON DO, JEFFERSON Ot 783.1 ABNORMAL WEIGHT GAIN 03/17/2016 HELTON DO, JEFFERSON Ot V58.69 OT MED,LT,CURRENT USE 03/17/2016 HELTON DO, JEFFERSON Ot 250.02 DIAB JESUS WO COMPL, TYPE II OR UNSPEC TY 03/17/2016 HELTON DO, JEFFERSON Ot 268.9 VITAMIN D DEFICIENCY NOS 03/17/2016 HELTON DO, JEFFERSON Ot 272.0 PURE HYPERCHOLESTEROLEM 03/17/2016 HELTON DO, JEFFERSON Ot 401.1 BENIGN HYPERTENSION 03/17/2016 HELTON DO JEFFERSON Ot V58.69 OTH MED,LT,CURRENT USE 03/17/2016 HELTON DO, JEFFERSON Ot V76.12 OTH SCREEN MAMMO-MALIGN NEOPLASM OF [place] 03/17/2016 HELTON DO, JEFFERSON Ot 250.02 DIAB JESUS WO COMPL, TYPE II OR UNSPEC TY 03/17/2016 HELTON DO, JEFFERSON Ot 272.0 PURE HYPERCHOLESTEROLEM 03/17/2016 HELTON DO, JEFFERSON Ot 401.1 BENIGN HYPERTENSION 03/17/2016 HELTON DO, JEFFERSON Ot V58.69 OTH MED,LT,CURRENT USE 03/17/2016 LT JC MD Ot 250.00 DIAB JEUSS WO COMPL, TYPE II OR UNSPEC TY 03/17/2016 TL JC MD Ot 272.4 HYPERLIPIDEMIA NEC/NOS 03/17/2016 TL JC MD Ot 401.9 HYPERTENSION NOS 03/17/2016 TL JC MD Ot 414.00 CORON ATHEROSCLER NOS TYPE VESSEL, NATIV 03/17/2016 TRISH COLLINS Ot E78.5 HYPERLIPIDEMIA, UNSPECIFIED 03/17/2016 TRISH COLLINS Ot I10 ESSENTIAL (PRIMARY) HYPERTENSION 03/17/2016 TRISH COLLINS Ot I25.10 ATHSCL HEART DISEASE OF [place] CORONARY 03/17/2016 TRISH COLLINS Ot I48.91 UNSPECIFIED ATRIAL FIBRILLATION 03/17/2016 SUNITHA DO, JEFFERSON Ot 250.02 DIAB JESUS WO COMPL, TYPE II OR UNSPEC TY 03/17/2016 HELTON DO, JEFFERSON Ot 272.0 PURE HYPERCHOLESTEROLEM 03/17/2016 HELTON DO, JEFFERSON Ot 401.1 BENIGN HYPERTENSION 03/17/2016 HELTON DO, JEFFERSON Ot 427.31 ATRIAL FIBRILLATION 03/17/2016 HELTON DO JEFFERSON Ot V58.69 OTH MED,LT,CURRENT USE 03/17/2016 HELTON DO, JEFFERSON Ot V70.0 ROUTINE MEDICAL EXAM 03/17/2016 SUNITHA MARES JEFFERSON Ot Z12.31 ENCNTR SCREEN MAMMOGRAM FOR MALIGNANT NE 03/17/2016 Ot E11.65 TYPE 2 DIABETES MELLITUS WITH HYPERGLYCE 03/17/2016 Ot E55.9 VITAMIN D DEFICIENCY, UNSPECIFIED 03/17/2016 Ot E78.0 PURE HYPERCHOLESTEROLEMIA 03/17/2016 Ot E78.1 PURE HYPERGLYCERIDEMIA 03/17/2016 Ot Z00.00 ENCNTR FOR GENERAL ADULT MEDICAL EXAM W/ 03/17/2016 HELTON DO, JEFFERSON Ot 250.02 DIAB JESUS WO COMPL, TYPE II OR UNSPEC TY 03/17/2016 HELTON DO, JEFFERSON Ot 272.0 PURE HYPERCHOLESTEROLEM 03/17/2016 HELTON DO, JEFFERSON Ot 401.1 BENIGN HYPERTENSION 03/17/2016 SUNITHA DO JEFFERSON Ot V58.69 OT MED,LT,CURRENT USE 03/17/2016 HOSEA CHAVEZ, TL Mary Ot 250.00 DIAB JESUS WO COMPL, TYPE II OR UNSPEC TY 03/17/2016 TL JC MD Ot 272.4 HYPERLIPIDEMIA NEC/NOS 03/17/2016 HOSEA CHAVEZ, TL J Ot 401.9 HYPERTENSION NOS 03/17/2016 TL JC MD Ot 414.00 CORON ATHEROSCLER NOS TYPE VESSEL, NATIV 03/17/2016 TRISH COLLINS Ot E78.5 HYPERLIPIDEMIA, UNSPECIFIED 03/17/2016 TRISH COLLINS Ot I10 ESSENTIAL (PRIMARY) HYPERTENSION 03/17/2016 TRISH COLLINS Ot I25.10 ATHSCL HEART DISEASE OF [place] CORONARY 03/17/2016 TRISH COLLINS Ot I48.91 UNSPECIFIED ATRIAL FIBRILLATION 03/17/2016 SUNITHA DO JEFFERSON Ot 250.02 DIAB JESUS WO COMPL, TYPE II OR UNSPEC TY 03/17/2016 HETLON DO, JEFFERSON Ot 272.0 PURE HYPERCHOLESTEROLEM 03/17/2016 SUNITHA DO, JEFFERSON Ot 401.1 BENIGN HYPERTENSION 03/17/2016 SUNITHA DO JEFFERSON Ot 427.31 ATRIAL FIBRILLATION 03/17/2016 SUNITHA DO JEFFERSON Ot V58.69 OTH MED,LT,CURRENT USE 03/17/2016 SUNITHA DO JEFFERSON Ot V70.0 ROUTINE MEDICAL EXAM 03/17/2016 JEFFERSON HELTON DO Ot Z12.31 ENCNTR SCREEN MAMMOGRAM FOR [...] STATUS 03/17/2016 СВЕТЛАНА ROMAN MD Ot Z79.82 SENIOR CARE (CURRENT) USE OF ASPIRIN 03/17/2016 СВЕТЛАНА ROMAN MD Ot Z79.84 FORENSIC TECHNICIAN (CURRENT) USE OF ORAL HYPOGLYC 03/17/2016 СВЕТЛАНА ROMAN MD, Ot Z79.899 OTHER FORENSIC TECHNICIAN (CURRENT) DRUG THERAPY 04/22/2016 YAZMIN BLACKMAN 719.41 PAIN IN JOINT INVOLVING SHOULDER REGION 04/22/2016 YAZMIN BLACKMAN 780.79 OTHER MALAISE AND FATIGUE 04/22/2016 YAZMIN BLACKMAN M25.511 PAIN IN RIGHT SHOULDER 04/22/2016 YAZMIN BLACKMAN R53.1 WEAKNESS 05/02/2016 YAZMIN BLACKMAN 296.33 MAJOR DEPRESSIVE DISORDER, RECURRENT EPISODE, SEVERE DEGREE, WITHOUT MENTION OF PSYCHOTIC BEHAVIOR 05/02/2016 YAZMIN BLACKMAN F33.2 MAJOR DEPRESSV DISORDER, RECURRENT SEVERE W/O PSYCH FEATURES 10/21/2016 VIJAY OSUNA DO Ot E11.9 TYPE 2 DIABETES MELLITUS WITHOUT [...] INITIAL 10/21/2016 VIJAY OSUNA DO, Ot Z79.82 FORENSIC TECHNICIAN (CURRENT) USE OF ASPIRIN 10/21/2016 VIJAY OSUNA DO, Ot Z79.84 SENIOR CARE (CURRENT) USE OF ORAL HYPOGLYC 10/21/2016 VIJAY OSUNA DO, Ot Z90.49 ACQUIRED ABSENCE OF OTHER SPECIFIED PART 10/22/2016 JEFFERSON HELTON DO Ot 250.02 DIAB JESUS WO COMPL, TYPE II OR UNSPEC TY 10/22/2016 JEFFERSON HELTON DO Ot 272.0 PURE HYPERCHOLESTEROLEM 10/22/2016 JEFFERSON HELTON DO Ot 401.1 BENIGN HYPERTENSION 10/22/2016 JEFFERSON HELTON DO Ot V58.69 OT MED,LT,CURRENT USE 10/22/2016 [...] COLLINS Ot I10 ESSENTIAL (PRIMARY) HYPERTENSION 10/22/2016 PRINCE[place]BR[place] PA, TRISH K Ot I25.10 ATHSCL HEART DISEASE OF [place] CORONARY 10/22/2016 TRISH COLLINS Ot I48.91 UNSPECIFIED ATRIAL FIBRILLATION 10/22/2016 JEFFERSON HELTON DO Ot 250.02 DIAB JESUS WO COMPL, TYPE II OR UNSPEC TY 10/22/2016 JEFFERSON HELTON DO Ot 272.0 PURE HYPERCHOLESTEROLEM 10/22/2016 KAM HELTON DOI Ot 401.1 BENIGN HYPERTENSION 10/22/2016 JEFFERSON HELTON DO Ot 427.31 ATRIAL FIBRILLATION 10/22/2016 JEFFERSON HELTON DO Ot V58.69 OTH MED,LT,CURRENT USE 10/22/2016 JEFFERSON HELTON DO Ot V70.0 ROUTINE MEDICAL EXAM 10/22/2016 JEFFERSON HELTON DO Ot Z12.31 ENCNTR SCREEN MAMMOGRAM FOR MALIGNANT NE 10/22/2016 Ot E11.65 TYPE 2 DIABETES MELLITUS WITH HYPERGLYCE 10/22/2016 Ot E55.9 VITAMIN D DEFICIENCY, UNSPECIFIED 10/22/2016 Ot E78.0 PURE HYPERCHOLESTEROLEMIA 10/22/2016 Ot E78.1 PURE HYPERGLYCERIDEMIA 10/22/2016 Ot Z00.00 ENCNTR FOR GENERAL ADULT MEDICAL EXAM W10/23/2016 Jefferson Helton W 272.4 10/23/2016 Jefferson Helton W 278.01 MORBID OBESITY 10/23/2016 Jefferson Helton W 296.20 MAJOR DEPRESSIVE DISORDER, SINGLE EPISODE, UNSPECIFIED DEGREE 10/23/2016 Jefferson Helton W 300.00 ANXIETY STATE, UNSPECIFIED 10/23/2016 Jefferson Helton W 427.31 ATRIAL FIBRILLATION 10/23/2016 Jefferson Helton W 585.9 10/23/2016 Jefferson Helton W 682.3 10/23/2016 Jefferson Helton A 682.6 10/23/2016 Jefferson Helton W E66.01 MORBID (SEVERE) OBESITY DUE TO EXCESS CALORIES 10/23/2016 Jefferson Helton W E78.5 HYPERLIPIDEMIA, UNSPECIFIED 10/23/2016 Jefferson Helton W F32.9 MAJOR DEPRESSIVE DISORDER, SINGLE EPISODE, UNSPECIFIED 10/23/2016 Jefferson Helton W F41.9 ANXIETY DISORDER, UNSPECIFIED 10/23/2016 Jefferson Helton W I48.91 UNSPECIFIED ATRIAL FIBRILLATION 10/23/2016 Sunitha Jefferson A L03.115 CELLULITIS OF RIGHT LOWER LIMB 10/23/2016 HetlonKami W L03.119 CELLULITIS OF UNSPECIFIED PART OF LIMB 10/23/2016 SunithaKami W N18.9 CHRONIC KIDNEY DISEASE, UNSPECIFIED 10/24/2016 HeltonKami W 305.1 10/24/2016 HeltonKami W 584.9 10/24/2016 Jefferson Helton W 715.30 10/24/2016 Jefferson Helton W B95.61 10/24/2016 Helton, Jefferson W E11.9 10/24/2016 Helton, Jefferson W E55.9 10/24/2016 Sunitha Jefferson W E86.0 10/24/2016 Sunitha Jefferson W I10 10/24/2016 Sunitha Jefferson W I48.2 10/24/2016 Sunitha Jefferson W M19.90 10/24/2016 Sunitha Jefferson W N17.9 10/24/2016 Sunitha Jefferson W S91.311A 10/24/2016 Helton, Jefferson W S92.511A 10/24/2016 Helton, Jefferson W V58.61 10/24/2016 Sunitha Jefferson W Z72.0 TOBACCO USE 10/24/2016 Sunitha Jefferson W Z79.01 11/08/2016 YAZMIN BLACKMAN 041.11 11/08/2016 YAZMIN BLACKMAN 250.00 DIABETES MELLITUS WITHOUT MENTION OF COMPLICATION, TYPE II OR UNSPECIFIED TYPE, NOT STATED UNCONTROLLED 11/08/2016 YAZMIN BLACKMAN 268.9 11/08/2016 YAZMIN BLACKMAN 272.4 11/08/2016 YAZMIN BLACKMAN 278.01 MORBID OBESITY 11/08/2016 YAZMIN BLACKMAN 290.40 11/08/2016 YAZMIN BLACKMAN 401.0 11/08/2016 YAZMIN BLACKMAN 427.31 11/08/2016 YAZMIN BLACKMAN 459.89 OTHER SPECIFIED CIRCULATORY SYSTEM DISORDERS 11/08/2016 YAZMIN BLACKMAN 682.6 11/08/2016 YAZMIN BLACKMAN 826.0 11/08/2016 YAZMIN BLACKMAN B95.61 11/08/2016 YAZMIN BLACKMAN E11.9 TYPE 2 DIABETES MELLITUS WITHOUT COMPLICATIONS 11/08/2016 YAZMIN BLACKMAN E55.9 VITAMIN D DEFICIENCY, UNSPECIFIED 11/08/2016 YAZMIN BLACKMAN E66.01 MORBID (SEVERE) OBESITY DUE TO EXCESS CALORIES 11/08/2016 YAZMIN BLACKMAN E78.5 HYPERLIPIDEMIA, UNSPECIFIED 11/08/2016 YAZMIN BLACKMAN F01.50 11/08/2016 YAZMIN BLACKMAN F33.2 11/08/2016 YAZMIN BLACKMAN I10 ESSENTIAL (PRIMARY) HYPERTENSION 11/08/2016 YAZMIN BLACKMAN I48.0 PAROXYSMAL ATRIAL FIBRILLATION 11/08/2016 YEHUDA YAZMIN Shah I87.8 OTHER SPECIFIED DISORDERS OF VEINS 11/08/2016 YAZMIN BLACKMAN L03.115 11/08/2016 YAZMIN BLACKMAN S92.511A DISP FX OF PROXIMAL PHALANX OF RIGHT LESSER TOE(S), INIT 11/08/2016 YAZMIN BLACKMAN V58.61 LONG-TERM (CURRENT) USE OF ANTICOAGULANTS 11/08/2016 YAZMIN BLACKMAN Z79.01 SENIOR CARE (CURRENT) USE OF ANTICOAGULANTS 11/28/2016 YAZMIN BLACKMAN 296.23 MAJOR DEPRESSIVE DISORDER, SINGLE EPISODE, SEVERE DEGREE, WITHOUT MENTION OF PSYCHOTIC BEHAVIOR 11/28/2016 YEHUDA YAZMIN Red F32.2 MAJOR DEPRESSV DISORD, SINGLE EPSD, SEV W/O PSYCH FEATURES 01/09/2017 TRACY CHAVEZ, LESIA Hernández Ot E66.9 OBESITY, UNSPECIFIED 01/09/2017 LESIA MOLINA MD Ot E78.00 PURE HYPERCHOLESTEROLEMIA, UNSPECIFIED 01/09/2017 LESIA MOLINA MD Ot E87.6 HYPOKALEMIA 01/09/2017 LESIA MOLINA MD Ot F32.9 MAJOR DEPRESSIVE DISORDER, SINGLE EPISOD 01/09/2017 LESIA MOLINA MD Ot F41.9 ANXIETY DISORDER, UNSPECIFIED 01/09/2017 TRACY CHAVEZ, LESIA Hernández Ot G47.00 INSOMNIA, UNSPECIFIED 01/09/2017 LESIA MOLINA MD Ot I10 ESSENTIAL (PRIMARY) HYPERTENSION 01/09/2017 LESIA MOLINA MD Ot I48.1 PERSISTENT ATRIAL FIBRILLATION 01/09/2017 LESIA MOLINA MD Ot I87.2 VENOUS INSUFFICIENCY (CHRONIC) (PERIPHER 01/09/2017 LESIA MOLINA MD Ot K21.0 GASTRO-ESOPHAGEAL REFLUX DISEASE WITH ES 01/09/2017 LESIA MOLINA MD, Ot K21.9 GASTRO-ESOPHAGEAL REFLUX DISEASE WITHOUT 01/09/2017 LESIA MOLINA MD, Ot K25.4 CHRONIC OR UNSPECIFIED GASTRIC ULCER WIT 01/09/2017 LESIA MOLINA MD, Ot K29.70 GASTRITIS, UNSPECIFIED, WITHOUT BLEEDING 01/09/2017 LESIA MOLINA MD, Ot K44.9 DIAPHRAGMATIC HERNIA WITHOUT OBSTRUCTION 01/09/2017 LESIA MOLINA MD, Ot K57.90 DVRTCLOS OF INTEST, PART UNSP, W/O PERF 01/09/2017 LESIA MOLINA MD, Ot M19.91 PRIMARY OSTEOARTHRITIS, UNSPECIFIED SITE 01/09/2017 LESIA MOLINA MD, Ot N39.0 URINARY TRACT INFECTION, SITE NOT SPECIF 01/09/2017 LESIA MOLINA MD, Ot R60.0 LOCALIZED EDEMA 01/09/2017 LESIA MOLIAN MD, Ot R73.03 PREDIABETES 01/09/2017 LESIA MOLINA MD, Ot Z66 DO NOT RESUSCITATE 01/09/2017 LESIA MOLINA MD, Ot Z68.43 BODY MASS INDEX (BMI) 50-59.9 , ADULT 01/09/2017 LESIA MOLINA MD, Ot Z79.01 SENIOR CARE (CURRENT) USE OF ANTICOAGULANT 01/09/2017 LESIA MOLINA MD, Ot Z79.84 SENIOR CARE (CURRENT) USE OF ORAL HYPOGLYC 01/09/2017 LESIA MOLINA MD, Ot Z87.891 PERSONAL HISTORY OF NICOTINE DEPENDENCE 01/09/2017 LESIA MOLINA MD, Ot Z90.49 ACQUIRED ABSENCE OF OTHER SPECIFIED PART 01/09/2017 LESIA MOLINA MD, Ot E66.9 OBESITY, UNSPECIFIED 01/09/2017 LESIA MOLINA MD, Ot E78.00 PURE HYPERCHOLESTEROLEMIA, UNSPECIFIED 01/09/2017 LESIA MOLINA MD, Ot F32.9 MAJOR DEPRESSIVE DISORDER, SINGLE EPISOD 01/09/2017 LESIA MOLINA MD, Ot F41.9 ANXIETY DISORDER, UNSPECIFIED 01/09/2017 LESIA MOLINA MD, Ot G47.00 INSOMNIA, UNSPECIFIED 01/09/2017 TRACY MD, LESIA M Ot I10 ESSENTIAL (PRIMARY) HYPERTENSION 01/09/2017 LESIA MOLINA MD Ot I48.1 PERSISTENT ATRIAL FIBRILLATION 01/09/2017 LESIA MOLINA MD, Ot I87.2 VENOUS INSUFFICIENCY (CHRONIC) (PERIPHER 01/09/2017 LESIA MOLINA MD, Ot K21.0 GASTRO-ESOPHAGEAL REFLUX DISEASE WITH ES 01/09/2017 LESIA MOLINA MD, Ot K21.9 GASTRO-ESOPHAGEAL REFLUX DISEASE WITHOUT 01/09/2017 LESIA MOLINA MD Ot K25.4 CHRONIC OR UNSPECIFIED GASTRIC ULCER WIT 01/09/2017 LESIA MOLINA MD Ot K29.70 GASTRITIS, UNSPECIFIED, WITHOUT BLEEDING 01/09/2017 LESIA MOLINA MD, Ot K44.9 DIAPHRAGMATIC HERNIA WITHOUT OBSTRUCTION 01/09/2017 LESIA MOLINA MD, Ot K57.90 DVRTCLOS OF INTEST, PART UNSP, W/O PERF 01/09/2017 LESIA MOLINA MD, Ot M19.91 PRIMARY OSTEOARTHRITIS, UNSPECIFIED SITE 01/09/2017 LESIA MOLINA MD, Ot N39.0 URINARY TRACT INFECTION, SITE NOT SPECIF 01/09/2017 ELSIA MOLINA MD Ot R60.0 LOCALIZED EDEMA 01/09/2017 LESIA MOLINA MD, Ot R73.03 PREDIABETES 01/09/2017 LESIA MOLINA MD, Ot Z66 DO NOT RESUSCITATE 01/09/2017 LESIA MOLINA MD Ot Z68.43 BODY MASS INDEX (BMI) 50-59.9 , ADULT 01/09/2017 LESIA MOLINA MD Ot Z79.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 TECHNICIAN (CURRENT) USE OF ANTICOAGULANT 01/09/2017 LESIA MOLINA MD Ot Z79.84 SENIOR CARE (CURRENT) USE OF ORAL HYPOGLYC 01/09/2017 LESIA MOLINA MD Ot Z87.891 PERSONAL HISTORY OF NICOTINE DEPENDENCE 01/09/2017 LESIA MOLINA MD Ot Z90.49 ACQUIRED ABSENCE OF OTHER SPECIFIED PART 01/22/2017 Ot 250.00 DIAB JESUS WO COMPL, TYPE II OR UNSPEC TY 01/22/2017 Ot 272.0 PURE HYPERCHOLESTEROLEM 01/22/2017 Ot 401.1 BENIGN HYPERTENSION 01/22/2017 Ot 250.00 DIAB JESUS WO COMPL, TYPE II OR UNSPEC TY 01/22/2017 Ot 272.0 PURE HYPERCHOLESTEROLEM 01/22/2017 QUINTANILLAABEBE COOL DUPLICATE MAKER Ot 272.4 HYPERLIPIDEMIA NEC/NOS 01/22/2017 QUINTANILLAABEBE COOL DUPLICATE MAKER Ot 401.9 HYPERTENSION NOS 01/22/2017 HELTON DO, JEFFERSON Ot 250.02 DIAB JESUS WO COMPL, TYPE II OR UNSPEC TY 01/22/2017 HELTON DO, JEFFERSON Ot 300.00 ANXIETY STATE NOS 01/22/2017 HELTON DO, JEFFERSON Ot 695.3 ROSACEA 01/22/2017 HELTON DO, JEFFERSON Ot 708.9 URTICARIA NOS 01/22/2017 HELTON DO, JEFFERSON Ot 719.46 JOINT PAIN-L/LEG 01/22/2017 SUNITHA DO JEFFERSON Ot 722.10 LUMBAR DISC DISPLACEMENT 01/22/2017 SUNITHA MARES JEFFERSON Ot 786.59 CHEST PAIN NEC 01/22/2017 SUNITHA MARES JEFFERSON Ot 793.81 MAMMOGRAPHIC MICROCLACIFICATION 01/22/2017 SUNITHA MARES JEFFERSON Ot V72.62 LAB EXAM ORDERED PART OF A ROUTINE GE 01/22/2017 SUNITHA MARES JEFFERSON Ot V76.12 OTH SCREEN MAMMO-MALIGN NEOPLASM OF [place] 01/22/2017 ABEBE QUINTANILLA DUPLICATE MAKER Ot 397.0 TRICUSPID VALVE DISEASE 01/22/2017 ABEBE QUINTANILLA DUPLICATE MAKER Ot 401.9 HYPERTENSION NOS 01/22/2017 ABEBE QUINTANILLA DUPLICATE MAKER Ot 424.0 MITRAL VALVE DISORDER 01/22/2017 ABEBE QUINTANILLA DUPLICATE MAKER Ot 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 01/22/2017 ABEBE QUINTANILLA DUPLICATE MAKER Ot 429.3 CARDIOMEGALY 01/22/2017 SUNITHA DO JEFFERSON Ot 250.02 DIAB JESUS WO COMPL, TYPE II OR UNSPEC TY 01/22/2017 HELTON DO, JEFFERSON Ot 272.0 PURE HYPERCHOLESTEROLEM 01/22/2017 HELTON DO, JEFFERSON Ot 300.00 ANXIETY STATE NOS 01/22/2017 HELTON DO, JEFFERSON Ot 401.1 BENIGN HYPERTENSION 01/22/2017 HELTON DO, JEFFERSON Ot 695.3 ROSACEA 01/22/2017 HELTON DO, JEFFERSON Ot 782.3 EDEMA 01/22/2017 HELTON DO, JEFFERSON Ot 783.1 ABNORMAL WEIGHT GAIN 01/22/2017 HELTON DO, JEFFERSON Ot 250.02 DIAB JESUS WO COMPL, TYPE II OR UNSPEC TY 01/22/2017 HELTON DO, JEFFERSON Ot 268.9 VITAMIN D DEFICIENCY NOS 01/22/2017 HELTON DO, JEFFERSON Ot 272.0 PURE HYPERCHOLESTEROLEM 01/22/2017 HELTON DO, JEFFERSON Ot 300.00 ANXIETY STATE NOS 01/22/2017 HELTON DO, JEFFERSON Ot 401.1 BENIGN HYPERTENSION 01/22/2017 HELTON DO, JEFFERSON Ot 695.3 ROSACEA 01/22/2017 HELTON DO, JEFFERSON Ot 782.3 EDEMA 01/22/2017 HELTON DO, JEFFERSON Ot 783.1 ABNORMAL WEIGHT GAIN 01/22/2017 HELTON DO, JEFFERSON Ot 250.02 DIAB JESUS WO COMPL, TYPE II OR UNSPEC TY 01/22/2017 HELTON DO, JEFFERSON Ot 272.0 PURE HYPERCHOLESTEROLEM 01/22/2017 HELTON DO, JEFFERSON Ot 401.1 BENIGN HYPERTENSION 01/22/2017 HELTON DO, JEFFERSON Ot 783.1 ABNORMAL WEIGHT GAIN 01/22/2017 HELTON DO, JEFFERSON Ot V58.69 OTH MED,LT,CURRENT USE 01/22/2017 HELTON DO, JEFFERSON Ot 250.02 DIAB JSEUS WO COMPL, TYPE II OR UNSPEC TY 01/22/2017 HELTON DO, JEFFERSON Ot 268.9 VITAMIN D DEFICIENCY NOS 01/22/2017 HELTON DO, JEFFERSON Ot 272.0 PURE HYPERCHOLESTEROLEM 01/22/2017 HELTON DO, JEFFERSON Ot 401.1 BENIGN HYPERTENSION 01/22/2017 HELTON DO, JEFFERSON Ot V58.69 OTH MED,LT,CURRENT USE 01/22/2017 HELTON DO, JEFFERSON Ot V76.12 OTH SCREEN MAMMO-MALIGN NEOPLASM OF [place] 01/22/2017 HELTON DO, JEFFERSON Ot 250.02 DIAB JESUS WO COMPL, TYPE II OR UNSPEC TY 01/22/2017 HELTON DO, JEFFERSON Ot 272.0 PURE HYPERCHOLESTEROLEM 01/22/2017 HELTON DO, JEFFERSON Ot 401.1 BENIGN HYPERTENSION 01/22/2017 HELTON DO, JEFFERSON Ot V58.69 OTH MED,LT,CURRENT USE 01/22/2017 HOSEA CHAVEZ, BASHAR J Ot 250.00 DIAB JESUS WO COMPL, TYPE II OR UNSPEC TY 01/22/2017 TL JC MD Ot 272.4 HYPERLIPIDEMIA NEC/NOS 01/22/2017 TL JC MD Ot 401.9 HYPERTENSION NOS 01/22/2017 TL JC MD Ot 414.00 CORON ATHEROSCLER NOS TYPE VESSEL, NATIV 01/22/2017 TRISH COLLINS Ot E78.5 HYPERLIPIDEMIA, UNSPECIFIED 01/22/2017 TRISH COLLINS Ot I10 ESSENTIAL (PRIMARY) HYPERTENSION 01/22/2017 TRISH COLLINS Ot I25.10 ATHSCL HEART DISEASE OF [place] CORONARY 01/22/2017 TRISH COLLINS Ot I48.91 UNSPECIFIED ATRIAL FIBRILLATION 01/22/2017 JEFFERSON HELTON DO Ot 250.02 DIAB JESUS WO COMPL, TYPE II OR UNSPEC TY 01/22/2017 JEFFERSON HELTON DO Ot 272.0 PURE HYPERCHOLESTEROLEM 01/22/2017 JEFFERSON HELTON DO Ot 401.1 BENIGN HYPERTENSION 01/22/2017 JEFFERSON HELTON DO Ot 427.31 ATRIAL FIBRILLATION 01/22/2017 JEFFERSON HELTON DO Ot V58.69 OT MED,LT,CURRENT USE 01/22/2017 JEFFERSON HELTON DO Ot V70.0 ROUTINE MEDICAL EXAM 01/22/2017 JEFFERSON HELTON DO Ot Z12.31 ENCNTR SCREEN MAMMOGRAM FOR MALIGNANT NE 01/22/2017 Ot E11.65 TYPE 2 DIABETES MELLITUS WITH HYPERGLYCE 01/22/2017 Ot E55.9 VITAMIN D DEFICIENCY, UNSPECIFIED 01/22/2017 Ot E78.0 PURE HYPERCHOLESTEROLEMIA 01/22/2017 Ot E78.1 PURE HYPERGLYCERIDEMIA 01/22/2017 Ot Z00.00 ENCNTR FOR GENERAL ADULT MEDICAL EXAM W/ 01/23/2017 TL JC MD Ot E78.2 MIXED HYPERLIPIDEMIA 01/23/2017 TL JC MD Ot 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 01/23/2017 TL JC MD Ot I25.10 ATHSCL HEART DISEASE OF [place] CORONARY 01/23/2017 TL JC MD Ot I48.0 PAROXYSMAL ATRIAL FIBRILLATION 01/29/2017 KATI HERNANDEZ DO Ot M79.89 OTHER SPECIFIED SOFT TISSUE DISORDERS 01/29/2017 KATI HERNANDEZ DO Ot M79.89 OTHER SPECIFIED SOFT TISSUE DISORDERS 02/07/2017 LILO GARRIDO APRN Ot R09.02 HYPOXEMIA 02/13/2017 TL JC MD Ot E78.2 MIXED HYPERLIPIDEMIA 02/13/2017 TL JC MD Ot 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 02/13/2017 TL JC MD Ot I25.10 ATHSCL HEART DISEASE OF [place] CORONARY 02/13/2017 TL JC MD Ot I48.0 PAROXYSMAL ATRIAL FIBRILLATION 02/21/2017 AKTI HERNANDEZ DO Ot I48.0 PAROXYSMAL ATRIAL FIBRILLATION 02/21/2017 KATI HERNANDEZ DO Ot R06.00 DYSPNEA, UNSPECIFIED 02/21/2017 KATI HERNANDEZ DO Ot R09.02 HYPOXEMIA 02/21/2017 KATI HERNANDEZ DO Ot R22.43 LOCALIZED SWELLING, MASS AND LUMP, LOWER 02/26/2017 LILO GARRIDO APRN Ot R09.02 HYPOXEMIA 03/06/2017 TL JC MD Ot E78.2 MIXED HYPERLIPIDEMIA 03/06/2017 TL JC MD Ot 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 03/06/2017 TL JC MD Ot I25.10 ATHSCL HEART DISEASE OF [place] CORONARY 03/06/2017 TL JC MD Ot I48.0 PAROXYSMAL ATRIAL FIBRILLATION 03/06/2017 KATI HERNANDEZ DO Ot I48.0 PAROXYSMAL ATRIAL FIBRILLATION 03/06/2017 KATI HERNANDEZ DO Ot R06.00 DYSPNEA, UNSPECIFIED 03/06/2017 KATI HERNANDEZ DO Ot R09.02 HYPOXEMIA 03/06/2017 KATI HERNANDEZ DO Ot R22.43 LOCALIZED SWELLING, MASS AND LUMP, LOWER 04/02/2017 JEFFERSON HELTON DO Ot 250.02 DIAB JESUS WO COMPL, TYPE II OR UNSPEC TY 04/02/2017 JEFFERSON HELTON DO Ot 272.0 PURE HYPERCHOLESTEROLEM 04/02/2017 JEFFERSON HELTON DO Ot 401.1 BENIGN HYPERTENSION 04/02/2017 JEFFERSON HELTON DO Ot V58.69 OT MED,LT,CURRENT USE 04/02/2017 TL JC MD Ot 250.00 DIAB JESUS WO COMPL, TYPE II OR UNSPEC TY 04/02/2017 TL JC MD Ot 272.4 HYPERLIPIDEMIA NEC/NOS 04/02/2017 TL JC MD Ot 401.9 HYPERTENSION NOS 04/02/2017 TL JC MD Ot 414.00 CORON ATHEROSCLER NOS TYPE VESSEL, NATIV 04/02/2017 TRISH COLLINS Ot E78.5 HYPERLIPIDEMIA, UNSPECIFIED 04/02/2017 TRISH COLLINS Ot I10 ESSENTIAL (PRIMARY) HYPERTENSION 04/02/2017 TRISH COLLINS Ot I25.10 ATHSCL HEART DISEASE OF [place] CORONARY 04/02/2017 TRISH COLLINS Ot I48.91 UNSPECIFIED ATRIAL FIBRILLATION 04/02/2017 JEFFERSON HELTON DO Ot 250.02 DIAB JESUS WO COMPL, TYPE II OR UNSPEC TY 04/02/2017 JEFFERSON HELTON DO Ot 272.0 PURE HYPERCHOLESTEROLEM 04/02/2017 JEFFERSON HELTON DO Ot 401.1 BENIGN HYPERTENSION 04/02/2017 JEFFERSON HELTON DO Ot 427.31 ATRIAL FIBRILLATION 04/02/2017 JEFFERSON HELTON DO Ot V58.69 OT MED,LT,CURRENT USE 04/02/2017 JEFFERSON HELTON DO Ot V70.0 ROUTINE MEDICAL EXAM 04/02/2017 JEFFERSON HELTON DO Ot Z12.31 ENCNTR SCREEN MAMMOGRAM FOR MALIGNANT NE 04/02/2017 Ot E11.65 TYPE 2 DIABETES MELLITUS WITH HYPERGLYCE 04/02/2017 Ot E55.9 VITAMIN D DEFICIENCY, UNSPECIFIED 04/02/2017 Ot E78.0 PURE HYPERCHOLESTEROLEMIA 04/02/2017 Ot E78.1 PURE HYPERGLYCERIDEMIA 04/02/2017 Ot Z00.00 ENCNTR FOR GENERAL ADULT MEDICAL EXAM W/ 04/02/2017 TL JC MD Ot E78.2 MIXED HYPERLIPIDEMIA 04/02/2017 TL JC MD Ot 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 04/02/2017 TL JC MD Ot I25.10 ATHSCL HEART DISEASE OF [place] CORONARY 04/02/2017 TL JC MD Ot I48.0 PAROXYSMAL ATRIAL FIBRILLATION 04/02/2017 KATI HERNANDEZ DO Ot I48.0 PAROXYSMAL ATRIAL FIBRILLATION 04/02/2017 DAVID MARES KATI M Ot R06.00 DYSPNEA, UNSPECIFIED 04/02/2017 KATI HERNANDEZ DO Ot R09.02 HYPOXEMIA 04/02/2017 KATI HERNANDEZ DO Ot R22.43 LOCALIZED SWELLING, MASS AND LUMP, LOWER 04/02/2017 LILO GARRIDO Addis YUDELKA Ot R09.02 HYPOXEMIA 07/08/2018 TOYA DEVI DO Ot Z01.818 ENCOUNTER FOR OTHER PREPROCEDURAL EXAMIN Procedures Code Description Performed By Performed On [id number] EXCISION OF ESOPHAGOGASTRIC JUNCTION, EN 01/07/2017 [id number] EXCISION OF STOMACH, PYLORUS, ENDO, DIAG 01/07/2017 Results Test Result Range Sed Rate - 10/23/16 16:54 Sed Rate 84 mm/hr 9-15 Other Culture - 10/23/16 21:00 PRELIM CULTURE RESULTS Scant Gram Positive ROBBIN / ID to Follow [id number] Dipthroids No Further Workup Done MEDIA PLATED Setup at 21:46 on 10/23/2016 Sensi - 10/23/16 21:00 FINAL CULTURE RESULTS Staphylococcus aureus (Isolate 1) Ampicillin/Sulbactam <=8/4 Ampicillin <=2 Amoxicillin/K Clavulanate <=4/2 Ceftriaxone <=8 Clindamycin <=0.5 Cefoxitin Screen <=4 Ciprofloxacin <=1 Daptomycin <=0.5 Erythromycin <=0.5 Nitrofurantoin <=32 Gentamicin <=4 Gentamicin Synergy Screen N/R Inducible Clindamycin N/R Levofloxacin <=1 Linezolid 4 Moxifloxacin <=0.5 Oxacillin <=0.25 Penicillin <=0.03 Rifampin <=1 Streptomycin Synergy N/R Synercid <=0.5 Trimethoprim/ Sulfamethoxazole <=0.5/9.5 Tetracycline <=4 Vancomycin 1 Hemoglobin A1C - 10/24/16 05:15 % A1C 5.70 % 5.40-6.60 AvGlu 126 mg/dL 70-110 Lipid Panel - 10/25/16 05:00 C/HDL 2.1 3.7-6.7 Cholesterol 151 mg/dL 100-240 HDL 71 mg/dL 30-85 LDL-Calculated 64 mg/dL 0-100 Trig 82 mg/dL 35-160 VLDL 16 mg/dL 0-42 Complete blood count (CBC) with automated white blood cell (WBC) differential - 01/05/17 14:10 Blood leukocytes automated count (number/volume) 8.3 10*3/uL 4.3-11.0 Blood erythrocytes automated count (number/volume) 2.90 10*6/uL 4.35-5.85 Venous blood hemoglobin measurement (mass/volume) 8.2 g/dL 11.5-16.0 Blood hematocrit (volume fraction) 27 % 35-52 Automated erythrocyte mean corpuscular volume 92 [foz_us] 80-99 Automated erythrocyte mean corpuscular hemoglobin (mass per erythrocyte) 28 pg 25-34 Automated erythrocyte mean corpuscular hemoglobin concentration measurement ( mass/volume) 31 g/dL 32-36 Automated erythrocyte distribution width ratio 15.7 % 10.0-14.5 Automated blood platelet count (count/volume) 298 10*3/uL 130-400 Automated blood platelet mean volume measurement 10.6 [foz_us] 7.4-10.4 Automated blood neutrophils/100 leukocytes 49 % 42-75 Automated blood lymphocytes/100 leukocytes 36 % 12-44 Blood monocytes/100 leukocytes 13 % 0-12 Automated blood eosinophils/100 leukocytes 2 % 0-10 Automated blood basophils/100 leukocytes 1 % 0-10 Blood neutrophils automated count (number/volume) 4.1 10*3 1.8-7.8 Blood lymphocytes automated count (number/volume) 3.0 10*3 1.0-4.0 Blood monocytes automated count (number/volume) 1.1 10*3 0.0-1.0 Automated eosinophil count 0.1 10*3/uL 0.0-0.3 Automated blood basophil count (count/volume) 0.0 10*3/uL 0.0-0.1 PT panel in platelet poor plasma by coagulation assay - 01/05/17 14:10 Prothrombin time (PT) in platelet poor plasma by coagulation assay 13.9 s 12.2-14.7 INR in platelet poor plasma or blood by coagulation assay 1.1 0.8-1.4 Blood lactic acid measurement (moles/volume) - 01/05/17 14:10 Blood lactic acid measurement (moles/volume) 2.26 mmol/L 0.50-2.00 Comprehensive metabolic panel - 01/05/17 14:10 Serum or plasma sodium measurement (moles/volume) 139 mmol/L 135-145 Serum or plasma potassium measurement (moles/volume) 4.0 mmol/L 3.6-5.0 Serum or plasma chloride measurement (moles/volume) 104 mmol/L 98-107 Carbon dioxide 26 mmol/L 21-32 Serum or plasma anion gap determination (moles/volume) 9 mmol/L 5-14 Serum or plasma urea nitrogen measurement (mass/volume) 22 mg/dL 7-18 Serum or plasma creatinine measurement (mass/volume) 0.81 mg/dL 0.60-1.30 Serum or plasma urea nitrogen/creatinine mass ratio 27 NRG Serum or plasma creatinine measurement with calculation of estimated glomerular filtration rate > NRG Serum or plasma glucose measurement (mass/volume) 104 mg/dL 70-105 Serum or plasma calcium measurement (mass/volume) 9.0 mg/dL 8.5-10.1 Serum or plasma total bilirubin measurement (mass/volume) 0.4 mg/dL 0.1-1.0 Serum or plasma alkaline phosphatase measurement (enzymatic activity/volume) 43 U/L 40-136 Serum or plasma aspartate aminotransferase measurement (enzymatic activity/ volume) 15 U/L 5-34 Serum or plasma alanine aminotransferase measurement (enzymatic activity/volume ) 15 U/L 0-55 Serum or plasma protein measurement (mass/volume) 6.2 g/dL 6.4-8.2 Serum or plasma albumin measurement (mass/volume) 3.6 g/dL 3.2-4.5 Serum or plasma lithium measurement (moles/volume) - 01/05/17 14:10 BNP level 251.2 pg/mL <100.0 Serum or plasma troponin i.cardiac measurement (mass/volume) - 01/05/17 14:10 Serum or plasma troponin i.cardiac measurement (mass/volume) < ng/ mL <0.30 Blood type T Indirect antibody screen panel - 01/05/17 14:10 ABO+Rh group AP [facility] Transfusion band number [id number] [facility] Blood group antibody screen NEGATIVE [facility] Complete urinalysis with reflex to culture - 01/05/17 15:00 Urine color determination YELLOW NRG Urine clarity determination CLEAR NRG Urine pH measurement by test strip 7 5-9 Specific gravity of urine by test strip 1.010 1.016- 1.022 Urine protein assay by test strip, semi-quantitative NEGATIVE NEGATIVE Urine glucose detection by automated test strip NEGATIVE NEGATIVE Erythrocytes detection in urine sediment by light microscopy 1+ NEGATIVE Urine ketones detection by automated test strip NEGATIVE NEGATIVE Urine nitrite detection by test strip POSITIVE NEGATIVE Urine total bilirubin detection by test strip NEGATIVE NEGATIVE Urine urobilinogen measurement by automated test strip (mass/volume) NORMAL NORMAL Urine leukocyte esterase detection by dipstick NEGATIVE NEGATIVE Automated urine sediment erythrocyte count by microscopy (number/high power field) NONE NRG Automated urine sediment leukocyte count by microscopy (number/high power field ) [HPF] NRG Bacteria detection in urine sediment by light microscopy FEW NRG Squamous epithelial cells detection in urine sediment by light microscopy 5-10 NRG Crystals detection in urine sediment by light microscopy PRESENT NRG Casts detection in urine sediment by light microscopy NONE NRG Mucus detection in urine sediment by light microscopy NEGATIVE NRG Complete urinalysis with reflex to culture YES NRG Amorphous sediment detection in urine sediment by light microscopy MOD DIAZ PHOSPHATE NRG Bacterial urine culture - 01/05/17 15:00 Bacterial urine culture [id number] NRG COLONY COUNT 10,000/ML - 100,000/ML NRG FTX;REPORTABLE SENSITIVITY REPORTED 01/07/17 7:40 NRG FREE TEXT ENTRY 2 PLUS, LACTOBACILLUS 10-100,000/ML AND NRG FREE TEXT ENTRY 3 MIXED GRAM POSITIVES <10,000/ML NRG Bacterial susceptibility panel - 01/05/17 15:00 Gentamicin susceptibility test by minimum inhibitory concentration < = NRG Trimethoprim/sulfamethoxazole susceptibility test by minimum inhibitoryconcentration <= NRG Ampicillin susceptibility test by minimum inhibitory concentration 4 NRG Tobramycin susceptibility test by minimum inhibitory concentration < = NRG Cefazolin susceptibility test by minimum inhibitory concentration < = NRG Ceftriaxone susceptibility test by minimum inhibitory concentration <= NRG Ampicillin/sulbactam susceptibility test by minimum inhibitory concentration <= NRG Piperacillin/tazobactam susceptibility test by minimum inhibitory concentration <= NRG Ciprofloxacin susceptibility test by minimum inhibitory concentration <= NRG Meropenem susceptibility test by minimum inhibitory concentration < = NRG Nitrofurantoin susceptibility test by minimum inhibitory concentration <= NRG Aztreonam susceptibility test by minimum inhibitory concentration < = NRG Extended spectrum beta lactamase (ESBL) producing bacteria susceptibility test by minimum inhibitory concentration - NRG Serum or plasma lactate measurement (moles/volume) - 01/05/17 17:20 Serum or plasma lactate measurement (moles/volume) 1.15 mmol/L 0.50-2.00 Venous blood hemoglobin measurement (mass/volume) - 01/05/17 19:30 Venous blood hemoglobin measurement (mass/volume) 6.9 g/dL 11.5-16.0 Complete blood count (CBC) with automated white blood cell (WBC) differential - 01/06/17 05:15 Blood leukocytes automated count (number/volume) 6.5 10*3/uL 4.3-11.0 Blood erythrocytes automated count (number/volume) 2.69 10*6/uL 4.35-5.85 Venous blood hemoglobin measurement (mass/volume) 7.6 g/dL 11.5-16.0 Blood hematocrit (volume fraction) 25 % 35-52 Automated erythrocyte mean corpuscular volume 92 [foz_us] 80-99 Automated erythrocyte mean corpuscular hemoglobin (mass per erythrocyte) 28 pg 25-34 Automated erythrocyte mean corpuscular hemoglobin concentration measurement ( mass/volume) 31 g/dL 32-36 Automated erythrocyte distribution width ratio 15.8 % 10.0-14.5 Automated blood platelet count (count/volume) 273 10*3/uL 130-400 Automated blood platelet mean volume measurement 10.3 [foz_us] 7.4-10.4 Automated blood neutrophils/100 leukocytes 52 % 42-75 Automated blood lymphocytes/100 leukocytes 32 % 12-44 Blood monocytes/100 leukocytes 14 % 0-12 Automated blood eosinophils/100 leukocytes 2 % 0-10 Automated blood basophils/100 leukocytes 0 % 0-10 Blood neutrophils automated count (number/volume) 3.3 10*3 1.8-7.8 Blood lymphocytes automated count (number/volume) 2.1 10*3 1.0-4.0 Blood monocytes automated count (number/volume) 0.9 10*3 0.0-1.0 Automated eosinophil count 0.1 10*3/uL 0.0-0.3 Automated blood basophil count (count/volume) 0.0 10*3/uL 0.0-0.1 Comprehensive metabolic panel - 01/06/17 05:15 Serum or plasma sodium measurement (moles/volume) 142 mmol/L 135-145 Serum or plasma potassium measurement (moles/volume) 3.7 mmol/L 3.6-5.0 Serum or plasma chloride measurement (moles/volume) 109 mmol/L 98-107 Carbon dioxide 26 mmol/L 21-32 Serum or plasma anion gap determination (moles/volume) 7 mmol/L 5-14 Serum or plasma urea nitrogen measurement (mass/volume) 17 mg/dL 7-18 Serum or plasma creatinine measurement (mass/volume) 0.74 mg/dL 0.60-1.30 Serum or plasma urea nitrogen/creatinine mass ratio 23 NRG Serum or plasma creatinine measurement with calculation of estimated glomerular filtration rate > NRG Serum or plasma glucose measurement (mass/volume) 102 mg/dL 70-105 Serum or plasma calcium measurement (mass/volume) 8.1 mg/dL 8.5-10.1 Serum or plasma total bilirubin measurement (mass/volume) 0.5 mg/dL 0.1-1.0 Serum or plasma alkaline phosphatase measurement (enzymatic activity/volume) 45 U/L 40-136 Serum or plasma aspartate aminotransferase measurement (enzymatic activity/ volume) 17 U/L 5-34 Serum or plasma alanine aminotransferase measurement (enzymatic activity/volume ) 14 U/L 0-55 Serum or plasma protein measurement (mass/volume) 5.8 g/dL 6.4-8.2 Serum or plasma albumin measurement (mass/volume) 3.3 g/dL 3.2-4.5 Complete blood count (CBC) with automated white blood cell (WBC) differential - 01/07/17 04:20 Blood leukocytes automated count (number/volume) 6.6 10*3/uL 4.3-11.0 Blood erythrocytes automated count (number/volume) 2.78 10*6/uL 4.35-5.85 Venous blood hemoglobin measurement (mass/volume) 7.8 g/dL 11.5-16.0 Blood hematocrit (volume fraction) 25 % 35-52 Automated erythrocyte mean corpuscular volume 91 [foz_us] 80-99 Automated erythrocyte mean corpuscular hemoglobin (mass per erythrocyte) 28 pg 25-34 Automated erythrocyte mean corpuscular hemoglobin concentration measurement ( mass/volume) 31 g/dL 32-36 Automated erythrocyte distribution width ratio 15.9 % 10.0-14.5 Automated blood platelet count (count/volume) 296 10*3/uL 130-400 Automated blood platelet mean volume measurement 10.3 [foz_us] 7.4-10.4 Automated blood neutrophils/100 leukocytes 61 % 42-75 Automated blood lymphocytes/100 leukocytes 24 % 12-44 Blood monocytes/100 leukocytes 13 % 0-12 Automated blood eosinophils/100 leukocytes 2 % 0-10 Automated blood basophils/100 leukocytes 1 % 0-10 Blood neutrophils automated count (number/volume) 4.0 10*3 1.8-7.8 Blood lymphocytes automated count (number/volume) 1.5 10*3 1.0-4.0 Blood monocytes automated count (number/volume) 0.8 10*3 0.0-1.0 Automated eosinophil count 0.1 10*3/uL 0.0-0.3 Automated blood basophil count (count/volume) 0.0 10*3/uL 0.0-0.1 Whole blood basic metabolic panel - 01/07/17 04:20 Serum or plasma sodium measurement (moles/volume) 143 mmol/L 135-145 Serum or plasma potassium measurement (moles/volume) 3.3 mmol/L 3.6-5.0 Serum or plasma chloride measurement (moles/volume) 110 mmol/L 98-107 Carbon dioxide 22 mmol/L 21-32 Serum or plasma anion gap determination (moles/volume) 11 mmol/L 5-14 Serum or plasma urea nitrogen measurement (mass/volume) 10 mg/dL 7-18 Serum or plasma creatinine measurement (mass/volume) 0.74 mg/dL 0.60-1.30 Serum or plasma urea nitrogen/creatinine mass ratio 14 NRG Serum or plasma creatinine measurement with calculation of estimated glomerular filtration rate > NRG Serum or plasma glucose measurement (mass/volume) 113 mg/dL 70-105 Serum or plasma calcium measurement (mass/volume) 7.9 mg/dL 8.5-10.1 Automated blood complete blood count (hemogram) panel - 01/08/17 09:27 Blood leukocytes automated count (number/volume) 8.4 10*3/uL 4.3-11.0 Blood erythrocytes automated count (number/volume) 3.03 10*6/uL 4.35-5.85 Venous blood hemoglobin measurement (mass/volume) 8.4 g/dL 11.5-16.0 Blood hematocrit (volume fraction) 28 % 35-52 Automated erythrocyte mean corpuscular volume 93 [foz_us] 80-99 Automated erythrocyte mean corpuscular hemoglobin (mass per erythrocyte) 28 pg 25-34 Automated erythrocyte mean corpuscular hemoglobin concentration measurement ( mass/volume) 30 g/dL 32-36 Automated erythrocyte distribution width ratio 16.8 % 10.0-14.5 Automated blood platelet count (count/volume) 362 10*3/uL 130-400 Automated blood platelet mean volume measurement 10.4 [foz_us] 7.4-10.4 Comprehensive metabolic panel - 01/08/17 09:27 Serum or plasma sodium measurement (moles/volume) 142 mmol/L 135-145 Serum or plasma potassium measurement (moles/volume) 3.1 mmol/L 3.6-5.0 Serum or plasma chloride measurement (moles/volume) 109 mmol/L 98-107 Carbon dioxide 24 mmol/L 21-32 Serum or plasma anion gap determination (moles/volume) 9 mmol/L 5-14 Serum or plasma urea nitrogen measurement (mass/volume) 10 mg/dL 7-18 Serum or plasma creatinine measurement (mass/volume) 0.82 mg/dL 0.60-1.30 Serum or plasma urea nitrogen/creatinine mass ratio 12 NRG Serum or plasma creatinine measurement with calculation of estimated glomerular filtration rate > NRG Serum or plasma glucose measurement (mass/volume) 186 mg/dL 70-105 Serum or plasma calcium measurement (mass/volume) 8.2 mg/dL 8.5-10.1 Serum or plasma total bilirubin measurement (mass/volume) 0.5 mg/dL 0.1-1.0 Serum or plasma alkaline phosphatase measurement (enzymatic activity/volume) 52 U/L 40-136 Serum or plasma aspartate aminotransferase measurement (enzymatic activity/ volume) 19 U/L 5-34 Serum or plasma alanine aminotransferase measurement (enzymatic activity/volume ) 16 U/L 0-55 Serum or plasma protein measurement (mass/volume) 6.6 g/dL 6.4-8.2 Serum or plasma albumin measurement (mass/volume) 3.8 g/dL 3.2-4.5 Comprehensive metabolic panel - 01/09/17 06:00 Serum or plasma sodium measurement (moles/volume) 142 mmol/L 135-145 Serum or plasma potassium measurement (moles/volume) 3.2 mmol/L 3.6-5.0 Serum or plasma chloride measurement (moles/volume) 110 mmol/L 98-107 Carbon dioxide 22 mmol/L 21-32 Serum or plasma anion gap determination (moles/volume) 10 mmol/L 5-14 Serum or plasma urea nitrogen measurement (mass/volume) 17 mg/dL 7-18 Serum or plasma creatinine measurement (mass/volume) 1.19 mg/dL 0.60-1.30 Serum or plasma urea nitrogen/creatinine mass ratio 14 NRG Serum or plasma creatinine measurement with calculation of estimated glomerular filtration rate 44 NRG Serum or plasma glucose measurement (mass/volume) 119 mg/dL 70-105 Serum or plasma calcium measurement (mass/volume) 8.1 mg/dL 8.5-10.1 Serum or plasma total bilirubin measurement (mass/volume) 0.5 mg/dL 0.1-1.0 Serum or plasma alkaline phosphatase measurement (enzymatic activity/volume) 51 U/L 40-136 Serum or plasma aspartate aminotransferase measurement (enzymatic activity/ volume) 18 U/L 5-34 Serum or plasma alanine aminotransferase measurement (enzymatic activity/volume ) 17 U/L 0-55 Serum or plasma protein measurement (mass/volume) 5.9 g/dL 6.4-8.2 Serum or plasma albumin measurement (mass/volume) 3.4 g/dL 3.2-4.5 Complete blood count (CBC) with automated white blood cell (WBC) differential - 01/09/17 06:00 Blood leukocytes automated count (number/volume) 7.3 10*3/uL 4.3-11.0 Blood erythrocytes automated count (number/volume) 2.68 10*6/uL 4.35-5.85 Venous blood hemoglobin measurement (mass/volume) 7.6 g/dL 11.5-16.0 Blood hematocrit (volume fraction) 25 % 35-52 Automated erythrocyte mean corpuscular volume 94 [foz_us] 80-99 Automated erythrocyte mean corpuscular hemoglobin (mass per erythrocyte) 28 pg 25-34 Automated erythrocyte mean corpuscular hemoglobin concentration measurement ( mass/volume) 30 g/dL 32-36 Automated erythrocyte distribution width ratio 17.0 % 10.0-14.5 Automated blood platelet count (count/volume) 324 10*3/uL 130-400 Automated blood platelet mean volume measurement 10.2 [foz_us] 7.4-10.4 Automated blood neutrophils/100 leukocytes 52 % 42-75 Automated blood lymphocytes/100 leukocytes 32 % 12-44 Blood monocytes/100 leukocytes 13 % 0-12 Automated blood eosinophils/100 leukocytes 2 % 0-10 Automated blood basophils/100 leukocytes 1 % 0-10 Blood neutrophils automated count (number/volume) 3.8 10*3 1.8-7.8 Blood lymphocytes automated count (number/volume) 2.4 10*3 1.0-4.0 Blood monocytes automated count (number/volume) 1.0 10*3 0.0-1.0 Automated eosinophil count 0.1 10*3/uL 0.0-0.3 Automated blood basophil count (count/volume) 0.0 10*3/uL 0.0-0.1 Encounters ACCT No. Visit Date/Time Discharge Status Pt. Type Provider Facility Loc./Unit Complaint [id number] 07/08/2018 06:14:00 07/08/2018 13:11:00 DIS Outpatient TOYA DEVI DO [facility] PREOP COLONOSCOPY/EGD [id number] 04/02/2018 07:46:00 04/02/2018 23:59:59 CLS Preadmit TL JC MD [facility] CARD CAD,HTN,A-FIB [id number] 02/01/2017 12:04:00 02/01/2017 23:59:59 CLS Outpatient LILO GARRIDO APRN [facility] LAB R09.02 [id number] 01/29/2017 11:37:00 01/29/2017 23:59:59 CLS Outpatient KATI HERNANDEZ DO [facility] RAD M79.89 LEG SWELLING R09.02 [id number] 01/25/2017 13:48:00 01/25/2017 23:59:59 CLS Preadmit LILO GARRIDO MAGNETIC TAPE WINDER [facility] SLEEP G47.10 HYPERSOMNIA [id number] 01/25/2017 13:39:00 01/25/2017 23:59:59 CLS Preadmit LILO GARRIDO MAGNETIC TAPE WINDER [facility] RAD R09.02 HYPOXEMIA REQUIRING SUPPLEMENTAL OXYGEN [id number] 01/22/2017 08:44:00 01/22/2017 23:59:59 CLS Outpatient TL JC MD [facility] CARD AFIB I48.0 [id number] 01/05/2017 12:45:00 01/09/2017 14:26:00 DIS Inpatient TRACY CHAVEZ, LESIA Hernández [facility] 4TH GI BLEED [id number] 10/21/2016 21:26:00 10/21/2016 23:06:00 DIS Emergency THAO , VIJAY D [facility] ER FALL/RIGHT HIP PAIN [id number] 03/17/2016 09:34:00 03/17/2016 11:39:00 DIS Emergency JESSIE CHAVEZ, СВЕТЛАНА Lacy [facility] ER FALL/RT SHOULDER PAIN [id number] 04/22/2015 08:34:00 04/22/2015 10:29:00 DIS Emergency JESSIE CHAVEZ, СВЕТЛАНА Lacy [facility] ER FALL/HEAD INJURY [id number] 03/04/2015 12:56:00 03/04/2015 23:59:59 CLS Outpatient TRISH COLLINS [facility] CARD AFIB,CAD,HTN ,HLP [id number] 01/22/2015 10:17:00 01/22/2015 23:59:59 CLS Outpatient SUNITHA MARES JEFFERSON [facility] RAD SCREENING [id number] 09/08/2014 08:17:00 09/08/2014 23:59:59 CLS Outpatient SUNITHA DO JEFFERSON [facility] LAB A-FIB,NIDDM,HTN, HYPERCHOLESTEROLEMIA [id number] 04/02/2014 09:00:00 04/02/2014 23:59:59 CLS Preadmit TL JC MD [facility] CARD CAD,HTN, [id number] 04/01/2014 07:41:00 04/01/2014 23:59:59 CLS Outpatient SUNITHA DO JEFFERSON [facility] LAB DM,HTN,HLP [id number] 01/01/2014 08:51:00 04/01/2014 00:01:00 DIS Outpatient TL JC MD [facility] CARD CAD,HTN, [id number] 12/09/2013 08:19:00 12/09/2013 23:59:59 CLS Outpatient HELTON DO, JEFFERSON [facility] RAD SCREENING,MED MONITORING, VIT D DEF,WT GAIN,EDEMA,H [id number] 06/10/2013 08:35:00 06/10/2013 23:59:59 CLS Outpatient HELTON DO, JEFFERSON [facility] LAB DIABETES ,HTN,EDEMA,MED WT GAIN [id number] 12/11/2012 09:16:00 12/11/2012 23:59:59 CLS Outpatient HELTON DO, JEFFERSON [facility] LAB HYPERTENSION, HYPERCHOLESTEROL,EDEMA,OSTEOARTHRITIS [id number] 12/10/2012 16:23:00 12/10/2012 23:59:59 CLS Outpatient HELTON DO, JEFFERSON [facility] LAB DIABETES MELLITIS NON INSULIN DEPEND,ANXIETY [id number] 08/30/2012 09:32:00 08/30/2012 23:59:59 CLS Outpatient ABEBE QUINTANILLA [facility] CARD LVF, HTN [id number] 08/21/2012 11:22:00 08/21/2012 23:59:59 CLS Outpatient HELTON DO, JEFFERSON [facility] RAD SCREENING [id number] 08/09/2012 09:25:00 08/09/2012 23:59:59 CLS Outpatient HELTON DO, JEFFERSON [facility] LAB HEALTH SCREENING, MEDICATION MONITORING [id number] 08/09/2012 09:17:00 08/09/2012 23:59:59 CLS Outpatient ABEBE QUINTANILLAP [facility] LAB HYPERTENSION [id number] 07/12/2018 14:00:00 PEN Preadmit DEVITOYA DAVISON DO [facility] ENDO IRON DEF ANEMIA/OCCULT + STOOL [id number] 03/04/2015 08:31:00 Document Registration [id number] 01/22/2015 10:18:00 Document Registration [id number] 01/22/2015 10:18:00 Document Registration [id number] 01/22/2015 10:18:00 Document Registration [id number] 01/22/2015 10:18:00 Document Registration [id number] 01/22/2015 10:18:00 Document Registration [id number] 01/22/2015 10:18:00 Document Registration [id number] 01/22/2015 10:18:00 Document Registration [id number] 07/07/2011 08:52:00 Document Registration [id number] 02/27/2011 08:22:00 Document Registration [id number] 10/21/2010 09:14:00 Document Registration [id number] 05/27/2010 08:55:00 Document Registration [id number] 05/03/2010 13:00:00 Document Registration [id number] 02/14/2010 05:46:00 Document Registration [id number] 02/10/2010 09:32:00 Document Registration [id number] 01/18/2010 09:47:00 Document Registration [id number] 09/22/2009 05:35:00 Document Registration [id number] 09/21/2009 07:51:00 Document Registration [id number] 09/06/2009 10:00:00 Document Registration [id number] 08/31/2009 09:20:00 Document Registration [id number] 11/13/2016 10:00:00 11/28/2016 00:00:00 DIS Outpatient YAZMIN BLACKMAN [id number] 11/09/2016 09:00:00 11/09/2016 09:00:00 CAN Outpatient YAZMIN BLACKMAN [id number] 10/24/2016 09:50:00 11/08/2016 08:55:00 DIS Inpatient YEHUDA [facility] [id number] 10/23/2016 16:25:00 10/24/2016 10:00:00 DIS Outpatient Sunitha [facility] [id number] 05/02/2016 09:00:00 08/24/2016 16:00:00 DIS Outpatient YAZMIN BLACKMAN [id number] 05/23/2016 00:00:00 07/27/2016 14:00:00 DIS Outpatient YAZMIN BLACKMAN [id number] 05/23/2016 13:08:00 05/23/2016 13:08:00 CAN Outpatient YEHUDA YAZMIN [id number] 10/23/2016 17:55:40 Document Registration
[2018-07-12] MEDS ORDERED: LACTATED RINGERS 1,000 ML IV ONE (12:59)
[2018-07-12] MEDS ORDERED: LACTATED RINGERS 1,000 ML IV STA (13:31)
[2018-07-12 13:41] VITALS: BP 148/99
[2018-07-12] MEDS ORDERED: HURRICAINE EXT TUBE (BENZOCAINE) XX PRN (13:45)
[2018-07-12] MEDS ORDERED: PROPOFOL INJECTION 50 ML IV ONE (14:46)
--- NOTE | 2018-07-12 14:56 | Progress Note-Pre Operative ---
Pre-Operative Progress Note H&P Reviewed The H&P was reviewed, patient examined and no changes noted. Date Seen by Provider: Jul 12, 2018 Time Seen by Provider: 14:56 Date H&P Reviewed: Jul 12, 2018 Time H&P Reviewed: 14:56 Pre-Operative Diagnosis: iron def anemia, occult + stool TOYA DEVI DO Jul 12, 2018 14:56
[2018-07-12] MEDS ORDERED: proPOfol 200 MG/20 ML (DIPRIVAN) VIAL IV ONE (15:27)
--- NOTE | 2018-07-12 15:56 | Progress Note-Post Operative ---
Post-Operative Progess Note Surgeon (s)/Learning Services Coordinator (s) Surgeon TOYA DEVI DO Learning Services Coordinator: NA Pre-Operative Diagnosis iron def anemia, occult + stool Post-Operative Diagnosis Gastritis, diverticulosis, internal hemorrhoids Procedure & Operative Findings Date of Procedure 07/12/18 Procedure Performed/Findings EGD w/ biopsies, incomplete colonoscopy Anesthesia Type per APPLICATIONS PROGRAMMER ANALYST Estimated Blood Loss Estimated blood loss (mL): None Specimens/Packing Specimens Removed Antrum TOYA DEVI DO Jul 12, 2018 15:56
--- NOTE | 2018-07-12 15:59 | Discharge Instructions ---
Discharge Instructions Patient Instructions Patient Instructions: Follow up Iron 2 weeks. Activity & Diet Discharge Diet: No Restrictions Activity as Tolerated: Yes TOYA DEVI DO Jul 12, 2018 15:59
[2018-07-12 16:15] VITALS: BP 122/77
[2018-07-12 16:30] VITALS: BP 127/78
[2018-07-12 16:35] VITALS: BP 127/78
--- NOTE | 2018-07-12 17:02 | NUR ---
1635 PT TRANSFERRED PER W/C TO CT FOR CT OF ABD/PELVIS WITH RECTAL CONTRAST. PT A/O X4. ACCOMPANIED BY FAMILY. PT WILL BE DISCHARGED TO HOME FOR CT.
--- NOTE | 2018-07-12 18:24 | Diagnostic Imaging Report ---
PROCEDURE: CT abdomen and pelvis without contrast. TECHNIQUE: Multiple contiguous axial images were obtained through the abdomen and pelvis without the use of intravenous contrast. Auto Exposure Controls were utilized during the CT exam to meet ALARA standards for radiation dose reduction. INDICATION: Positive occult stools. Iron deficiency. Post colonoscopy. FINDINGS: There is rectal contrast present. No acute abnormality in the colon is seen. There is diverticulosis. No abnormally dilated loops of small bowel are seen. There is no bowel wall edema. The liver is normal. There are are small gallstones in the dependent portion of the gallbladder. The bile ducts are not dilated. There are granulomatous calcifications in the spleen. The pancreas and adrenals are normal. The kidneys, ureters and bladder are normal. IMPRESSION: There is diverticulosis of the colon. There is cholelithiasis. No acute abnormality is seen. Dictated by: Dictated on workstation # [id number]
--- NOTE | 2018-07-13 03:26 | OPERATIVE REPORT ---
DATE OF SERVICE: 07/12/2018 PREOPERATIVE DIAGNOSES: Iron deficiency anemia and occult positive blood in stool. POSTOPERATIVE DIAGNOSES: Gastritis, diverticulosis and internal hemorrhoids. PROCEDURE: EGD with biopsies and incomplete colonoscopy. SURGEON: Toya Perdue DO ANESTHESIA: Per HAND TRIMMER. ESTIMATED BLOOD LOSS: None. COMPLICATIONS: None. INDICATIONS: The patient is an 82-year-old female with iron deficiency anemia and occult positive stool. She was explained risks and benefits of procedure and wished to proceed with procedure. Consent was signed in the chart. DESCRIPTION OF PROCEDURE: The patient was taken to the endoscopy suite, placed in left lateral recumbent position. Timeout was performed. Scope was inserted into the mouth, down the esophagus, stomach and into the duodenum without difficulty. There were no polyps, masses or ulcerations in the duodenum. Scope was slowly retracted back into the stomach, which had some slight erythematous changes and some reactive appearing changes. Biopsies of the antrum were obtained. Scope was retroflexed noting no other pathology. Scope was returned to its normal position, slowly withdrawn to the distal esophagus, which had normal appearance. No polyps, masses or ulcerations. Scope was slowly retracted back to completely remove, noting no other pathology. Digital rectal exam was then performed. The patient noted to have fairly significant internal hemorrhoids. Scope was inserted in the rectum and began to be advanced towards the cecum. Prep was adequate. Scope was able to get all the way to the ascending colon, the proximal portion; however, the scope was unable to be advanced further. The patient was then repositioned multiple times without any further success at advancing the scope. Scope was retracted and tried to be advanced again multiple times, which was not successful either. At this time, I decided to abort the colonoscopy portion and the scope was then slowly retracted back. There were no polyps, masses or ulcerations within the portion of the ascending colon visualized. Scope was continuously retracted back through the transverse, descending and sigmoid colon noting significant amount of diverticulosis throughout the sigmoid colon and some in the descending and transverse colon. Scope once in the rectum was retroflexed noting the internal hemorrhoids. Scope was returned to its normal position, slowly withdrawn until completely removed. The patient tolerated procedure well without any complications. She was taken to recovery room in stable condition. The patient will be sent for CT scan with rectal contrast to evaluate the remainder of the colon. The occult positive stool could be from the hemorrhoids or diverticulosis if she has had bleeding and not noticed. RECOMMENDATIONS: The patient will follow up in 2 weeks to discuss further recommendations. Job ID: [id number] DocumentID: [id number] Dictated Date: 07/12/2018 18:40:32 Greens Cutter Date: 07/13/2018 03:26:43 Dictated By: TOYA PERDUE DO
== END 2018-07-12 16:35 | disposition home or self-care (01) ==
LOC: ENDO 12:32
PROVIDERS: ATTEND Surgery
DX: K57.30 Diverticulosis of large intestine without perforation or abscess without bleeding (principal); K64.8 Other hemorrhoids; K29.70 Gastritis, unspecified, without bleeding; D50.9 Iron deficiency anemia, unspecified; E11.9 Type 2 diabetes mellitus without complications; I25.10 Atherosclerotic heart disease of native coronary artery without angina pectoris; I10 Essential (primary) hypertension; I48.91 Unspecified atrial fibrillation; E66.01 Morbid (severe) obesity due to excess calories; Z68.43 Body mass index [BMI] 50.0-59.9, adult; Z87.891 Personal history of nicotine dependence; Z79.01 Long term (current) use of anticoagulants; Z79.899 Other long term (current) drug therapy
CPT/HCPCS: 74176